=== PATIENT | female | born 1965 | race Caucasian/White ===

== ENCOUNTER → 2017-11-10 15:22 | Outpatient (CLI) | payer OTHER, SELFPAY ==
--- NOTE | 2017-11-10 15:27 | NVE_ITS ---
Venous Exam Indications: 729.5 Pain in limb. IMPRESSIONS 1. There is no evidence of significant Reflux. 2. No evidence of deep or superficial vein thrombosis involving the left lower extremity 3. Vessels in lower leg are small. Left lower extremity venous duplex evaluation. Doppler flow study including spectral analysis, color and jacinto scale imaging. Location: Vascular laboratory. Patient status: Outpatient. Tables: Venous flow and imaging: + +-------+ + Location Overall Flow properties + +-------+ + Left common femoral Patent Normal phasicity; spontaneous; normal augmentation; compressible + +-------+ + Left saphenofemoral junction Patent Compressible + +-------+ + Left profunda femoral Patent Compressible + +-------+ + Left femoral Patent Normal phasicity; spontaneous; normal augmentation; compressible + +-------+ + Left greater saphenous Patent Normal phasicity; spontaneous; normal augmentation; compressible + +-------+ + Left popliteal Patent Normal phasicity; spontaneous; normal augmentation; compressible + +-------+ + Left posterior tibial Patent Compressible + +-------+ + Left peroneal Patent Compressible + +-------+ + Left gastrocnemius Patent Compressible + +-------+ + Left soleal Patent Compressible + +-------+ + (Report amended ) Electronically signed by: Leandro Owen [id number]
--- NOTE | 2017-11-10 15:27 | XR_ITS ---
XR hand LT min 3V HISTORY: ITS.REASON: Pain ORDERING PHYSICIAN: SHAHLA Madden PATIENT AGE: 52 years COMPARISON: None FINDINGS: No fracture or dislocation. No lytic or blastic change. There is normal mineralization.. Osteoarthritic changes are present at the first metacarpal carpal joint. No erosive changes evident. Subarticular cystic changes involving the distal scaphoid and the proximal aspect of the first metacarpal IMPRESSION: Osteoarthritis of the first metacarpal carpal joint with subarticular cystic changes, otherwise negative left hand
== END ==
PROVIDERS: PCP Physician Assistant; Visit Provider Physician Assistant
DX: M79.605 Pain in left leg (principal); M79.89 Other specified soft tissue disorders
CPT/HCPCS: 73130; 93971

== ENCOUNTER → 2017-12-10 16:22 | Outpatient (REF) | payer OTHER, BC, SELFPAY ==
[2017-12-10 17:37] LABS: Basophils % 0.3 % (0.1-2.0); Eosinophils # 0.1 K/mm3 (0.0-0.4); Eosinophils % 1.1 % (0.1-12.0); Hematocrit 43.4 % (37.0-47.0); Hemoglobin 14.3 g/dL (12.2-16.2); Lymphocytes % 19.8 K/mm3 (10-50); Mean Corpuscular HGB Conc 32.8 g/dL (31.8-35.4); Mean Corpuscular Hemoglobin 30.7 pg (27.0-31.2); Mean Corpuscular Volume 93.6 fl (81-99); Mean Platelet Volume 8.1 fl (7.4-10.4); Monocytes # 0.6 K/mm3 (0.1-1.0); Monocytes % 5.9 % (1.7-9.3); Neutrophils # 7.4 K/mm3 (1.8-7.8); Neutrophils % 72.9 % (37.0-80.0); Platelet Count 288 K/mm3 (142-424); Red Blood Count 4.64 M/mm3 (4.20-5.40); Red Cell Distribution Width 12.3 % (11.5-17.5); White Blood Count 10.2 K/mm3 (4.8-10.8)
[2017-12-10 20:34] LABS: Alanine Aminotransferase 65 U/L (12-78); Albumin/Globulin Ratio 1.4 (1.1-1.8); Alkaline Phosphatase 56 U/L (46-116); Anion Gap 13.2 mEq/L (5-15); Aspartate Amino Transferase 16 U/L (15-37); Bilirubin,Total 0.4 mg/dL (0.2-1.0); Blood Urea Nitrogen 24 mg/dL (7-18); Calcium 8.8 mg/dL (8.5-10.1); Carbon Dioxide 26 mmol/L (21.0-32.0); Chloride 103 mmol/L (98-107); Chol/HDL Ratio 3.4 (1-3.5); Cholesterol 217 mg/dL (140-200); Creatinine,Serum 0.86 mg/dL (0.55-1.02); Estimated Glomerular Filt Rate 70 ml/min (>60); GFR (African American) 84 ML/MIN (>60); Globulin 2.8 gm/dl (1.3-3.2); Glucose 97 mg/dL (74-106); HDL Cholesterol 64 mg/dL (29-89); LDL Cholesterol 136 mg/dL (0-130); Potassium 4.2 mmoL/L (3.5-5.1); Sodium 138 mmol/L (136-145); T4 (Thyroxine) 8.3 ug/dl (4.7-13.3); Thyroid Stimulating Hormone 2.53 uIU/ml (0.358-3.740); Total Protein,Serum 6.8 gm/dL (6.4-8.2); Triglycerides 84 mg/dL (30-200); VLDL Cholesterol 17 mg/dL (0-40)
== END ==
LOC: LAB 16:22
PROVIDERS: Visit Provider Physician Assistant
DX: M79.89 Other specified soft tissue disorders (principal)
CPT/HCPCS: 80053; 80061; 82652; 84436; 84443; 85025

== ENCOUNTER 2017-12-21 08:00 | Outpatient (RCR) | payer OTHER, BC, SELFPAY ==
--- NOTE | 2017-11-27 08:40 | HMH.OTOPEV ---
OT Inpatient Evaluation Rehab OT Outpatient Eval Start: 11/27/17 08:26 Freq: Status: Active Protocol: Document 11/27/17 08:27 TFRY (Rec: 11/27/17 08:39 TFRY [id number]) Electronically Signed By Sera Barnett, OT 11/27/17 08:27 Outpatient Therapy Subjective History Subjective History THIS IS A 52 YEAR OLD RIGHT HANDED FEMALE REFERRED TO OCCUPATIONAL THERAPY FOR LEFT HAND PAIN. PATIENT STATES THAT SHE INJURIED IT MID/END JULY. SHE REPORTS THAT IT STARTED HURTING AGAIN APPROXIMATELY A MONTH AGO. Chief Complaint Pain Decreased Director Trade Strength Symptom Type Ache Sharp Symptoms Relieved By Rest/Positioning Symptoms Aggravated By Physical Activity Prior Functional Limitations None Current Functional Limitations None Symptom Description Constant but Variable Level of pain today (0-10) 2 Pain scale - at its best (0-10) 2 Pain scale - at its worst (0-10) 7 Wrist/Hand Eval Wrist Range of Motion Wrist ROM Reason Not Measured Within Functional Limits Finger Range of Motion Left Index Finger Finger Metacarpophalangeal Flexion WFL Active Range of Motion (degrees) Finger Metacarpophalangeal Extension WFL Active Range of Motion (degrees) Finger Proximal Interphalangeal Flexion WFL Active Range (degrees) Finger Proximal Interphalangeal WFL Extension Active Range (degrees) Finger Distal Interphalangeal Flexion WFL Active Range of Motion (degrees) Finger Distal Interphalangeal Extension WFL Active Range Motion (degrees) Director Trade/Pinch Strength Right Director Trade Strength Measurement (lbs) 75 Palmar Pinch (3-point) Ability Normal Performance Palmar Pinch (3-point) Strength 9 Measurement (lbs) Tip Pinch (2-point) Ability Normal Performance Tip Pinch (2-point) Strength Measurement 2 (lbs) Lateral Pinch Ability Normal Performance Lateral Pinch Strength Measurement (lbs) 12 Left Director Trade Strength Measurement (lbs) 27 Palmar Pinch (3-point) Ability Normal Performance Palmar Pinch (3-point) Strength 0 Measurement (lbs) Tip Pinch (2-point) Ability Normal Performance Tip Pinch (2-point) Strength Measurement 0 (lbs) Lateral Pinch Ability Normal Performance Lateral Pinch Strength Measurement (lbs) 1 OT Outpatient Assessment Impairments Problems/Impairments Palpation Tenderness Impaired Strength Subjective C/O Pain Prognosis Rehab Potential
== END 2018-01-20 10:24 | disposition home or self-care (01) ==
LOC: OT 08:00
PROVIDERS: PCP Physician Assistant; Visit Provider Physician Assistant
DX: M79.642 Pain in left hand (principal)
CPT/HCPCS: 97110; 97140; 97165

== ENCOUNTER → 2018-06-21 17:45 | Outpatient (CLI) | payer OTHER, BC, SELFPAY ==
[2018-06-21 18:25] LABS: Basophils % 0.6 % (0.1-2.0); Eosinophils # 0.1 K/mm3 (0.0-0.4); Hematocrit 45.5 % (37.0-47.0); Lymphocytes # 2.1 K/mm3 (0.7-4.5); Lymphocytes % 34.9 % (10-50); Mean Corpuscular Hemoglobin 30.8 pg (27.0-31.2); Mean Corpuscular Volume 93.5 fl (81-99); Mean Platelet Volume 9.6 fl (7.4-10.4); Monocytes # 0.3 K/mm3 (0.1-1.0); Monocytes % 4.9 % (1.7-9.3); Neutrophils # 3.4 K/mm3 (1.8-7.8); Neutrophils % 57.6 % (37.0-80.0); Platelet Count 245 K/mm3 (142-424); Red Blood Count 4.87 M/mm3 (4.20-5.40); Red Cell Distribution Width 12.8 % (11.5-17.5); White Blood Count 5.9 K/mm3 (4.8-10.8)
[2018-06-21 18:47] LABS: Alanine Aminotransferase 27 U/L (12-78); Albumin Level 4.3 gm/dL (3.4-5.0); Albumin/Globulin Ratio 1.4 (1.1-1.8); Alkaline Phosphatase 62 U/L (46-116); Anion Gap 12.6 mEq/L (5-15); Aspartate Amino Transferase 21 U/L (15-37); Bilirubin,Total 0.4 mg/dL (0.2-1.0); Blood Urea Nitrogen 19 mg/dL (7-18); Calcium 9.9 mg/dL (8.5-10.1); Carbon Dioxide 28 mmol/L (21.0-32.0); Chloride 102 mmol/L (98-107); Chol/HDL Ratio 3.5 (1-3.5); Cholesterol 234 mg/dL (140-200); Creatinine,Serum 0.76 mg/dL (0.55-1.02); Estimated Glomerular Filt Rate 80 ml/min (>60); GFR (African American) 97 ML/MIN (>60); Glucose 96 mg/dL (74-106); HDL Cholesterol 67 mg/dL (29-89); LDL Cholesterol 152 mg/dL (0-130); Potassium 3.6 mmoL/L (3.5-5.1); Sodium 139 mmol/L (136-145); T4 (Thyroxine) 9.6 ug/dl (4.7-13.3); Thyroid Stimulating Hormone 1.97 uIU/ml (0.358-3.740); Total Protein,Serum 7.3 gm/dL (6.4-8.2); Triglycerides 76 mg/dL (30-200); VLDL Cholesterol 15 mg/dL (0-40)
[2018-06-23 08:27] LABS: Testosterone,Total 8 ng/dL (3-41)
[2018-06-23 08:39] LABS: Estradiol 14.1 pg/mL (.); FSH 57.1 mIU/mL (.); Vitamin B12 604 pg/mL (232-1245); Vitamin D 25 Hydroxy 41.6 ng/mL (30.0-100.0)
[2018-06-23 09:31] LABS: Folate 15.5 ng/mL (>3.0)
== END ==
PROVIDERS: Visit Provider Physician Assistant
DX: Z00.00 Encounter for general adult medical examination without abnormal findings (principal); R42 Dizziness and giddiness
CPT/HCPCS: 80053; 80061; 82607; 82652; 82670; 82746; 83001; 83002; 84403; 84436; 84443; 85025

== ENCOUNTER 2018-06-29 07:30 | Outpatient (RCR) | payer OTHER, BC, SELFPAY | END 2018-06-29 11:30 | disposition home or self-care (01) | LOC: PT.CARL 07:30 | PROVIDERS: PCP Physician Assistant; Visit Provider Orthopaedic Surgery | DX: S52.125A Nondisplaced fracture of head of left radius, initial encounter for closed fracture (principal) | CPT/HCPCS: 97010; 97014; 97035; 97110; 97140; 97163; 97164; G0283 ==

== ENCOUNTER → 2018-06-30 13:40 | Outpatient (CLI) | payer OTHER, BC, SELFPAY ==
--- NOTE | 2018-06-30 13:43 | CT_ITS ---
CT head/brain wo con HISTORY: ITS.REASON: Vertigo ORDERING PHYSICIAN: SHAHLA Madden PATIENT AGE: 53 years COMPARISON: None TECHNIQUE: Axial images obtained without contrast. Brain and bone windows reviewed. All CT scans at the facility use one or more dose reduction, viz: automated exposure control, ma/kV adjustment per patient size (including targeted exams where dose is matched to indication, i.e. head), or iterative reconstruction technique. FINDINGS: No midline shift, mass effect, hydrocephalus, or extra-axial fluid collection is evident. There is a small hyperdensity in the right parietal lobe on image #29 measuring 4 mm. This may be due to an area of partial averaging from overlying cortex or small area faint calcification. An intraparenchymal hemorrhage is felt to be less likely however, would recommend short-term follow-up in 24 hours for confirmation. The calvarium has an unremarkable appearance. No mastoid effusion. There is an air-fluid level in the left maxillary sinus.. IMPRESSION: 1. No definite acute intracranial findings. 2. Small hyperdensity in the right parietal lobe which may be due to an area of minimal calcification. Suggest follow-up unenhanced CT exam in 24 hours to confirm stability. A small parenchymal hemorrhage is felt to be less likely 3. Left maxillary sinusitis
== END ==
PROVIDERS: PCP Physician Assistant; Visit Provider Physician Assistant
DX: R42 Dizziness and giddiness (principal)
CPT/HCPCS: 70450

== ENCOUNTER → 2018-07-01 10:22 | Outpatient (CLI) | payer OTHER, BC, SELFPAY ==
--- NOTE | 2018-07-01 10:26 | CT_ITS ---
CT head/brain wo con HISTORY: Vertigo, loss of balance, follow-up abnormal head CT ITS.REASON: abn CT head ORDERING PHYSICIAN: SHAHLA Madden PATIENT AGE: 53 years COMPARISON: 06/30/2018 TECHNIQUE: Axial images obtained without contrast. Helical images are also performed without contrast. Sagittal and coronal reformatted images are generated and reviewed. Brain and bone windows reviewed. All CT scans at the facility use one or more dose reduction, viz: automated exposure control, ma/kV adjustment per patient size (including targeted exams where dose is matched to indication, i.e. head), or iterative reconstruction technique. FINDINGS: No midline shift, mass effect, intracranial hemorrhage, hydrocephalus, or extra-axial fluid collection is evident. Previously noted hyperdensity in the right parietal region is once again noted but somewhat less apparent likely due to the slice orientation. No acute intracranial hemorrhage is evident. No midline shift or mass effect. The calvarium has an unremarkable appearance. No mastoid effusion. No sinus air-fluid levels.. IMPRESSION: No acute intracranial findings. Previously noted hyperdensity in the right parietal region is felt to be due partial volume averaging from the sulci. No acute intracranial hemorrhage
== END ==
PROVIDERS: PCP Physician Assistant; Visit Provider Physician Assistant
DX: R93.0 Abnormal findings on diagnostic imaging of skull and head, not elsewhere classified (principal)
CPT/HCPCS: 70450

== ENCOUNTER → 2018-07-09 15:13 | Outpatient (CLI) | payer BC, OTHER, SELFPAY ==
--- NOTE | 2018-07-09 15:14 | MM_ITS ---
MM Dig screening mamm BI w/CAD CAD Screening COMPARISON: Digital mammograms with CAD 03/31/2017 INDICATION: Is a history of breast cancer in patient's mother diagnosed in her 70s. TECHNIQUE: Standard CC and MLO images were obtained. R2 CAD reviewed. FINDINGS: Mild diffuse scattered fibroglandular densities are seen throughout both breasts. There is a benign-appearing calcification right breast. There is no suspicious lesion and no suspicious microcalcifications. IMPRESSION: Fibrofatty parenchyma with no suspicious lesion seen. BI-RADS Category: 2 Benign Finding(s) RECOMMENDED FOLLOW-UP: 1YR - 1 YEAR FOLLOW-UP (A letter has been sent to the patient regarding results of the study.)
== END ==
PROVIDERS: PCP Physician Assistant; Visit Provider Physician Assistant
DX: Z12.31 Encounter for screening mammogram for malignant neoplasm of breast (principal)
CPT/HCPCS: 77067

== ENCOUNTER → 2018-08-26 14:23 | Outpatient (CLI) | payer OTHER, SELFPAY ==
--- NOTE | 2018-08-26 14:30 | NVE_ITS ---
Venous Exam Indications: 782.3 Edema. IMPRESSIONS 1. There is no evidence of significant Reflux. 2. No evidence of deep or superficial vein thrombosis involving the left lower extremity Left lower extremity venous duplex evaluation. Doppler flow study including spectral analysis, color and jacinto scale imaging. Location: Vascular laboratory. Patient status: Outpatient. Tables: Venous flow and imaging: + +-------+ + Location Overall Flow properties + +-------+ + Left common femoral Patent Normal phasicity; spontaneous; normal augmentation; compressible + +-------+ + Left saphenofemoral junction Patent Compressible + +-------+ + Left profunda femoral Patent Compressible + +-------+ + Left femoral Patent Normal phasicity; spontaneous; normal augmentation; compressible + +-------+ + Left greater saphenous Patent Normal phasicity; spontaneous; normal augmentation; compressible + +-------+ + Left popliteal Patent Normal phasicity; spontaneous; normal augmentation; compressible + +-------+ + Left posterior tibial Patent Compressible + +-------+ + Left peroneal Patent Compressible + +-------+ + Left gastrocnemius Patent Compressible + +-------+ + Left soleal Patent Compressible + +-------+ + (Report amended ) Electronically signed by: Bill De Leon [id number]
== END ==
PROVIDERS: PCP Emergency Medicine; Visit Provider Physician Assistant
DX: M79.605 Pain in left leg (principal)
CPT/HCPCS: 93971

== ENCOUNTER → 2018-09-24 11:12 | Outpatient (CLI) | payer OTHER, SELFPAY ==
--- NOTE | 2018-09-24 11:14 | MR_ITS ---
MR knee LT wo con HISTORY: Left knee pain and swelling with stiffness and instability ITS.REASON: left knee pain and swelling ORDERING PHYSICIAN: SHAHLA Morales PATIENT AGE: 53 years Comparison: TECHNIQUE: Standard multiplanar multiecho sequences are performed without contrast. FINDINGS: The cruciate ligaments, collateral ligaments, patellar tendon, and quadriceps tendon appear intact. No obvious meniscal tear. There is thinning of the patellar cartilage and mild spurring of the posterior aspect of the patella. There is a small knee joint effusion. No bone bruise or fracture. No bone marrow edema. IMPRESSION: 1. No internal derangement 2. Chondromalacia patella with mild osteoarthritic change of the patellofemoral joint and small knee joint effusion
== END ==
PROVIDERS: PCP Physician Assistant; Visit Provider Physician Assistant
DX: M25.562 Pain in left knee (principal)
CPT/HCPCS: 73721

== ENCOUNTER → 2018-10-25 13:47 | Outpatient (CLI) | payer OTHER, SELFPAY ==
--- NOTE | 2018-10-25 13:54 | XR_ITS ---
XR elbow LT min 3V HISTORY: Follow-up fracture ITS.REASON: 3 views ORDERING PHYSICIAN: Wilda Lay MD PATIENT AGE: 53 years COMPARISON: 08/12/2018 FINDINGS: Mildly depressed fracture involves radial head. Fracture line appears somewhat less apparent compared to the previous exam. There is minimal depression of the lateral fracture fragment some developing hyperostosis laterally. IMPRESSION: Healing radial head fracture with mild depression
== END ==
PROVIDERS: PCP Physician Assistant; Visit Provider Orthopaedic Surgery
DX: S42.402A Unspecified fracture of lower end of left humerus, initial encounter for closed fracture (principal)
CPT/HCPCS: 73080

== ENCOUNTER → 2018-11-02 14:51 | Outpatient (CLI) | payer OTHER, SELFPAY ==
--- NOTE | 2018-11-02 14:52 | CA_ITS ---
PROCEDURE: 2-D M-mode and color Doppler study INDICATIONS FOR THE TEST: Chest pain COPD Heart Murmur+ Tobacco Smoking Palpitations+ Fatigue+ Syncope Edema+ Hypertension+Diabetes Mellitus Rheumatic Fever SOB+HALL+Obesity Hyperlipidemia Family History HD Additional History Dizziness PATIENT INFORMATION HEIGHT: 67 WEIGHT: 205 GENDER: Female B/P: 127/81 2-D/M-MODE INTERPRETATION: 2-D MEASUREMENTS OBSERVED VALUES IN CMS Right Ventricular Dimension (RVDd) 2.4 Interventricular Septum (Thickness)(IVsd) 0.8 Left Ventricular Internal Dimensions(LVIDd) 3.6 Left Ventricular Posterior Wall (Thickness)(LVPWd) 1.0 Aortic Root 3.0 Aortic Cusp Separation 2.0 Left Atrial Dimensions (LAD) 3.5 2D 1. Mildly enlarged, left ventricle is normal size, mild concentric left ventricular hypertrophy, visually estimated ejection fraction 55% with no regional wall motion abnormality. 2. The right atrium and right ventricle are normal size and contractility. 3. The aortic valve is thickened and calcified, leaflet continue to display mobility. 4. The mitral and tricuspid valve leaflets are minimally thickened. 5. The pulmonic valve is poorly visualized. 6. No significant pericardial effusion noted. DOPPLER INTERROGATION: Doppler interrogation of the aortic, mitral and tricuspid valvular presence of mild aortic, mild mitral and tricuspid regurgitation, tricuspid regurgitation jet velocity is inadequate for calculation of the right ventricular systolic pressure, grade 1 diastolic dysfunction seen without tissue Doppler evidence of raised left atrial pressure. CONCLUSION: 1. Mildly enlarged left atrium, normal left ventricular size, mild concentric left ventricular hypertrophy, visually estimated ejection fraction 55% with no regional wall motion abnormality, grade 1 diastolic dysfunction seen without tissue Doppler evidence of raised left atrial pressure. 2. Mild aortic, mild mitral and tricuspid regurgitation 3. No significant pericardial effusion noted.
== END ==
PROVIDERS: PCP Physician Assistant; Visit Provider Physician Assistant
DX: R01.1 Cardiac murmur, unspecified (principal); R06.00 Dyspnea, unspecified
CPT/HCPCS: 93306

== ENCOUNTER → 2018-12-09 10:46 | Outpatient (CLI) | payer OTHER, SELFPAY ==
--- NOTE | 2018-12-09 10:47 | US_ITS ---
US Arterial Lower Ext Rest History: ITS.REASON: leg pain, bilateral rest pain, left-sided claudication ORDERING PHYSICIAN: SHAHLA Morales PATIENT AGE: 53 years TECHNIQUE: Segmental pressures obtained of both right and left leg. These are compared to brachial blood pressure to yield index at each level sampled including summary DARIANA. The data sheets from the procedure are available in PACS FINDINGS Rest study only performed today No prior studies available for comparison. Blood pressures reported are in millimeters mercury. RIGHT LEG DARIANA = 1.1. RIGHT LEG TBI=1.0 Brachial BP: 141 Thigh BP: 164 Calf BP: 161 Ankle PT: 161 Ankle DP : 156 Digit =153 LEFT LEG DARIANA = 1.1 LEFT LEG TBI= 1.0 Brachial BPD: 148 Thigh BP: 151 Calf BP: 154 Ankle PT:168 Ankle DP: 157 Digit = 142 Pulses and waveforms: Normal IMPRESSION: The ABIs as reported above are within normal limits. Waveforms and pulses are also unremarkable.
== END ==
PROVIDERS: PCP Physician Assistant; Visit Provider Physician Assistant
DX: M79.604 Pain in right leg (principal); M79.605 Pain in left leg
CPT/HCPCS: 93923

== ENCOUNTER → 2018-12-28 10:58 | Outpatient (POV) | payer OTHER, SELFPAY ==
[2018-12-28 11:17] VITALS: BP 139/82; PULSE 78; RESP 18; O2SAT 98; BMI 36.5
--- NOTE | 2018-12-28 12:15 | HMH.PMCON ---
Assessment and Plan (1) Thoracic degenerative disc disease Current visit: Yes Status: Chronic Category: Medical Code(s): M51.34 - Other intervertebral disc degeneration, thoracic region (2) Lumbar disc herniation with radiculopathy Current visit: No Status: Chronic Category: Medical Code(s): M51.16 - Intervertebral disc disorders with radiculopathy, lumbar region (3) Low Back Pain Current visit: No Status: Chronic Qualifiers: Chronicity: chronic Back pain laterality: bilateral Sciatica presence: without sciatica Qualified Code(s): M54.5 - Low back pain; G89.29 - Other chronic pain Category: Medical Code(s): M54.5 - Low back pain - Assessment and plan all Dx Assessment and Plan for all problems:: Patient has been receiving T3-4 thoracic epidurals along with L4-L5 lumbar epidural steroid injections from the [facility]. We will take over this. Patient will start with just a 3-month follow-up however she understands if she needs injections prior to this she just needs to give us a call. She is not on any anticoagulation therapy. She is continuing a home stretching program along with anti-inflammatories. Dr. Okeefe has reviewed this note and agrees with this plan of care. This note was dictated using voice recognition software and may contain errors or omissions HPI - Data of Consult Consult date: 12/28/18 Requesting Physician: Rosalva Wallis APRN Primary Care Provider: SHAHLA Morales - Consult Narrative Reason for consult: back pain History of present illness: Ms. Tran is a 53 year old female who presents today to [facility] care. Patient's been going to the [facility] and receiving thoracic and lumbar epidural steroid injections with good relief. She would like to continue somewhere closer. Patient has degenerative disc disease with thoracic and lumbar spine. Patient states that she will utilizes epidural injections when necessary. Patient typically gets her lumbar epidural steroid injections at the L4-L5 level patient also gets thoracic injections at the T3-T4 level overall she is done extremely well with getting relief for several months at a time. She is on anti-inflammatories and continues a home stretching program. CC: Rosalva Wallis APRN [facility] History I have reviewed the patient's past medical history: Yes Medical History: Reports:: Heart Murmur, Hypertension, Palpitations *Have you ever received a pneumonia vaccine?: Yes *Have you received a flu vaccine this season?: Yes Other Surgeries: Yes: Cholecystectomy, Hysterectomy-Partial Amputation: No Fractures: Yes - *Social History Smoking Status: Never smoker Alcohol Intake: current Alcohol Intake Frequency:: a few times a week Substance Use Type: denies use *Occupational Status:: retired Housing: house *Travel in the last 8 weeks: None Family Hx:: Cancer, Diabetes Review of Systems - Review of Systems Today ROS General: no recent weight change, no fever, no sleep disturbances Respiratory: no cough, no shortness of air, no recurring pulmonary infections Cardiovascular/Peripheral Vascular: No chest pain, No palpitations, no edema, no shortness of breath. Gastrointestinal: no incontinence, normal bowel movements reported Genitourinary: no incontinence Musculoskeletal: Back pain Psychiatric: normal mood/ affect Neurological: [denies weakness in extremities], [denies balance issues] Meds Home Medications Medication Instructions Recorded Confirmed Type conjugated estrogens 0.625 mg/gram 1 applic VAGINAL DAILY #30 g 06/21/18 10/25/18 Rx vaginal cream diclofenac sodium 75 mg 75 mg PO BID #60 tab 10/07/18 10/25/18 Rx tablet,delayed release glycerin-mineral oil-polycarbophil 1 each VAGINAL DAILY #53.6 g 10/07/18 10/25/18 Rx vaginal gel meloxicam 15 mg tablet 15 mg PO DAILY 10/07/18 10/25/18 History lisinopril 10 mg tablet 10 mg PO DAILY #90 tab 10/25/18 Rx Allergies Allergy/AdvRea
--- NOTE | 2018-12-28 12:18 | P.CONS_ITS ---
Assessment and Plan (1) Thoracic degenerative disc disease Current visit: Yes Status: Chronic Category: Medical Code(s): M51.34 - Other intervertebral disc degeneration, thoracic region (2) Lumbar disc herniation with radiculopathy Current visit: No Status: Chronic Category: Medical Code(s): M51.16 - Intervertebral disc disorders with radiculopathy, lumbar region (3) Low Back Pain Current visit: No Status: Chronic Qualifiers: Chronicity: chronic Back pain laterality: bilateral Sciatica presence: without sciatica Qualified Code(s): M54.5 - Low back pain; G89.29 - Other chronic pain Category: Medical Code(s): M54.5 - Low back pain - Assessment and plan all Dx Assessment and Plan for all problems:: Patient has been receiving T3-4 thoracic epidurals along with L4-L5 lumbar epidural steroid injections from the [facility]. We will take over this. Patient will start with just a 3-month follow-up however she understands if she needs injections prior to this she just needs to give us a call. She is not on any anticoagulation therapy. She is continuing a home stretching program along with anti-inflammatories. Dr. Okeefe has reviewed this note and agrees with this plan of care. This note was dictated using voice recognition software and may contain errors or omissions HPI - Data of Consult Consult date: 12/28/18 Requesting Physician: Rosalva Wallis APRN Primary Care Provider: SHAHLA Morales - Consult Narrative Reason for consult: back pain History of present illness: Ms. Tran is a 53 year old female who presents today to [facility] care. Patient's been going to [facility] and receiving thoracic and lumbar epidural steroid injections with good relief. She would like to continue somewhere closer. Patient has degenerative disc disease with thoracic and lumbar spine. Patient states that she will utilizes epidural injections when necessary. Patient typically gets her lumbar epidural steroid injections at the L4-L5 level patient also gets thoracic injections at the T3-T4 level overall she is done extremely well with getting relief for several months at a time. She is on anti-inflammatories and continues a home stretching program. CC: Rosalva Wallis APRN [facility] History I have reviewed the patient's past medical history: Yes Medical History: Reports:: Heart Murmur, Hypertension, Palpitations *Have you ever received a pneumonia vaccine?: Yes *Have you received a flu vaccine this season?: Yes Other Surgeries: Yes: Cholecystectomy, Hysterectomy-Partial Amputation: No Fractures: Yes - *Social History Smoking Status: Never smoker Alcohol Intake: current Alcohol Intake Frequency:: a few times a week Substance Use Type: denies use *Occupational Status:: retired Housing: house *Travel in the last 8 weeks: None Family Hx:: Cancer, Diabetes Review of Systems - Review of Systems Today ROS General: no recent weight change, no fever, no sleep disturbances Respiratory: no cough, no shortness of air, no recurring pulmonary infections Cardiovascular/Peripheral Vascular: No chest pain, No palpitations, no edema, no shortness of breath. Gastrointestinal: no incontinence, normal bowel movements reported Genitourinary: no incontinence Musculoskeletal: Back pain Psychiatric: normal mood/ affect Neurological: [denies weakness in extremities], [denies balance issues] Meds Home Medications Medication Instructions Recorded Confirmed Type
== END ==
PROVIDERS: PCP Physician Assistant; Visit Provider Clinical Nurse Specialist Family Health
DX: M51.34 Other intervertebral disc degeneration, thoracic region (principal); M51.16 Intervertebral disc disorders with radiculopathy, lumbar region
CPT/HCPCS: 99202

== ENCOUNTER → 2019-03-28 14:43 | Outpatient (POV) | payer OTHER, SELFPAY ==
[2019-03-28 15:07] VITALS: BP 138/81; PULSE 72; RESP 18; O2SAT 98; BMI 32.8
--- NOTE | 2019-03-29 08:52 | HMH.PAINSOAP ---
[facility] Pain Management SOAP Note Subjective:: Patient is a pleasant 53-year-old white female who presents today for follow-up. Patient overall doing well. Patient has been getting epidural injections and thoracic epidurals when needed however at this time she states she is doing well she rates her pain a 3 out of 10. She is not on any anticoagulation. She has continued a home stretching program along with anti-inflammatories. She is having some muscle spasms. She is to be on methocarbamol will restart this. ROS General: no recent weight change, no fever, no sleep disturbances Respiratory: no cough, no shortness of air, no recurring pulmonary infections Cardiovascular/Peripheral Vascular: No chest pain, No palpitations, no edema, no shortness of breath. Gastrointestinal: no new onset incontinence, normal bowel movements reported Genitourinary: no new onset incontinence Musculoskeletal: Back pain, myofascial pain Psychiatric: normal mood/ affect Neurological: [denies new onset weakness in extremities], [denies new onset balance issues] Objective:: Physical Exam General: Alert and oriented x3, no acute distress, pleasant and cooperative, [on room air] Lungs: Resps E/U, Symmetrical chest expansion, Eyes: PERRL Musculoskeletal: Flexion and extension of lumbar spine somewhat guarded secondary to pain, deep tendon reflexes normal, strength in upper and lower extremities [5/5], [abnormal gait noted] Neurological: speech clear, 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 3 times daily as needed. Patient is instructed to call the office if she has any issues prior to her next appointment. We will see her back in 3 months reassess her symptoms at that time. Dr. Okeefe has reviewed this note and agrees with this plan of care. This note was dictated using voice recognition software and may contain errors or omissions [facility] History I have reviewed the patient's past medical history: Yes Medical History: Reports:: Heart Murmur, Hypertension, Palpitations *Have you ever received a pneumonia vaccine?: No *Have you received a flu vaccine this season?: No Other Surgeries: Yes: Cholecystectomy, Hysterectomy-Partial Amputation: No Fractures: Yes - *Social History Smoking Status: Never smoker Alcohol Intake: current Alcohol Intake Frequency:: a few times a week Substance Use Type: denies use *Occupational Status:: other Housing: house *Travel in the last 8 weeks: None Family Hx:: Cancer, Diabetes
== END ==
PROVIDERS: PCP Physician Assistant; Visit Provider Clinical Nurse Specialist Family Health
DX: M51.16 Intervertebral disc disorders with radiculopathy, lumbar region (principal)
CPT/HCPCS: 99212

== ENCOUNTER → 2019-04-20 16:47 | Outpatient (CLI) | payer OTHER, SELFPAY ==
[2019-04-20 17:21] LABS: Basophils % 0.3 % (0.1-2.0); Eosinophils # 0.1 K/mm3 (0.0-0.4); Eosinophils % 1.6 % (0.1-12.0); Hematocrit 41.4 % (37.0-47.0); Hemoglobin 13.4 g/dL (12.2-16.2); Lymphocytes # 1.7 K/mm3 (0.7-4.5); Lymphocytes % 21.1 % (10-50); Mean Corpuscular HGB Conc 32.4 g/dL (31.8-35.4); Mean Corpuscular Volume 95.6 fl (81-99); Mean Platelet Volume 9.2 fl (7.4-10.4); Monocytes # 0.3 K/mm3 (0.1-1.0); Monocytes % 4.1 % (1.7-9.3); Neutrophils # 5.8 K/mm3 (1.8-7.8); Neutrophils % 72.9 % (37.0-80.0); Platelet Count 223 K/mm3 (142-424); Red Blood Count 4.33 M/mm3 (4.20-5.40); Red Cell Distribution Width 12.7 % (11.5-17.5); White Blood Count 7.9 K/mm3 (4.8-10.8)
[2019-04-20 18:27] LABS: Alanine Aminotransferase 20 U/L (12-78); Albumin Level 3.9 gm/dL (3.4-5.0); Albumin/Globulin Ratio 1.4 (1.1-1.8); Alkaline Phosphatase 54 U/L (46-116); Aspartate Amino Transferase 20 U/L (15-37); Bilirubin,Total 0.3 mg/dL (0.2-1.0); Blood Urea Nitrogen 17 mg/dL (7-18); Calcium 8.7 mg/dL (8.5-10.1); Carbon Dioxide 28 mmol/L (21.0-32.0); Chloride 105 mmol/L (98-107); Chol/HDL Ratio 3.6 (1-3.5); Cholesterol 208 mg/dL (140-200); Creatinine,Serum 0.75 mg/dL (0.55-1.02); Estimated Glomerular Filt Rate 81 ml/min (>60); GFR (African American) 98 ML/MIN (>60); Globulin 2.7 gm/dl (1.3-3.2); Glucose 109 mg/dL (74-106); HDL Cholesterol 57 mg/dL (29-89); LDL Cholesterol 129 mg/dL (0-130); Sodium 143 mmol/L (136-145); T4 (Thyroxine) 9.3 ug/dl (4.7-13.3); Thyroid Stimulating Hormone 1.98 uIU/ml (0.358-3.740); Total Protein,Serum 6.6 gm/dL (6.4-8.2); Triglycerides 111 mg/dL (30-200); VLDL Cholesterol 22 mg/dL (0-40)
[2019-04-20 21:26] LABS: Hemoglobin A1C 5.4 % (0.0-7.0)
== END ==
PROVIDERS: Visit Provider Physician Assistant
DX: B37.9 Candidiasis, unspecified (principal)
CPT/HCPCS: 80053; 80061; 82652; 83036; 84436; 84443; 85025

== ENCOUNTER → 2019-05-24 13:23 | Outpatient (CLI) | payer OTHER, SELFPAY ==
[2019-05-24 13:55] LABS: Uric Acid 3.8 mg/dL (2.6-7.2)
[2019-05-24 13:56] LABS: C-Reactive Protein < 0.2 mg/dL (0.0-0.9)
[2019-05-24 14:56] LABS: Erythrocyte Sedimentation Rate 14 mm/hr (0-30)
[2019-05-25 06:01] LABS: HIV Screen 4th Generation wRfx Non Reactive (Non Reactive)
== END ==
PROVIDERS: Visit Provider Physician Assistant
DX: M51.34 Other intervertebral disc degeneration, thoracic region (principal)
CPT/HCPCS: 84550; 85651; 86140; 86703; G0432

== ENCOUNTER → 2019-06-04 08:01 | Outpatient (CLI) | payer OTHER, SELFPAY ==
[2019-06-04 08:36] LABS: Glucose,Fasting 103 mg/dL (60-105)
[2019-06-04 09:50] LABS: Glucose 1 Hour 119 mg/dL (74-106)
[2019-06-04 10:54] LABS: Glucose 2 Hour 106 mg/dL (74-106)
[2019-06-04 11:57] LABS: Glucose 3 Hour 89 mg/dL (74-106)
== END ==
PROVIDERS: Visit Provider Physician Assistant
DX: E11.9 Type 2 diabetes mellitus without complications (principal)
CPT/HCPCS: 36415; 82951

== ENCOUNTER → 2019-08-11 08:57 | Outpatient (CLI) | payer OTHER, SELFPAY | PROVIDERS: Visit Provider Physician Assistant | DX: B37.0 Candidal stomatitis (principal) | CPT/HCPCS: 87220 ==

== ENCOUNTER → 2019-09-05 09:04 | Outpatient (CLI) | payer OTHER, SELFPAY ==
--- NOTE | 2019-09-05 09:09 | XR_ITS ---
PROCEDURE: XR KNEE LT 4V CLINICAL INDICATION: left knee pain; weightbearing COMPARISON: No exams were available for comparison FINDINGS: There are mild osteoarthritic changes involving all 3 compartments. Osteophytes are noted at the intercondylar region of the distal femur and along the proximal patella. There is a small well-circumscribed ossification lateral to the mid aspect of the patella No fracture or dislocation Other findings:None. IMPRESSION: Mild osteoarthritis Dictated by: Leandro Owen MD 09/05/2019 15:10 Electronically signed by Leandro Owen MD in [place] 09/05/2019 15:10
== END ==
PROVIDERS: PCP Physician Assistant; Visit Provider Orthopaedic Surgery
DX: M25.562 Pain in left knee (principal)
CPT/HCPCS: 73564

== ENCOUNTER 2019-10-11 15:00 | Outpatient (RCR) | payer OTHER, SELFPAY ==
--- NOTE | 2019-09-07 15:00 | HMH.PTOPEV ---
PT Outpatient Evaluation Rehab PT Outpatient Evaluation Start: 09/07/19 12:58 Freq: Status: Active Protocol: Document 09/07/19 13:34 PDETHANIAX (Rec: 09/07/19 15:00 [email or web address] [id number]) Electronically Signed By Chris Murphy, PT 09/07/19 13:34 Outpatient Therapy Subjective History Subjective History Pt. is a 54 year old female who presents to outpatient PT clinic with complaints of acute on chronic and activity dependent L knee P! and LLE edema of insidious onset since 2019. Pt. reports having knee instability since 1989. Pt. currently also complains of her L knee giving out while she is walking around her [place] . Pt. reports MD precautions of donning knee orthotic for 1 month. Pt. RTMD 10/10/19. Pt. reports negative Ankle Brachial Index or DARIANA and negative doppler ultrasound tests. Pt. also denies having recent injections for current pathology. Recent diagnostic imaging positive for L knee mild OA. Current medications include 800mg Ibuprofen, Lisinopril, Sudafed, and Methocarbamol. PMH includes HTN, Hysterectomy, R shldr. arthroscopic sx, L elbow medical surgical reconstruction, and R hand carpal tunnel surgery. Chief Complaint Pain,Swelling,Weakness,Other Symptom Type Sharp,Stabbing,Numbness Symptoms Relieved By Rest/Positioning,Brace/Support ,OTC Meds Symptoms Aggravated By Standing,Bending/Stooping, Twisting,Walking Prior Functional Limitations None Current Functional Limitations Housework,Standing,Squatting, Recreation Activity,Walking, Stairs,Balance,Bending/ Stooping Symptom Description Activity Dependent Level of pain today (0-10) 0 Pain scale - at its best (0-10) 0 Pain scale - at its worst (0-10) 9 Hip/Knee Eval Gait Observation General Gait Pattern Observation Antalgic Gait,D
== END 2019-11-11 10:00 | disposition home or self-care (01) ==
LOC: PT.CARL 15:00
PROVIDERS: PCP Physician Assistant; Visit Provider Orthopaedic Surgery
DX: M17.12 Unilateral primary osteoarthritis, left knee (principal); M25.562 Pain in left knee
CPT/HCPCS: 97010; 97014; 97033; 97035; 97110; 97140; 97163; G0283

== ENCOUNTER → 2019-10-24 14:29 | Outpatient (POV) | payer OTHER, SELFPAY ==
[2019-10-24 15:10] VITALS: BP 127/75; PULSE 85; RESP 18; TEMP 36.6; O2SAT 99; BMI 31.3
--- NOTE | 2019-10-25 07:40 | P.CONS_ITS ---
[facility] Pain Management SOAP Note Subjective:: Patient is a pleasant 54-year-old white female who presents today for low back pain. Patient does extremely well with epidural injections getting both thoracic and lumbar epidural steroid injections. She gets 80% relief for up to 7 months. She is not on any anticoagulation therapy. Most of her pain is in her low back radiating into her hips. She rates it a 9 out of 10 she is currently on anti-inflammatories and Zanaflex. ROS General: no recent weight change, no fever, no sleep disturbances Respiratory: no cough, no shortness of air, no recurring pulmonary infections Cardiovascular/Peripheral Vascular: No chest pain, No palpitations, no edema, no shortness of breath. Gastrointestinal: no new onset incontinence, normal bowel movements reported Genitourinary: no new onset incontinence Musculoskeletal: Back pain, leg pain Psychiatric: normal mood/ affect, Neurological: [denies new onset weakness in extremities], [denies new onset balance issues] Objective:: Physical Exam General: Alert and oriented x3, no acute distress, pleasant and cooperative, [on room air] Lungs: Resps E/U, Symmetrical chest expansion, Eyes: PERRL Musculoskeletal: Flexion and extension of lumbar spine somewhat guarded secondary to pain, deep tendon reflexes normal, strength in upper and lower extremities [5/5], antalgic gait noted Neurological: speech clear, load dispatcher equal, no gross sensory deficits Assessment:: Degenerative disc disease lumbar spine with lumbar radiculopathy Plan:: We will schedule her for an L4-L5 lumbar epidural steroid injection given the efficacy of this in the past I believe it would benefit her. I will follow-up with her after her injection reassess her symptoms at that time. She is been instructed to call the office if she has any issues prior to her next appointment. Dr. Okeefe has reviewed this note and agrees with this plan of care. This note was dictated using voice recognition software and may contain errors or omissions [facility] History I have reviewed the patient's past medical history: Yes Medical History: Reports:: Diabetes Mellitus Type 2, Heart Murmur, Hypertension, Palpitations *Have you ever received a pneumonia vaccine?: Yes *Have you received a flu vaccine this season?: Yes Other Medical History: Reports: Arthritis Other Surgeries: Yes: Cholecystectomy, Hysterectomy-Partial Amputation: No Fractures: Yes - *Social History Smoking Status: Never smoker Alcohol Intake: current Alcohol Intake Frequency:: a few times a week Substance Use Type: denies use *Occupational Status:: other Housing: house *Travel in the last 8 weeks: None Family Hx:: Cancer, Diabetes
== END ==
PROVIDERS: PCP Physician Assistant; Visit Provider Clinical Nurse Specialist Family Health
DX: M51.16 Intervertebral disc disorders with radiculopathy, lumbar region (principal)
CPT/HCPCS: 99212

== ENCOUNTER 2019-11-04 11:35 | Day surgery (SDC) | payer OTHER, SELFPAY ==
[2019-11-04 11:54] VITALS: BP 157/80; PULSE 65; RESP 18; TEMP 36.8; O2SAT 100; BMI 31.3
--- NOTE | 2019-11-04 12:02 | P.PCN_ITS ---
- Procedure Date: 11/04/19 Time: 12:02 Anesthesiologist:: David Okeefe MD Complications:: None Pre-procedure Diagnosis:: Degenerative disc disease of lumbar spine with lumbar radiculopathy symptoms Post-procedure Diagnosis:: Same Indications for Procedure:: This patient is a pleasant 54-year-old white female who we have been treating for low back pain with lumbar radicular symptoms. She is done very well with epidural steroid injections in the past. Most of her pain today is in the left low back and left leg. We will do repeat lumbar epidural steroid injection today to see if this will help with her pain symptoms. Procedure Details:: Lumbar epidural steroid injection under fluoroscopy informed consent was obtained and the risk and benefits of the procedure was explained to the patient. The patient was taken to the procedure room. The patient was placed prone on the procedure table. The patient was prepped and draped in sterile fashion. C-arm fluoroscopy was used to view the lumbar spine. Skin and subcutaneous tissues were anesthetized using lidocaine. I placed an 18-gauge epidural needle and advanced into the L4-L5 interspace using fl uoroscopic guidance and [id number] to air. After confirmation of needle placement in the epidural space with dye I injected 2 mL of lidocaine 1.5% with Depo-Medrol 80 mg. Patient tolerated the procedure well with no complications. Plan and Disposition:: We will follow-up with her in 2 weeks. Will reevaluate symptoms at that time.
[2019-11-04 12:15] VITALS: BP 152/85; PULSE 61; RESP 18; O2SAT 100
== END 2019-11-04 12:15 | disposition home or self-care (01) ==
LOC: SC.PAINP 11:39
PROVIDERS: PCP Physician Assistant; Visit Provider Anesthesiology
DX: M51.16 Intervertebral disc disorders with radiculopathy, lumbar region (principal); I10 Essential (primary) hypertension; Z87.39 Personal history of other diseases of the musculoskeletal system and connective tissue; Z90.49 Acquired absence of other specified parts of digestive tract; Z90.711 Acquired absence of uterus with remaining cervical stump; Z79.899 Other long term (current) drug therapy
CPT/HCPCS: 62323; J1040; Q9966

== ENCOUNTER → 2019-11-28 10:34 | Outpatient (POV) | payer OTHER, SELFPAY ==
[2019-11-28 10:43] VITALS: BP 141/77; PULSE 75; RESP 18; O2SAT 98; BMI 29.7
--- NOTE | 2019-11-28 11:19 | HMH.PAINSOAP ---
[facility] Pain Management SOAP Note Subjective:: Patient is a pleasant 54-year-old white female who presents today for follow-up after lumbar epidural steroid injection. Patient states that her radicular symptoms have resolved since the injection however she is having a lot of focal back pain. Patient has difficulty with bending along with rotational movement. Patient was positive facet loading lumbar spine bilaterally. She rates her pain today a 7 out of 10. She is not on any anticoagulation therapy we discussed medial branch block/facet joint injection potential neurotomy in the future. ROS General: no recent weight change, no fever, no sleep disturbances Respiratory: no cough, no shortness of air, no recurring pulmonary infections Cardiovascular/Peripheral Vascular: No chest pain, No palpitations, no edema, no shortness of breath. Gastrointestinal: no new onset incontinence, normal bowel movements reported Genitourinary: no new onset incontinence Musculoskeletal: Back pain Psychiatric: normal mood/ affect Neurological: [denies new onset weakness in extremities], [denies new onset balance issues] Objective:: Physical Exam General: Alert and oriented x3, no acute distress, pleasant and cooperative, [on room air] Lungs: Resps E/U, Symmetrical chest expansion, Eyes: PERRL Musculoskeletal: Flexion and extension of lumbar spine somewhat guarded secondary to pain, deep tendon reflexes normal, strength in upper and lower extremities [5/5], antalgic gait noted Neurological: speech clear, gastroenterology teacher equal, no gross sensory deficits Assessment:: degenerative disc disease lumbar spine lumbar facet arthropathy and lumbar spondylosis Plan:: We will the patient for L3-L4 L4-L5 L5-S1 bilateral medial branch block. Given her symptomology I do believe this would be beneficial. I will follow-up with her after this reassess her symptoms at that time she has been instructed to call the office if she has any issues prior to her next appointment. Dr. Okeefe has reviewed this note and agrees with this plan of care. This note was dictated using voice recognition software and may contain errors or omissions [facility] History I have reviewed the patient's past medical history: Yes Medical History: Reports:: Diabetes Mellitus Type 2, Heart Murmur, Hypertension, Palpitations Denies:: Cancer, MRSA, Seizures *Have you ever received a pneumonia vaccine?: Yes *Have you received a flu vaccine this season?: Yes Other Medical History: Reports: Arthritis Other Surgeries: Yes: Cholecystectomy, Hysterectomy-Partial Amputation: No Fractures: Yes - *Social History Smoking Status: Never smoker Alcohol Intake: current Alcohol Intake Frequency:: holidays/special occasions only Substance Use Type: denies use *Occupational Status:: other Housing: house *Travel in the last 8 weeks: None Family Hx:: Cancer, Diabetes
== END ==
PROVIDERS: PCP Physician Assistant; Visit Provider Clinical Nurse Specialist Family Health
DX: M51.36 Other intervertebral disc degeneration, lumbar region (principal); M47.816 Spondylosis without myelopathy or radiculopathy, lumbar region
CPT/HCPCS: 99212

== ENCOUNTER 2019-12-09 14:35 | Day surgery (SDC) | payer OTHER, SELFPAY ==
[2019-12-09 14:44] VITALS: BP 139/72; PULSE 81; RESP 18; TEMP 36.7; O2SAT 100; BMI 31.3
--- NOTE | 2019-12-09 15:01 | HMH.PMPROC ---
- Procedure Date: 12/09/19 Time: 15:01 Anesthesiologist:: David Okeefe MD Complications:: None Pre-procedure Diagnosis:: Degenerative disc disease of lumbar spine with lumbar radiculopathy symptoms and facet arthropathy with lumbar spondylosis Post-procedure Diagnosis:: Same Indications for Procedure:: This patient is a pleasant 54-year-old white female who we are treating for low back pain with lumbar spondylosis and facet arthropathy of lumbar spine. She is done well with her previous lumbar epidural steroid injection. Most of her pain now is facet agenic. She has increased pain with extension and twisting. We will do bilateral lumbar facet joint injection/medial branch blocks of L3-L4, L4-5 and L5-S1 under fluoroscopy. Procedure Details:: Lumbar medial branch block Informed consent was obtained and the risks and benefits of the procedure was explained to the patient. The back was prepped using ChloraPrep. The skin and subcutaneous tissues were anesthetized using lidocaine. I placed 22-gauge spinal needles into the facet joint/medial branches of L3-L4, L4-L5 and L5-S1 bilaterally. Needle placement was confirmed with dye. After this we injected 3 mL bupivacaine 0.25% and Depo-Medrol 13 mg into each facet joint/medial branch of L3-L4, L5 and L5-S1 bilaterally. We used a total of 80 mg Depo-Medrol for all 3 levels bilaterally. The patient tolerated the procedure well with no complications. Plan and Disposition:: We will follow-up with her in 2 weeks. Will reevaluate symptoms at that time. If successful we may proceed to radiofrequency ablation of the same levels of L3-L4, L4-5 and L5-S1 bilaterally.
[2019-12-09 15:05] VITALS: BP 142/88; PULSE 85; RESP 18; O2SAT 98
[2019-12-09 15:19] VITALS: BP 130/80; PULSE 76; RESP 18; O2SAT 100
== END 2019-12-09 15:20 | disposition home or self-care (01) ==
LOC: SC.PAINP 14:36
PROVIDERS: PCP Physician Assistant; Visit Provider Anesthesiology
DX: M51.16 Intervertebral disc disorders with radiculopathy, lumbar region (principal); M47.896 Other spondylosis, lumbar region; M12.88 Other specific arthropathies, not elsewhere classified, other specified site; I10 Essential (primary) hypertension; F41.9 Anxiety disorder, unspecified; F32.9 Major depressive disorder, single episode, unspecified; Z90.711 Acquired absence of uterus with remaining cervical stump; Z90.49 Acquired absence of other specified parts of digestive tract; Z79.899 Other long term (current) drug therapy; E11.9 Type 2 diabetes mellitus without complications
CPT/HCPCS: 64493; 64494; 64495; J1030; Q9966

== ENCOUNTER → 2019-12-29 14:07 | Outpatient (POV) | payer OTHER, SELFPAY ==
[2019-12-29 14:29] VITALS: BP 142/77; PULSE 62; RESP 18; O2SAT 98; BMI 30.5
--- NOTE | 2019-12-29 15:09 | HMH.PAINSOAP ---
[facility] Pain Management SOAP Note Subjective:: Patient is a pleasant 54-year-old white female who presents today for follow-up after a medial branch block/facet joint injections. She is being treated for low back pain with lumbar radiculopathy symptoms and facet arthropathy with lumbar spondylosis. Patient says that she did not get any relief following the medial branch blocks. She feels that she actually had worsening pain after the injection. She does say that she did get more relief from the lumbar epidural steroid injection in the past. Patient says that she has pain starting at her neck radiating into her low back causing numbness and tingling into her bilateral lower extremities. She says that she developed an injury in the many years ago to her L3-L4 L4-L5 areas. She says since that injury she is continued to have severe low back pain. She does say approximately 6 years ago she underwent an MRI that showed spinal stenosis with bulging disks. She has not had any recent imaging. Patient would like to undergo an MRI of her lumbar spine to determine if she has any this. Patient has had physical therapy and does continue with a home stretching program. She has also anti-inflammatories in the past. She has tried ice and heat therapies with no relief. The injections have given her relief with the epidurals, however, her relief is only temporary. Patient's pain is worse with prolonged sitting as well as prolonged standing and walking. Review of Systems General: No recent weight changes, no fever, no sleep disturbances Respiratory: No cough, no shortness of air, no recurring pulmonary infections Cardiovascular/peripheral vascular: No chest pain, no palpitations, no edema, no shortness of breath Gastrointestinal: No new onset incontinence, normal bowel movements reported Genitourinary: No new onset incontinence Musculoskeletal: Low back pain, mid back pain, neck pain, bilateral lower extremity pain with numbness and tingling Psychiatric: Normal mood/affect Neurological: [Denies weakness in extremities], [denies balance issues] Objective:: Physical exam General: Alert and oriented x3, no acute distress, pleasant and cooperative, [on room air] Lungs: Respirations even and unlabored, symmetrical chest expansion Eyes: PERRL Musculoskeletal: Flexion and extension of cervical and lumbar spine somewhat guarded secondary to pain, deep tendon reflexes normal, strength in upper and lower extremities [5/5], [abnormal gait noted] Neurological: Speech clear, wharf helper equal, no gross sensory deficit Assessment:: Degenerative disc disease lumbar spine with lumbar radiculopathy symptoms, neck pain, mid back pain Plan:: Patient has not had any imaging of her spine. She says she thinks the last MRI she has is from 6 years ago. We will send her for MRI of her cervical, thoracic, and lumbar spine. We will see her back in the clinic after her imaging to discuss a further plan of care. She and I did discuss possible implanted devices today. She has been instructed to contact clinic if she has any concerns before next appointment. The patient and I specifically discussed risk factors for COVID19. These risks include, but are not limited to age greater than 60, heart or lung disease, diabetes, immunosuppression, and travel. We also discussed NSAIDs may worsen COVID19 infection or symptoms. Patient should not use NSAIDs to treat COVID19 signs or symptoms. Patient was also informed that any type of corticosteroid of any form (oral or injection) will decrease the patient's immune system response and may increase the likelihood of COVID19 infection [address] symptoms[address]. Okeefe has reviewed this note and agrees with this plan of care. This note was dictated using voice recognition software and make contain errors or omissions. [facility] History I have reviewed the patient's past medical history: Yes Medical History: Reports:: Diabetes Mellitus Type 2, Hea
== END ==
PROVIDERS: PCP Physician Assistant; Visit Provider Clinical Nurse Specialist Family Health
DX: M51.16 Intervertebral disc disorders with radiculopathy, lumbar region (principal); M54.2 Cervicalgia; M54.6 Pain in thoracic spine
CPT/HCPCS: 99212

== ENCOUNTER → 2020-01-05 14:24 | Outpatient (CLI) | payer OTHER, SELFPAY ==
--- NOTE | 2020-01-05 14:29 | MR_ITS ---
PROCEDURE: MR CERVICAL SPINE WO CON CLINICAL INDICATION: NECK AND BACK PAIN LT sided neck pain xyrs. No prior. COMPARISON: No exams were available for comparison TECHNIQUE: Standard multiplanar multiecho sequences are performed without contrast. 3-D MIP and myelographic images are also rendered and reviewed FINDINGS: The craniocervical junction has an unremarkable appearance. C2-C3: Unremarkable. C3-C4: There is slight decrease in the disc space suggesting mild degenerative disc disease. C4-C5: Slight decrease in the disc space. There is a small broad-based central/left paracentral disc protrusion with minimal bulging disc. There is canal stenosis at 10 mm. The disc does abut the anterior aspect of the cord with only minimal flattening. C5-C6: Degenerative disc disease with bulging disc and ridging of the endplates which is eccentric toward the left causing canal stenosis of 10 mm, left lateral recess narrowing, and foraminal narrowing. There is minimal flattening of the cord anteriorly. C6-C7: Borderline narrowing of the canal at 10 mm with minimal bulging disc. C7-T1: Unremarkable. At T2-T3, there is a minimal bulging disc. IMPRESSION: 1. C4-C5: Slight decrease in the disc space. There is a small broad-based central/left paracentral disc protrusion with minimal bulging disc. There is canal stenosis at 10 mm. The disc does abut the anterior aspect of the cord with only minimal flattening. 2. C5-C6: Degenerative disc disease with bulging disc and ridging of the endplates which is eccentric toward the left causing canal stenosis of 10 mm, left lateral recess narrowing, and foraminal narrowing. There is minimal flattening of the cord anteriorly. 3. C6-C7: Borderline narrowing of the canal at 10 mm with minimal bulging disc. Dictated by: Leandro Owen MD 01/06/2020 11:21 Leandro Owen MD in [place] 01/06/2020 11:21
--- NOTE | 2020-01-05 14:29 | MR_ITS ---
PROCEDURE: MR THORACIC SPINE WO CON CLINICAL INDICATION: NECK AND BACK PAIN RT arm pain. RT mid back pain. No prior. COMPARISON: No exams were available for comparison TECHNIQUE: Routine multiplanar multi echo sequences are performed without gadolinium enhancement. FINDINGS: There is normal alignment. No acute fracture or dislocation is evident. There is mild multilevel thoracic spondylosis with decrease in the disc space and disc desiccation from T2 to T10. T2-T3: Minimal right paracentral disc protrusion with mild right lateral recess narrowing. There is a T1 and T2 hyperintense lesion in the T4 vertebral body which measures 8 mm and may be due to a hemangioma. There is minimal ridging of the posterior endplate on the left at T4-T5 with minimal left lateral recess narrowing. T7-T8 degenerative disc disease T8-T9 degenerative disc disease No extruded herniated disc or canal stenosis is evident. There is mild bulging disc at T11-T12 and T12-L1. IMPRESSION: 1. Multilevel thoracic spondylosis as detailed above. 2. No acute fracture or dislocation Dictated by: Leandro Owen MD 01/06/2020 11:41 Leandro Owen MD in [facility] 01/06/2020 11:41
== END ==
PROVIDERS: PCP Physician Assistant; Visit Provider Clinical Nurse Specialist Family Health
DX: M54.2 Cervicalgia (principal); M54.6 Pain in thoracic spine; M54.5 Low back pain
CPT/HCPCS: 72141; 72146; 76376

== ENCOUNTER → 2020-01-09 13:02 | Outpatient (CLI) | payer OTHER, SELFPAY ==
--- NOTE | 2020-01-09 13:07 | MR_ITS ---
PROCEDURE: MR LUMBAR SPINE WO CON CLINICAL INDICATION: BACK PAIN LBP. PAIN AND NUMBNESS IN RT LEG. [id number]. NO PRIOR. COMPARISON: MR MR THORACIC SPINE WO CON from 01/05/2020 MR MR CERVICAL SPINE WO CON from 01/05/2020 TECHNIQUE: Standard multiplanar multiecho sequences are performed without contrast. 3-D MIP and myelographic images are also rendered and reviewed FINDINGS: There is normal alignment. The spinal cord ends at the L2 level. There are degenerative changes in the lower thoracic spine with mild bulging disc at T11-T12 and T12-L1. L1-L2: Unremarkable. L2-L3: Minimal bulging disc with a small annular fissure. L3-L4: Mild bulging disc with small annular fissure. Facet ligamentum hypertrophy is noted with moderate right lateral recess narrowing. L4-5: Mild bulging disc with small annular fissure with facet ligamentum hypertrophy with mild bilateral lateral recess narrowing. There is borderline narrowing of the canal at 11 mm. L5-S1: Minimal bulging disc slightly eccentric toward the left with facet and ligamentum hypertrophy with mild left lateral recess and foraminal narrowing. There is borderline narrowing of the canal at 11 mm. No extruded herniated disc. IMPRESSION: 1. L2-L3: Minimal bulging disc with a small annular fissure. 2. L3-L4: Mild bulging disc with small annular fissure. Facet ligamentum hypertrophy is noted with moderate right lateral recess narrowing. 3. L4-5: Mild bulging disc with small annular fissure with facet ligamentum hypertrophy with mild bilateral lateral recess narrowing. There is borderline narrowing of the canal at 11 mm. 4. L5-S1: Minimal bulging disc slightly eccentric toward the left with facet and ligamentum hypertrophy with mild left lateral recess and foraminal narrowing. There is borderline narrowing of the canal at 11 mm. 5. No extruded herniated disc Dictated by: Leandro Owen MD 01/10/2020 13:17 Leandro Owen MD in [facility] 01/10/2020 13:17
== END ==
PROVIDERS: PCP Physician Assistant; Visit Provider Clinical Nurse Specialist Family Health
DX: M54.2 Cervicalgia (principal); M54.6 Pain in thoracic spine; M54.5 Low back pain
CPT/HCPCS: 72148; 76376

== ENCOUNTER → 2020-01-16 11:07 | Outpatient (POV) | payer OTHER, SELFPAY ==
[2020-01-16 12:00] VITALS: BP 153/90; PULSE 71; RESP 18; O2SAT 98; BMI 30.5
--- NOTE | 2020-01-16 13:07 | HMH.PAINSOAP ---
[facility] Pain Management SOAP Note Subjective:: Patient is a pleasant 54-year-old white female who presents today today for follow-up after review of her lumbar MRI. Patient does have some worsening pathology. Patient rates her pain today a 9 out of 10. She would like to be as conservative as possible at this time. We did discuss options including surgical consultation and potential implantation of neuromodulation devices in the future. But at this time I do believe management through injections and medications is possible. Patient would like to move forward with this. Most of her pain is in her back radiating down into her legs. ROS General: no recent weight change, no fever, no sleep disturbances Respiratory: no cough, no shortness of air, no recurring pulmonary infections Cardiovascular/Peripheral Vascular: No chest pain, No palpitations, no edema, no shortness of breath. Gastrointestinal: no new onset incontinence, normal bowel movements reported Genitourinary: no new onset incontinence Musculoskeletal: Back pain, leg pain Psychiatric: normal mood/ affect Neurological: [denies new onset weakness in extremities], [denies new onset balance issues] Objective:: Physical Exam General: Alert and oriented x3, no acute distress, pleasant and cooperative, [on room air] Lungs: Resps E/U, Symmetrical chest expansion, Eyes: PERRL Musculoskeletal: Flexion and extension of lumbar spine somewhat guarded secondary to pain, deep tendon reflexes normal, strength in upper and lower extremities [5/5], [abnormal gait noted] Neurological: speech clear, industrial custodian equal, no gross sensory deficits Assessment:: Degenerative disc disease lumbar spine lumbar radiculopathy Plan:: Start the patient on gabapentin 100 mg 1 p.o. 3 times daily. We are also going to set her up for an L4-L5 lumbar epidural steroid injection. She is currently on an anti-inflammatory medication. Patient not on anticoagulation therapy. I will follow-up with her after her injection reassess her symptoms at that time she has been instructed to call the office if she has any issues. Dr. Okeefe has reviewed this note and agrees with this plan of care. This note was dictated using voice recognition software and may contain errors or omissions [facility] History I have reviewed the patient's past medical history: Yes Medical History: Reports:: Diabetes Mellitus Type 2, Heart Murmur, Hypertension, Palpitations Denies:: Cancer, MRSA, Seizures *Have you ever received a pneumonia vaccine?: Yes *Have you received a flu vaccine this season?: Yes Other Medical History: Reports: Arthritis Other Surgeries: Yes: Cholecystectomy, Hysterectomy-Partial Amputation: No Fractures: Yes - *Social History Smoking Status: Never smoker Alcohol Intake: current Alcohol Intake Frequency:: holidays/special occasions only Substance Use Type: denies use *Occupational Status:: other Housing: house *Travel in the last 8 weeks: None Family Hx:: Cancer, Diabetes
--- NOTE | 2020-01-27 15:09 | PC.NURSE ---
01/26/20-pt given direction to increase Gabapentin to 200-300mg qhs per provider order. understanding verbalized
== END ==
PROVIDERS: PCP Physician Assistant; Visit Provider Clinical Nurse Specialist Family Health
DX: M51.16 Intervertebral disc disorders with radiculopathy, lumbar region (principal)
CPT/HCPCS: 99212

== ENCOUNTER → 2020-03-08 14:19 | Outpatient (POV) | payer OTHER, SELFPAY ==
[2020-03-08 14:34] VITALS: BP 138/88; PULSE 88; RESP 18; O2SAT 98; BMI 31.3
--- NOTE | 2020-03-08 15:02 | HMH.PAINSOAP ---
[facility] Pain Management SOAP Note Subjective:: Patient is a pleasant 54-year-old white female who presents today for follow-up. She is being treated for low back pain with lumbar radiculopathy symptoms. Patient was scheduled for lumbar epidural steroid injection L4-L5. She did cancel the injection because the shooting pains down her right leg have subsided. She was also prescribed gabapentin for which she is no longer taking. Patient says that her pain is primarily around her beltline into her bilateral buttocks and hips. She rates pain a 6 out of 10. Her pain is worse with standing or walking and improves with sitting. She has tenderness over her bilateral SI joints as well today. Review of Systems General: No recent weight changes, no fever, no sleep disturbances Respiratory: No cough, no shortness of air, no recurring pulmonary infections Cardiovascular/peripheral vascular: No chest pain, no palpitations, no edema, no shortness of breath Gastrointestinal: No new onset incontinence, normal bowel movements reported Genitourinary: No new onset incontinence Musculoskeletal: Low back pain, bilateral buttock pain, bilateral hip pain Psychiatric: Normal mood/affect Neurological: [Denies weakness in extremities], [denies balance issues] Objective:: Physical exam General: Alert and oriented x3, no acute distress, pleasant and cooperative, [on room air] Lungs: Respirations even and unlabored, symmetrical chest expansion Eyes: PERRL Musculoskeletal: Flexion and extension of lumbar spine somewhat guarded secondary to pain, deep tendon reflexes normal, strength in upper and lower extremities [5/5], [abnormal gait noted], positive Benton's test, positive distraction test, positive compression test Neurological: Speech clear, net repairer equal, no gross sensory deficit Assessment:: Sacroiliitis bilateral Plan:: We will schedule patient for bilateral SI joint injections. We will plan to see her back in the clinic after injections reassess her symptoms. The patient and I specifically discussed risk factors for COVID19. These risks include, but are not limited to age greater than 60, heart or lung disease, diabetes, immunosuppression, and travel. We also discussed NSAIDs may worsen COVID19 infection or symptoms. Patient should not use NSAIDs to treat COVID19 signs or symptoms. Patient was also informed that any type of corticosteroid of any form (oral or injection) will decrease the patient's immune system response and may increase the likelihood of COVID19 infection and symptoms[address]. Okeefe has reviewed this note and agrees with this plan of care. This note was dictated using voice recognition software and make contain errors or omissions. [facility] History I have reviewed the patient's past medical history: Yes Medical History: Reports:: Diabetes Mellitus Type 2, Heart Murmur, Hypertension, Palpitations Denies:: Cancer, MRSA, Seizures *Have you ever received a pneumonia vaccine?: Yes *Have you received a flu vaccine this season?: Yes Other Medical History: Reports: Arthritis Other Surgeries: Yes: Cholecystectomy, Hysterectomy-Partial Amputation: No Fractures: Yes - *Social History Smoking Status: Never smoker Alcohol Intake: current Alcohol Intake Frequency:: holidays/special occasions only Substance Use Type: denies use *Occupational Status:: other Housing: house *Travel in the last 8 weeks: None Family Hx:: Cancer, Diabetes
== END ==
PROVIDERS: PCP Physician Assistant; Visit Provider Clinical Nurse Specialist Family Health
DX: M46.1 Sacroiliitis, not elsewhere classified (principal)
CPT/HCPCS: 99212

== ENCOUNTER 2020-03-16 09:59 | Day surgery (SDC) | payer OTHER, SELFPAY ==
[2020-03-16 10:37] VITALS: BP 142/78; PULSE 73; RESP 18; TEMP 37.1; O2SAT 100; BMI 29.7
[2020-03-16 11:41] VITALS: BP 122/74; PULSE 85
[2020-03-16 11:42] VITALS: BP 128/89; PULSE 85; RESP 18; TEMP 36.8; O2SAT 98
--- NOTE | 2020-03-16 11:46 | P.PCN_ITS ---
- Procedure Date: 03/16/20 Time: 11:46 Anesthesiologist:: David Okeefe MD Complications:: None Pre-procedure Diagnosis:: Sacroiliitis Post-procedure Diagnosis:: Same Indications for Procedure:: Patient is a pleasant 54-year-old white female who we are seeing for low back pain and lumbar radiculopathy symptoms. Most of her pain is in both hips. She is tender over both SI joints. She has a positive Benton's test bilaterally. She is positive Marisela test bilaterally. She is positive SI joint compression test bilaterally. We will do bilateral SI joint injections under fluoroscopy t sergo to see if this helps with her pain symptoms. Procedure Details:: B/L SI joint injection under fluoroscopy Informed consent was obtained and the risks and benefits of the procedure was explained to the patient. The patient was taken to the procedure room and placed prone on the procedure table. The patient was prepped using ChloraPrep. The skin and subcutaneous tissues overlying the SI joints were anesthetized using lidocaine. I placed a 22-gauge needle first in the left SI joint and second in the right SI joint. Needle placement was confirmed with dye. After this we injected 5 mL bupivacaine 0.25% and Depo-Medrol 40 mg into each SI joint. Patient tolerated the procedure well with no complication. Plan and Disposition:: We will follow-up with her and 2 weeks. Will reevaluate symptoms at that time.
[2020-03-16 11:50] VITALS: BP 148/79; PULSE 79; RESP 20; O2SAT 100
== END 2020-03-16 11:50 | disposition home or self-care (01) ==
LOC: SC.PAINP 10:00
PROVIDERS: PCP Physician Assistant; Visit Provider Anesthesiology
DX: M46.1 Sacroiliitis, not elsewhere classified (principal); I10 Essential (primary) hypertension; G56.00 Carpal tunnel syndrome, unspecified upper limb; Z90.49 Acquired absence of other specified parts of digestive tract; Z90.711 Acquired absence of uterus with remaining cervical stump; Z88.6 Allergy status to analgesic agent; Z79.899 Other long term (current) drug therapy
CPT/HCPCS: 27096; G0260; J1030; Q9966

== ENCOUNTER → 2020-04-02 08:16 | Outpatient (POV) | payer OTHER, SELFPAY ==
[2020-04-02 08:28] VITALS: BP 133/85; PULSE 76; RESP 18; TEMP 36; O2SAT 99; BMI 29.7
--- NOTE | 2020-04-02 08:47 | HMH.PAINSOAP ---
[facility] Pain Management SOAP Note Subjective:: Patient is a pleasant 54-year-old white female who presents today for follow-up after bilateral SI joint injection. Patient got over 90% relief of her symptomology. Her pain is beginning to return. She would like to repeat the injection. She may be a candidate for an SI joint stabilization. She has positive SI joint compression test Benton's test Marisela test and distraction test bilaterally. Patient's pain pattern is along her SI joint and radiating into her groin bilaterally. She is currently on anti-inflammatories and continues this daily. She is also continuing a daily stretching program. She rates her pain today a 4 out of 10. ROS General: no recent weight change, no fever, no sleep disturbances Respiratory: no cough, no shortness of air, no recurring pulmonary infections Cardiovascular/Peripheral Vascular: No chest pain, No palpitations, no edema, no shortness of breath. Gastrointestinal: no new onset incontinence, normal bowel movements reported Genitourinary: no new onset incontinence Musculoskeletal: Bilateral SI joint pain Psychiatric: normal mood/ affect Neurological: [denies new onset weakness in extremities], [denies new onset balance issues] Objective:: Physical Exam General: Alert and oriented x3, no acute distress, pleasant and cooperative, [on room air] Lungs: Resps E/U, Symmetrical chest expansion, Eyes: PERRL Musculoskeletal: Flexion and extension of lumbar spine somewhat guarded secondary to pain, deep tendon reflexes normal, strength in upper and lower extremities [5/5], slightly antalgic gait noted Neurological: speech clear, car rental agent 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 Patient potentially could be a candidate for an SI joint stabilization. I will follow-up with her after her injection reassess her symptoms at that time she was instructed to call the office if she has any issues prior to her her next appointment. Dr. Okeefe has reviewed this note and agrees with this plan of care. This note was dictated using voice recognition software and may contain errors or omissions [facility] History I have reviewed the patient's past medical history: Yes Medical History: Reports:: Heart Murmur, Hypertension, Palpitations Denies:: Cancer, Diabetes Mellitus Type 1, Diabetes Mellitus Type 2, MRSA, Seizures *Have you ever received a pneumonia vaccine?: No *Have you received a flu vaccine this season?: No Other Medical History: Reports: Arthritis. Denies: Blood Transfusion Reaction Other Surgeries: Yes: Cholecystectomy, Hysterectomy-Partial Amputation: No Fractures: Yes - *Social History Smoking Status: Never smoker Alcohol Intake: never Alcohol Intake Frequency:: holidays/special occasions only Substance Use Type: denies use *Occupational Status:: employed Housing: house Household Members: spouse *Travel in the last 8 weeks: None Family Hx:: Cancer, Diabetes
== END ==
PROVIDERS: PCP Physician Assistant; Visit Provider Clinical Nurse Specialist Family Health
DX: M46.1 Sacroiliitis, not elsewhere classified (principal); Z09 Encounter for follow-up examination after completed treatment for conditions other than malignant neoplasm
CPT/HCPCS: 99212

== ENCOUNTER 2020-04-06 10:07 | Day surgery (SDC) | payer OTHER, SELFPAY ==
[2020-04-06 10:39] VITALS: BP 135/92; PULSE 75; RESP 18; TEMP 37.1; O2SAT 99; BMI 29.7
[2020-04-06 11:11] VITALS: BP 130/74; PULSE 74; RESP 18; O2SAT 98
[2020-04-06 11:12] VITALS: BP 133/74; PULSE 88; RESP 18; O2SAT 98
--- NOTE | 2020-04-06 11:15 | HMH.PMPROC ---
- Procedure Date: 04/06/20 Time: 11:15 Anesthesiologist:: David Okeefe MD Complications:: None Pre-procedure Diagnosis:: Sacroiliitis Post-procedure Diagnosis:: Same Indications for Procedure:: Patient is a pleasant 54-year-old white female who we have been treating for bilateral sacroiliitis. She had 80 to 90% relief in her symptomology for approximately a week after her last round of SI joint injections. Her pain is just now starting to return. We will do repeat bilateral SI joint injections today to help her with her pain symptoms. Again if these are not long-lasting she may be a candidate for SI joint stabilization. Procedure Details:: B/L SI joint injection under fluoroscopy Informed consent was obtained and the risks and benefits of the procedure was explained to the patient. The patient was taken to the procedure room and placed prone on the procedure table. The patient was prepped using ChloraPrep. The skin and subcutaneous tissues overlying the SI joints were anesthetized using lidocaine. I placed a 22-gauge needle first in the left SI joint and second in the right SI joint. Needle placement was confirmed with dye. After this we injected 5 mL bupivacaine 0.25% and Depo-Medrol 40 mg into each SI joint. Patient tolerated the procedure well with no complication. Plan and Disposition:: We will follow-up with her in 2 weeks. Will reevaluate symptoms at that time. We will plan on SI joint stabilization in the future if needed.
[2020-04-06 11:25] VITALS: BP 148/89; PULSE 68; O2SAT 99
== END 2020-04-06 11:25 | disposition home or self-care (01) ==
LOC: SC.PAINP 10:07
PROVIDERS: PCP Physician Assistant; Visit Provider Anesthesiology
DX: M46.1 Sacroiliitis, not elsewhere classified (principal); I10 Essential (primary) hypertension; E11.9 Type 2 diabetes mellitus without complications
CPT/HCPCS: 27096; G0260; J1030; Q9966

== ENCOUNTER → 2020-05-03 13:45 | Outpatient (POV) | payer OTHER, SELFPAY ==
--- NOTE | 2020-05-03 14:24 | P.CONS_ITS ---
[facility] Pain Management SOAP Note Subjective:: Patient is a pleasant 54-year-old white female who we are treating for chronic sacroiliitis. Patient rates her pain a 4 out of 10. Patient gets 80 to 90% relief of her symptomology for approximately 1 week after her SI joint injection she has had 2 rounds. She is interested in SI joint stabilization. I do believe she would benefit from this. She is worst pain is on her right side. Patient has a positive Marisela test SI joint compression test Benton's test and distraction test on that side. She is failed over 6 months of conservative therapy including medications, anti-inflammatories, physical therapy, injection therapy. ROS General: no recent weight change, no fever, no sleep disturbances Respiratory: no cough, no shortness of air, no recurring pulmonary infections Cardiovascular/Peripheral Vascular: No chest pain, No palpitations, no edema, no shortness of breath. Gastrointestinal: no new onset incontinence, normal bowel movements reported Genitourinary: no new onset incontinence Musculoskeletal: SI joint pain Psychiatric: normal mood/ affect Neurological: [denies new onset weakness in extremities], [denies new onset balance issues] Objective:: Physical Exam General: Alert and oriented x3, no acute distress, pleasant and cooperative, [on room air] Lungs: Resps E/U, Symmetrical chest expansion, Eyes: PERRL Musculoskeletal: Flexion and extension of lumbar spine somewhat guarded secondary to pain, deep tendon reflexes normal, strength in upper and lower extremities [5/5], [abnormal gait noted] Neurological: speech clear, service writer equal, no gross sensory deficits Assessment:: Chronic sacroiliitis Plan:: Move forward with a right SI joint stabilization. Given the success of her diagnostic SI joint injections I do believe that this would benefit her. I will follow-up with her after this reassess her symptoms at that time she has been instructed to call the office if she has any issues prior to her next appointment. Dr. Okeefe has reviewed this note and agrees with this plan of care. This note was dictated using voice recognition software and may contain errors or omissions [facility] History I have reviewed the patient's past medical history: Yes Medical History: Reports:: Diabetes Mellitus Type 2, Heart Murmur, Hypertension, Palpitations Denies:: Cancer, Diabetes Mellitus Type 1, MRSA, Seizures *Have you ever received a pneumonia vaccine?: No *Have you received a flu vaccine this season?: No Other Medical History: Reports: Arthritis. Denies: Blood Transfusion Reaction Other Surgeries: Yes: Cholecystectomy, Hysterectomy-Partial Amputation: No Fractures: Yes - *Social History Smoking Status: Former smoker Alcohol Intake: current Alcohol Intake Frequency:: holidays/special occasions only Substance Use Type: denies use *Occupational Status:: employed Housing: house Household Members: spouse *Travel in the last 8 weeks: None Family Hx:: Cancer, Diabetes
[2020-05-03 15:17] VITALS: BP 128/85; PULSE 74; RESP 18; O2SAT 98; BMI 31.3
== END ==
PROVIDERS: PCP Physician Assistant; Visit Provider Clinical Nurse Specialist Family Health
DX: M46.1 Sacroiliitis, not elsewhere classified (principal)
CPT/HCPCS: 99212

== ENCOUNTER → 2020-05-03 18:10 | Outpatient (CLI) | payer OTHER, SELFPAY ==
[2020-05-03 19:25] LABS: Basophils % 0.6 % (0.1-2.0); Eosinophils # 0.1 K/mm3 (0.0-0.4); Eosinophils % 1.7 % (0.1-12.0); Hematocrit 44.6 % (37.0-47.0); Hemoglobin 14.1 g/dL (12.2-16.2); Lymphocytes # 1.7 K/mm3 (0.7-4.5); Lymphocytes % 30.4 % (10-50); Mean Corpuscular HGB Conc 31.6 g/dL (31.8-35.4); Mean Corpuscular Hemoglobin 30.4 pg (27.0-31.2); Mean Corpuscular Volume 96.5 fl (81-99); Mean Platelet Volume 9.1 fl (7.4-10.4); Monocytes # 0.2 K/mm3 (0.1-1.0); Monocytes % 3.8 % (1.7-9.3); Neutrophils # 3.5 K/mm3 (1.8-7.8); Neutrophils % 63.5 % (37.0-80.0); Platelet Count 245 K/mm3 (142-424); Red Blood Count 4.62 M/mm3 (4.20-5.40); Red Cell Distribution Width 12.3 % (11.5-17.5); White Blood Count 5.6 K/mm3 (4.8-10.8)
[2020-05-03 19:30] LABS: Alanine Aminotransferase 21 U/L (12-78); Albumin Level 4.5 g/dl (3.5-5.0); Albumin/Globulin Ratio 1.9 (1.1-1.8); Alkaline Phosphatase 68 U/L (38-126); Anion Gap 13.1 mEq/L (5-15); Aspartate Amino Transferase 31 U/L (14-36); Bilirubin,Total 0.5 mg/dl (0.2-1.3); Blood Urea Nitrogen 14 mg/dl (7-17); Carbon Dioxide 27 mmol/L (22.0-30.0); Chloride 102 mmol/L (98-107); Chol/HDL Ratio 3.1 (1-3.5); Cholesterol 229 mg/dl (140-200); Estimated Glomerular Filt Rate 88 ml/min (>60); GFR (African American) 106 ML/MIN (>60); Globulin 2.4 g/dL (1.3-3.2); Glucose 139 mg/dl (74-100); HDL Cholesterol 75 mg/dl (40-60); Potassium 5.1 mmoL/L (3.5-5.1); Sodium 137 mmol/L (136-145); Total Protein,Serum 6.9 g/dl (6.3-8.2); Triglycerides 136 mg/dl (30-150); VLDL Cholesterol 27 mg/dL (0-40)
[2020-05-03 19:41] LABS: Direct LDL Cholesterol 119.92 mg/dL (100-129)
[2020-05-03 19:46] LABS: Free T4 (Free Thyroxine) 1.36 ng/dl (0.78-2.19)
[2020-05-03 19:47] LABS: 25-OH Vitamin D, Total 35.7 ng/mL (30-100)
[2020-05-03 20:01] LABS: Thyroid Stimulating Hormone 1.79 uIU/mL (0.465-4.68)
[2020-05-03 21:01] LABS: Hemoglobin A1C 5.5 % (4.0-6.0)
== END ==
PROVIDERS: Visit Provider Physician Assistant
DX: E11.9 Type 2 diabetes mellitus without complications (principal); M51.34 Other intervertebral disc degeneration, thoracic region; R06.00 Dyspnea, unspecified
CPT/HCPCS: 80053; 80061; 82306; 83036; 84439; 84443; 85025

== ENCOUNTER → 2020-05-14 16:03 | Outpatient (CLI) | payer OTHER, SELFPAY ==
--- NOTE | 2020-05-14 16:09 | MM_ITS ---
PROCEDURE: MM DIG SCREENING MAMM BI W/CAD Referring Doctor: Sandra Wu Patient Age:54Y CLINICAL INDICATION: Breast cancer screening COMPARISON: [facility] MM Dig screening mamm BI w/CAD from 07/09/2018 TECHNIQUE: Standard CC and MLO images were obtained. R2 CAD reviewed. Bilateral digital breast tomosynthesis included. Additional axillary CC view left breast FINDINGS: Relatively minimal residual fibroglandular elements most notable at upper outer quadrant both breast. No suspicious calcifications either breast. Prior films are helpful in supporting areas of mild asymmetry are most likely stable June 2018 left breast-no new areas of significant concern. Stable minor areas of asymmetry Right breast-no new areas of significant concern. Small asymmetric density superior breast appear adequate stable. Also note that at seems to to dissipate on tomosynthesis views right breast-thus most likely asymmetric focus/of fibroglandular tissue here at upper-outer quadrant right breast. This minor asymmetric density present on previous study and appear overall stable, appearing unchanged on MLO view Corresponding focal asymmetric density at the lateral right breast on CC view seems to dissipate on cc tomosynthesis as well. However to be a particularly cautious in this patient with positive family history, would suggest a follow-up right mammogram in 6 months to further confirm stability this area mild asymmetry Left breast but unremarkable with no new areas of concern IMPRESSION: Right breast--focal area asymmetric density at the upper-outer quadrant right breast, by far most likely a benign stable feature, but would recommend a follow-up right mammogram 6-7 months to further confirm stability here; hopefully with routine protocol thereafter. Left breast-no new areas of concern. Follow-up left mammogram 1 year BI-RAD Category: 3 Probably Benign Finding Short Term Follow-up FOLLOW-UP: 6M 6Month Follow-up (A letter has been sent to the patient regarding results of the study.) Dictated by: Bill De Leon MD 05/21/2020 08:39 Bill De Leon MD in [place] 05/21/2020 08:39
== END ==
PROVIDERS: PCP Physician Assistant; Visit Provider Physician Assistant
DX: Z12.31 Encounter for screening mammogram for malignant neoplasm of breast (principal)
CPT/HCPCS: 77063; 77067

== ENCOUNTER → 2022-02-04 17:49 | Outpatient (CLI) | payer BC, SELFPAY ==
[2022-02-04 18:23] LABS: Hemoglobin A1C 5.2 % (4.0-6.0)
== END ==
LOC: LAB 02-05 01:11 → LAB.DROPOF 02-05 22:33 → LAB.CARL 02-05 22:34
PROVIDERS: PCP Family Medicine; Visit Provider Family Medicine
DX: E11.9 Type 2 diabetes mellitus without complications (principal)
CPT/HCPCS: 83036

== ENCOUNTER → 2022-02-26 08:51 | Outpatient (CLI) | payer BC, SELFPAY ==
--- NOTE | 2022-02-26 09:01 | XR_ITS ---
FINAL REPORT CLINICAL HISTORY: pain FINDINGS: 3 views of the left foot were obtained. There is no acute fracture or dislocation. There are mild degenerative changes. There is a small plantar calcaneal spur. The soft tissues are unremarkable. IMPRESSION: Mild degenerative change. Reviewed, Interpreted and Dictated by Rich Painting III, MD Transcribed by Jewel Luke Authenticated and [facility]
== END ==
PROVIDERS: PCP Family Medicine; Visit Provider Podiatrist
DX: M79.672 Pain in left foot (principal)
CPT/HCPCS: 73630

== ENCOUNTER → 2022-04-04 07:55 | Outpatient (CLI) | payer BC, OTHER, SELFPAY ==
--- NOTE | 2022-04-04 07:55 | CT_ITS ---
FINAL REPORT CLINICAL HISTORY: lt foot pain. no recent trauma. FINDINGS: CT LEFT FOOT WITHOUT CONTRAST Technique: Axial images through the left foot were performed by computed tomography. Sagittal and coronal reconstruction images were performed. This study was performed with techniques to keep radiation doses as low as reasonably achievable (ALARA). Individualized dose reduction techniques using automated exposure control or adjustment of mA and/or kV according to the patient's size were employed. No fracture is identified. No dislocation identified. There is a small plantar calcaneal spur. A small os trigonum measures 7 mm. There are mild hypertrophic changes at the intertarsal joints probably representing osteoarthritis. No soft tissue abnormality. IMPRESSION: Mild osteoarthritis. Reviewed, Interpreted and Dictated by Bean Prescott MD Transcribed by Jewel Luke Authenticated and [facility]
== END ==
PROVIDERS: PCP Family Medicine; Visit Provider Podiatrist
DX: M79.672 Pain in left foot (principal)
CPT/HCPCS: 73700

== ENCOUNTER → 2022-06-10 19:18 | Outpatient (CLI) | payer BC, OTHER, SELFPAY | PROVIDERS: PCP Podiatrist; Visit Provider Podiatrist | DX: M67.472 Ganglion, left ankle and foot (principal) | CPT/HCPCS: 87070; 87205; 88173 ==

== ENCOUNTER → 2022-08-08 15:20 | Outpatient (CLI) | payer BC, OTHER, SELFPAY ==
[2022-08-08 16:40] LABS: Blood Urea Nitrogen 17 mg/dl (7-17); Estimated Glomerular Filt Rate 87 ml/min (>60); GFR (African American) 105 ML/MIN (>60)
== END ==
PROVIDERS: PCP Family Medicine; Visit Provider Podiatrist
DX: M19.071 Primary osteoarthritis, right ankle and foot (principal); M19.072 Primary osteoarthritis, left ankle and foot; M25.472 Effusion, left ankle; M67.472 Ganglion, left ankle and foot
CPT/HCPCS: 36415; 82565; 84520

== ENCOUNTER → 2022-08-11 14:49 | Outpatient (CLI) | payer BC, OTHER, SELFPAY ==
--- NOTE | 2022-08-11 14:50 | MR_ITS ---
FINAL REPORT TECHNIQUE: Multiplanar MR imaging of the left ankle was obtained with and without contrast. CLINICAL HISTORY: ankle pain. knot on ankle. marker on knot. lateral sided ankle pain FINDINGS: On sagittal imaging, the Achilles tendon and plantar fascia are intact. The mortise is intact. There is no bone marrow edema or osteochondral lesion identified. Localized fluid collection is seen in the extensor digitorum tendon complex measuring 5.5 cm in craniocaudad dimension and 2.3 cm in AP dimension. Findings are likely related to tenosynovitis. There are mild hypertrophic changes at the 1st tarsometatarsal joint seen on sagittal images 9-11 of series 5. Flexor and extensor tendons are intact. IMPRESSION: Tenosynovitis of the extensor digitorum tendon complex. Reviewed, Interpreted and Dictated by Bean Prescott MD Transcribed by Елена Dickson Authenticated and [facility]
== END ==
PROVIDERS: PCP Podiatrist; Visit Provider Podiatrist
DX: M25.572 Pain in left ankle and joints of left foot (principal); G89.29 Other chronic pain; M25.372 Other instability, left ankle; M25.472 Effusion, left ankle; M67.472 Ganglion, left ankle and foot; M67.88 Other specified disorders of synovium and tendon, other site
CPT/HCPCS: 73723; A9576

== ENCOUNTER → 2022-10-21 15:33 | Outpatient (CLI) | payer BC, OTHER, SELFPAY ==
--- NOTE | 2022-10-21 15:37 | XR_ITS ---
FINAL REPORT CLINICAL HISTORY: foot pain FINDINGS: Right foot Three views were obtained. There is no acute fracture or dislocation. There are moderate hypertrophic changes of the 1st interphalangeal joint. No soft tissue abnormality is identified. There is a small plantar spur. IMPRESSION: Moderate hypertrophic changes of the 1st interphalangeal joint. Reviewed, Interpreted and Dictated by Bean Prescott MD Transcribed by Sheri Rosario Authenticated and . [facility]
--- NOTE | 2022-10-21 15:37 | XR_ITS ---
FINAL REPORT CLINICAL HISTORY: foot pain FINDINGS: Left foot Three views were obtained. There is no acute fracture or dislocation. The joint spaces appear normal. No soft tissue abnormality is identified. There is a small plantar spur. IMPRESSION: No acute process. Reviewed, Interpreted and Dictated by Bean Prescott MD Transcribed by Sheri Rosario Authenticated and [facility]
== END ==
PROVIDERS: PCP Family Medicine; Visit Provider Podiatrist
DX: M79.671 Pain in right foot (principal); M79.672 Pain in left foot
CPT/HCPCS: 73630

== ENCOUNTER 2022-12-22 15:02 | Emergency (ER) | payer BC, OTHER, SELFPAY ==
--- NOTE | 2022-12-22 15:09 | XR_ITS ---
FINAL REPORT CLINICAL HISTORY: FALL, bilat knee pain FINDINGS: RIGHT KNEE: Three views of the right knee were obtained. There is no acute fracture or dislocation. Visualized joint spaces are normally aligned. There are moderate degenerative changes. There is no joint effusion. Soft tissues are unremarkable. IMPRESSION: No acute bony abnormality. Reviewed, Interpreted and Dictated by Rich Painting III, MD Transcribed by Елена Dickson Authenticated and . [facility]
--- NOTE | 2022-12-22 15:09 | XR_ITS ---
FINAL REPORT CLINICAL HISTORY: FALL, bilat knee pain FINDINGS: LEFT KNEE: Three views of the left knee were obtained. There is no acute fracture or dislocation. Visualized joint spaces are normally aligned. There are moderate degenerative changes. There is no joint effusion. Soft tissues are unremarkable. IMPRESSION: No acute bony abnormality. Reviewed, Interpreted and Dictated by Rich Painting III, MD Transcribed by Елена Dickson Authenticated and [facility]
[2022-12-22 15:20] VITALS: BP 136/82; PULSE 86; RESP 18; TEMP 36.9; O2SAT 100; BMI 30.7
--- NOTE | 2022-12-22 15:47 | EXP.UTC ---
Discharge Plan Disposition Patient Disposition: Home, Self-Care Condition: Good Prescriptions Prescriptions: No Action lisinopril 5 mg Tablet 5 mg PO DAILY Referrals Follow up/Referrals: Kerwin Jones MD [Primary Care Provider] - See instructions Activity Restrictions/Add. Instructions Additional Instructions/Restrictions: *weight bearing as tolerated *RICE, Rest the extremity, Ice 15-20 minutes 3-4 times daily, Compress- wear the elias wrap as discussed as much as possible to help reduce swelling and pain, Elevate the extremity when at rest *Elias wrap is for support and help control swelling, use it except in the shower. Be sure that is not to tight but not to loose either *Elevate when resting? *Ibuprofen 600-800mg every 6-8 hours as needed for pain an inflammation. If need something more can take Tylenol in between doses of Ibuprofen to help Immediately follow up with your family doctor for new or worsening of symptoms, or no noticeable improvement over the next 3-5 days Clinical Impressions Clinical Impression: Bilateral knee pain Qualifiers: Chronicity: unspecified Qualified Code(s): M25.561 - Pain in right knee; M25.562 - Pain in left knee Instructions Patient Instructions: DI for Knee Pain Discharge ED Provider: Marli Tolbert [facility] General Stated complaint: AO fall BL knee pain 12/07 Mode of Arrival: Ambulatory Source of Information: Patient Limitations: No Limitations Time Seen by Provider: 12/22/22 15:35 Description of Symptoms (Recalled from Triage Doc. by RN): PATIENT C/O BILATERAL KNEE PAIN AFTER FALLING 1 WEEK AGO HEENT Symptoms (Recalled from RN notes): No Resp Symptoms (Recalled from RN notes): No Skin Symptoms (Recalled from RN notes): No MS Symptoms (Recalled from RN notes): Yes Functional Status (Recalled from RN notes): WNL History of Present Illness Provider Complaint: Patient states that she was riding a horse about a week ago and it slipped on a rock and she slide off the side of the horse States that she landed more on her left knee but also hit her right knee States that she has been having swelling and bruising to both knees since so today she came in to get it checked Related Data Home Medications Medication Instructions Recorded Confirmed lisinopril 5 mg tablet 5 mg PO DAILY Hypertension 12/22/22 12/22/22 Allergies Allergy/AdvReac Type Severity Reaction Status Date / Time tramadol Allergy Verified 10/21/22 14:05 Worker's Comp Is this a Worker's Comp case?: No [facility] Disclaimer: The information contained in this section may have been updated after the patient was seen, as this information can be updated by other users. Medical History (Updated 12/22/22 @ 17:09 by Marli Tolbert APRN) Dyspnea Hand pain, left Hypertension Left elbow fracture Low Back Pain Lumbar disc herniation with radiculopathy Swelling of left lower extremity Surgical History History of cholecystectomy History of partial hysterectomy Family History Other Hypertension Social History Smoking Status: Former smoker smoking status stop date: 1998 second hand exposure: Yes alcohol intake: current substance use type: denies use current occupational status: employed and other Travel in the last 8 weeks: None household members: spouse housing: house 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
[2022-12-22 17:10] VITALS: BP 136/82; PULSE 86; RESP 18; TEMP 36.9; O2SAT 100
== END 2022-12-22 17:12 | disposition home or self-care (01) ==
PROVIDERS: Emergency Provider Nurse Practitioner; PCP Family Medicine
DX: M25.562 Pain in left knee (principal); M25.461 Effusion, right knee; I10 Essential (primary) hypertension; Z87.891 Personal history of nicotine dependence; V80.010A Animal-rider injured by fall from or being thrown from horse in noncollision accident, initial encounter
CPT/HCPCS: 73562; 99204; 99212; G0463

== ENCOUNTER → 2023-01-03 10:36 | Outpatient (CLI) | payer BC, OTHER, SELFPAY | PROVIDERS: PCP Family Medicine; Visit Provider Internal Medicine | DX: R06.00 Dyspnea, unspecified (principal); R42 Dizziness and giddiness; R00.2 Palpitations; I48.0 Paroxysmal atrial fibrillation; R94.31 Abnormal electrocardiogram [ECG] [EKG] | CPT/HCPCS: 93225 ==

== ENCOUNTER → 2023-01-09 07:17 | Outpatient (CLI) | payer BC, OTHER, SELFPAY ==
--- NOTE | 2023-01-09 07:18 | NM_ITS ---
APPROVED REPORT Exam: Nuclear Stress Test Indication: soa..fatigue..palpitations Patient Location: Outpatient Stress Tech: Brittany Nixon [place] Tech:ARTUR Self RT(R)(N) Ht: 5 ft 7 in Wt: 200 lbs Bra Size: 38c HR: 81 bpm BP: 142/79 mmHg BSA: 2.02 m2 Rhythm: NSR TID: Resting and stress imaging in both supine and prone positions demonstrate 1.12 BMI: 31.3 History: soa..fatigue..palpitations Procedure: Patient received 0.4 mg of intravenous Lexiscan, resting heart rate 81 bpm, resting blood pressure 142/79 mmHg, with Lexiscan maximum heart rate achieved was 115 bpm which is 85 % of the maximum predicted heart rate and blood pressure was 159/85 mmHg. With Lexiscan, patient denied any complaint of chest pain. Cardiac Stress and Resting SPECT Images: Cardiac Stress and Resting SPECT images were obtained using technetium 99m Myoview 31.0 mCi stress and 10.43 mCi at rest. This is a technically difficult study due to to body habitus and soft tissue and diaphragmatic overlapping with cardiac borders. This may affect the diagnostic interpretation of the study findings. Resting and stress imaging in both supine and prone positions demonstrate a medium sized, moderate, fixed perfusion defect in the mid to distal anterior, septal, and anteroseptal LV wilson, as well has a medium sized, moderate, fixed perfusion defect in the basal lateral wall. Of note, resting and supine stress imaging also demonstrate tapered appearing perfusion defect in the inferior wall. This is no longer visualized with prone stress imaging. This defect is likely artifactual secondary to diaphragmatic attenuation. Gated imaging demonstrates normal global LV systolic function. There is mild hypokinesis in the basal lateral and distal anteroseptal LV wilson. LVEF is calculated at 56%. Conclusion: This is a technically difficult study due to to body habitus and soft tissue and diaphragmatic overlapping with cardiac borders. This may affect the diagnostic interpretation of the study findings. Diaphragmatic attenuation is present. Medium sized, moderate, fixed perfusion defect in the mid to distal anterior, septal, and anteroseptal LV wilsno, as well has a medium sized, moderate, fixed perfusion defect in the basal lateral wall. No evidence of reversible ischemia. Gated imaging demonstrates normal global LV systolic function. There is mild hypokinesis in the basal lateral and distal anteroseptal LV wilson. LVEF is calculated at 56%. Electronically signed by : Aviva Monge, 01/11/2023 19:59:33
--- NOTE | 2023-01-09 07:58 | CA_ITS ---
FINAL REPORT TECHNIQUE: Color Doppler, duplex Doppler and jacinto scale sonography of the bilateral neck vasculature was performed. Velocities were measured in the carotid arteries. Stenosis evaluation based on velocity criteria. CLINICAL HISTORY: DIZZINESS,HTN,HLD COMPARISON: None FINDINGS: The peak systolic velocity of the right common carotid artery is 113 cm/sec and internal carotid artery 115 cm/sec. The diastolic velocity in the internal carotid artery is 40 cm/sec. The ICA/CCA ratio is 1. Visually, a small amount of plaque is seen. These findings are consistent with less than 50% stenosis. The external carotid artery is patent. The right vertebral artery is patent with antegrade flow. The peak systolic velocity of the left common carotid artery is 118 cm/sec and internal carotid artery 157 cm/sec. The diastolic velocity in the internal carotid artery is 61 cm/sec. The ICA/CCA ratio is 1.3. Visually, a small amount of plaque is seen. These findings are consistent with less than 50% stenosis. The external carotid artery is patent. The left vertebral artery is patent with antegrade flow. IMPRESSION: No evidence of significant carotid stenosis. Bilateral patent vertebral arteries. If indicated, CTA or MRA could further evaluate. Reviewed, Interpreted and Dictated by Rich Painting III, MD Transcribed by Sheela Walter Authenticated and [facility]
--- NOTE | 2023-01-09 07:58 | US_ITS ---
FINAL REPORT CLINICAL HISTORY: claudication COMPARISON: None FINDINGS: ANKLE-BRACHIAL PRESSURE INDICES Pressure indices are as follows: RIGHT LOWER EXTREMITY: Ankle-brachial pressure index: 1.1 Comments: Normal LEFT LOWER EXTREMITY: Ankle-brachial pressure index: 1.1 Comments: Normal IMPRESSION: No evidence of significant obstructive peripheral vascular disease of the lower extremities Reviewed, Interpreted and Dictated by Rich Painting III, MD Transcribed by Maile Matias Authenticated and [facility]
--- NOTE | 2023-01-09 10:03 | CA_ITS ---
APPROVED REPORT Exam: Pharmacologic Technologist: Brittany Peng, Ht: 5 ft 8 in Wt: 201 lbs BSA: 2.05 m2 HR: 64 bpm BP: 142/79 mmHg Rhythm: NSR Medical History Medications: Lisinopril,,,,, Stress Test Details Test: LEXISCAN Reason for pharmacologic stress test: physical limitation, underlying LBBB. HR Resting HR: 81 bpm Max Heart Rate (APMHR): 164 bpm Max HR Achieved: 115 bpm Target HR (85% APMHR): 139 bpm % of APMHR: 70 Recovery HR: 70 bpm BP Resting BP: 142.0/79.0 mmHg Max BP: 159.0/85.0 mmHg Recovery BP: 132.0/75.0 mmHg ECG Resting ECG: NSR, LBBB Stress ECG: No change Arrhythmia: None Clinical Exercise duration: 04:00 min Highest Stage Achieved: Stress ECG Conclusion Symptoms: Mild leg discomfort, mild dizziness. No CP. Arrhythmias/Ectopy: None. ST-T Changes: No significant ST changes. Conclusion: Non-diagnostic Lexiscan stress due to underlying LBBB. Myoview images reported separately. Test Summary REST . . . . . . . Resting REST 06:14 . . 81 . 142/ 79 . . Stage 1 01:00 . . 112 . . . . Stage 2 01:00 . . 101 . 159/ 85 . . Stage 3 01:00 . . 87 . 147/ 78 . . Stage 4 01:00 . . 82 . 146/ 74 . Stop exercise at 04:00 RECOVERY 01:00 . . 77 . 159/ 80 . . RECOVERY 02:00 . . 72 . 159/ 80 . . RECOVERY 03:00 . . 71 . 132/ 75 . . RECOVERY 03:20 . . 82 . 132/ 75 . . Electronically signed by : Aviva Monge, 01/11/2023 19:52:54
== END ==
PROVIDERS: PCP Family Medicine; Visit Provider Internal Medicine
DX: R00.2 Palpitations (principal); R06.00 Dyspnea, unspecified; R42 Dizziness and giddiness; I07.1 Rheumatic tricuspid insufficiency; I34.0 Nonrheumatic mitral (valve) insufficiency; I35.1 Nonrheumatic aortic (valve) insufficiency; I44.7 Left bundle-branch block, unspecified; I48.0 Paroxysmal atrial fibrillation; M79.89 Other specified soft tissue disorders; I73.9 Peripheral vascular disease, unspecified; R94.31 Abnormal electrocardiogram [ECG] [EKG]
CPT/HCPCS: 78452; 93017; 93880; 93923; A9502; J2785

== ENCOUNTER → 2023-01-14 07:23 | Outpatient (CLI) | payer BC, OTHER, SELFPAY ==
--- NOTE | 2023-01-14 07:24 | MR_ITS ---
FINAL REPORT CLINICAL HISTORY: right medial knee pain, swelling FINDINGS: Multi planar MR imaging was performed of the right knee. The anterior and posterior cruciate ligaments are intact. The quadriceps and patellar tendons are intact. The medial and lateral menisci are intact without evidence of tear. The medial and lateral collateral ligaments appear intact. The medial and lateral retinacula appear intact. There is a moderate joint effusion. There are small osteochondral defects along the undersurface of the patella. There is an osteochondral injury along the articular surface of the medial femoral condyle. Popliteal cyst measures 5 cm. No evidence of soft tissue inflammatory reaction. IMPRESSION: Osteochondral injury along the articular surface of the medial femoral condyle and along the undersurface of the patella. Moderate joint effusion. Popliteal cyst. Reviewed, Interpreted and Dictated by Bean Prescott MD Transcribed by Sheri Rosario Authenticated and [facility]
== END ==
PROVIDERS: PCP Family Medicine; Visit Provider Orthopaedic Surgery
DX: M25.561 Pain in right knee (principal); M25.562 Pain in left knee
CPT/HCPCS: 73721

== ENCOUNTER 2023-02-05 07:21 | Day surgery (SDC) | payer BC, OTHER, SELFPAY ==
[2023-02-05] VITALS (12 sets, daily range): BP systolic 105–140; BP diastolic 59–90; PULSE 60–77; RESP 15–20; O2SAT 92–100; BMI 31.3
[2023-02-05 07:59] LABS: Basophils % 0.6 % (0.1-2.0); Eosinophils # 0.2 K/mm3 (0.0-0.4); Hematocrit 46.8 % (37.0-47.0); Hemoglobin 14.6 g/dL (12.2-16.2); Lymphocytes # 1.4 K/mm3 (0.7-4.5); Lymphocytes % 27.3 % (10-50); Mean Corpuscular HGB Conc 31.2 g/dL (31.8-35.4); Mean Corpuscular Hemoglobin 28.6 pg (27.0-31.2); Mean Corpuscular Volume 91.8 fl (81-99); Mean Platelet Volume 8.5 fl (7.4-10.4); Monocytes # 0.3 K/mm3 (0.1-1.0); Monocytes % 5.4 % (1.7-9.3); Neutrophils # 3.2 K/mm3 (1.8-7.8); Neutrophils % 62.6 % (37.0-80.0); Platelet Count 223 K/mm3 (142-424); Red Cell Distribution Width 12.9 % (11.5-17.5); White Blood Count 5.1 K/mm3 (4.8-10.8)
[2023-02-05 08:11] LABS: Anion Gap 12.1 mEq/L (5-15); Blood Urea Nitrogen 19 mg/dl (7-17); Calcium 9.3 mg/dl (8.4-10.2); Carbon Dioxide 28 mmol/L (22.0-30.0); Chloride 105 mmol/L (98-107); Creatinine Clearance Estimated 129 mL/min (50-200); Estimated Glomerular Filt Rate 87 ml/min (>60); GFR (African American) 105 ML/MIN (>60); Glucose 95 mg/dl (74-100); Potassium 4.1 mmoL/L (3.5-5.1); Sodium 141 mmol/L (136-145)
--- NOTE | 2023-02-05 08:24 | IR_ITS ---
APPROVED REPORT Patient Location: Outpatient Canopy Inspector: ARTUR Yin RT (R) PROCEDURES Left heart catheterization Left ventriculogram Selective coronary angiogram INDICATION Abnormal Myoview, Angina pectoris, Informed consent was obtained prior to the procedure. COMPLICATIONS None Estimated Blood Loss: Less than 10 mls TECHNIQUE One percent lidocaine used to anesthetize the right anterior aspect of the wrist. The right radial artery was accessed via the Seldinger technique. A 6 Vietnamese sheath was placed in the right radial artery. 2.5 mg of Verapamil, 800 mcg of nitroglycerin, 1mg Lidocaine and 5000 U Heparin were given through the arterial sheath. The papa catheter was also used to perform left heart catheterization, left ventriculogram and selective coronary angiogram. At the end of the procedure the sheath was removed good hemostasis was achieved using Traclet band, patient was transferred to the postop holding area in stable condition. ANGIOGRAPHIC RESULTS The left anterior descending artery Originates from the left coronary cusp and is widely patent free of disease The circumflex artery Is nondominant and originates in the right coronary cusp off the right coronary artery. 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 Continue medical management 2. Consider cardiac MRI given reduced ejection fraction and bundle branch block on EKG Electronically signed by : Gunner Degroot MD 02/05/2023 10:36:17
== END 2023-02-05 12:40 | disposition home or self-care (01) ==
PROVIDERS: PCP Family Medicine; Visit Provider Internal Medicine
DX: I44.7 Left bundle-branch block, unspecified (principal); I48.0 Paroxysmal atrial fibrillation; I42.9 Cardiomyopathy, unspecified; I70.213 Atherosclerosis of native arteries of extremities with intermittent claudication, bilateral legs; I08.3 Combined rheumatic disorders of mitral, aortic and tricuspid valves
CPT/HCPCS: 80048; 85025; 93458; 99152; C1725; C1769; J1644; Q9967

== ENCOUNTER 2023-02-22 12:15 | Emergency (ER) | payer BC, OTHER, SELFPAY ==
[2023-02-22] VITALS (7 sets, daily range): BP systolic 129–150; BP diastolic 82–102; PULSE 84–101; RESP 18–20; TEMP 36.7; O2SAT 97–98; BMI 31.3
--- NOTE | 2023-02-22 12:41 | PC.NURSE ---
Dr. Romero at [facility] for pt eval
--- NOTE | 2023-02-22 12:48 | XR_ITS ---
PROCEDURE INFORMATION: Exam: XR Chest Exam date and time: 02/22/2023 1:12 PM Age: 57 years old Clinical indication: Shortness of breath; Additional info: SOA, amyloid TECHNIQUE: Imaging protocol: Radiologic exam of the chest. Views: 1 view. COMPARISON: No relevant priors. FINDINGS: Lungs: Unremarkable. No consolidation. Pleural spaces: Unremarkable. No pleural effusion. No pneumothorax. Heart/Mediastinum: Unremarkable. No cardiomegaly. Bones/joints: Unremarkable. IMPRESSION: No acute cardiopulmonary disease.
[2023-02-22 12:55] LABS: Basophils # 0.1 K/mm3 (0-0.2); Basophils % 0.7 % (0.1-2.0); Eosinophils # 0.2 K/mm3 (0.0-0.4); Eosinophils % 2.3 % (0.1-12.0); Hematocrit 49.2 % (37.0-47.0); Hemoglobin 16.6 g/dL (12.2-16.2); Lymphocytes # 2.2 K/mm3 (0.7-4.5); Mean Corpuscular HGB Conc 33.7 g/dL (31.8-35.4); Mean Corpuscular Hemoglobin 29.8 pg (27.0-31.2); Mean Corpuscular Volume 88.5 fl (81-99); Mean Platelet Volume 8.9 fl (7.4-10.4); Monocytes # 0.5 K/mm3 (0.1-1.0); Monocytes % 6.2 % (1.7-9.3); Neutrophils # 4.5 K/mm3 (1.8-7.8); Neutrophils % 60.7 % (37.0-80.0); Platelet Count 273 K/mm3 (142-424); Red Blood Count 5.56 M/mm3 (4.20-5.40); Red Cell Distribution Width 12.7 % (11.5-17.5); White Blood Count 7.4 K/mm3 (4.8-10.8)
[2023-02-22 12:58] LABS: Chloride 95 mmol/L (98-107)
[2023-02-22 12:59] LABS: Potassium 4.1 mmoL/L (3.5-5.1); Sodium 132 mmol/L (136-145)
[2023-02-22 13:01] LABS: Alanine Aminotransferase 30 U/L (12-78); Alkaline Phosphatase 59 U/L (38-126); Anion Gap 16.1 mEq/L (5-15); Aspartate Amino Transferase 37 U/L (14-36); Bilirubin,Total 0.9 mg/dl (0.2-1.3); Blood Urea Nitrogen 18 mg/dl (7-17); Carbon Dioxide 25 mmol/L (22.0-30.0); Creatinine Clearance Estimated 129 mL/min (50-200); Estimated Glomerular Filt Rate 87 ml/min (>60); GFR (African American) 105 ML/MIN (>60)
[2023-02-22 13:02] LABS: Albumin Level 4.8 g/dl (3.5-5.0); Albumin/Globulin Ratio 1.5 (1.1-1.8); Calcium 9.3 mg/dl (8.4-10.2); Globulin 3.3 g/dL (1.3-3.2); Glucose 111 mg/dl (74-100); Total Protein,Serum 8.1 g/dl (6.3-8.2)
--- NOTE | 2023-02-22 13:08 | PC.NURSE ---
Notified RAD of VBG order
[2023-02-22 13:16] LABS: NT Pro Brain Natriuretic Pep. 46.4 pg/mL (0-125)
[2023-02-22 13:16] LABS: VBG Base Excess -2.6 mmol/L (-2.4-2.3); VBG HCO3 21.6 mmol/L (23-30); VBG PCO2 32.9 mmol/L (35-51); VBG PH 7.44 mmol/L (7.31-7.41); VBG PO2 53.9 mmol/L (28-40); VBG Total CO2 22.6 mmol/L (23-27)
[2023-02-22 13:19] LABS: T4 (Thyroxine) 11.7 ug/dl (5.53-11.0)
--- NOTE | 2023-02-22 13:24 | ECG_ITS ---
APPROVED REPORT Exam: Resting ECG HR:84 bpm ECG Measurements Heart Rate 84 AXES AK 197 P 55 QRSd 160 QRS 29 QT 390 T 50 QTc 431 Conclusion SINUS RHYTHM LEFT BUNDLE BRANCH BLOCK [120+ ms QRS DURATION, 80+ ms Q/S IN V1/V2, 85+ ms R IN I/aVL/V5/V6] ABNORMAL ECG UNCONFIRMED REPORT Electronically signed by : Jose Rosario MD 02/23/2023 17:10:56
[2023-02-22 13:28] LABS: Troponin I < 0.01 ng/ml (0.00-0.034)
--- NOTE | 2023-02-22 13:29 | HMH.EDGENADL ---
Discharge Plan Disposition Patient Disposition: Home, Self-Care Chief Complaint: Recheck/Abnormal Lab/Rx Prescriptions Prescriptions: No Action triamterene-hydrochlorothiazid 37.5-25 mg tablet 1 tab PO DAILY Qty: 30 2RF lisinopril 5 mg Tablet 5 mg PO DAILY Referrals Follow up/Referrals: Kerwin Jones MD [Primary Care Provider] - See instructions Activity Restrictions/Add. Instructions Additional Instructions/Restrictions: Call your family doctor to establish care for this visit to the emergency department and schedule follow-up within 48 hours to ensure improvement. If you have any worsening of your condition or any other concerning signs or symptoms, return to the emergency department or your primary care doctor for further evaluation. Clinical Impressions Clinical Impression: Acute dyspnea Discharge ED Provider: Ronald Romero General Adult HPI General Chief complaint: Recheck/Abnormal Lab/Rx Stated complaint: dizzy, GLASS, high BP Time Seen by Provider: 02/22/23 12:20 Mode of Arrival: Ambulatory Source of Information: Patient Limitations: No Limitations Description of Symptoms (Recalled from ER Triage Doc. by RN): Patient reports that her blood pressure has been high this morning and it seems that while her pressure is high she has a headache. States she just recently been put on a fluid pill to keep the fluid off her heart and that is when she began to have problems with her bp. History of Present Illness HPI narrative: 57-year-old female with history of paroxysmal A-fib, mitral, aortic, pulmonary regurgitation, concern for infiltrative cardiac disease following outpatient for further cardiac imaging presenting with shortness of breath and lightheadedness. Patient states that she has been dealing with blood pressure problems (high) for the past couple of years. Was started on a new medication (triamterene/HCTZ) 6 days ago. Since that time, has had intermittent lightheadedness without syncope. She is also feeling shortness of breath with exertion. Denies neurologic deficits otherwise, overt chest pain, nausea or vomiting, diaphoresis. Mild lower extremity edema which is improving with recent medication. Related Data Home Medications Medication Instructions Recorded Confirmed lisinopril 5 mg tablet 5 mg PO DAILY Hypertension 12/22/22 02/16/23 Previous Rx's Medication Instructions Recorded triamterene 37.5 1 tab PO DAILY #30 tabs 02/16/23 mg-hydrochlorothiazide 25 mg tablet Allergies Allergy/AdvReac Type Severity Reaction Status Date / Time tramadol Allergy Verified 02/16/23 09:50 [id number] Reductase AdvReac myalgias Verified 02/16/23 09:50 Inhibitor msg AdvReac Mild Palpitation Uncoded 02/16/23 09:50 s PFSH [facility] Disclaimer: The information contained in this section may have been updated after the patient was seen, as this information can be updated by other users. Medical History Abnormal ECG Claudication Dizziness Dyspnea Grade I diastolic dysfunction Hand pain, left Hypertension Left bundle branch block Left elbow fracture Low Back Pain Lumbar disc herniation with radiculopathy Mild aortic regurgitation Mild mitral regurgitation Mild tricuspid regurgitation Palpitations Paroxysmal A-fib Swelling of left lower extremity Surgical History History of cholecystectomy History of partial hysterectomy Family History Other Hypertension Social History Smoking Status: Never smoker smoking status stop date: 1998 second hand exposure: Yes alcohol intake: current substance use type: denies use current occupational status: employed and other Travel in the last 8 weeks: None household members: spouse housing: house current occupatio
[2023-02-22 13:33] LABS: Thyroid Stimulating Hormone 1.46 uIU/mL (0.465-4.68)
== END 2023-02-22 15:18 | disposition home or self-care (01) ==
PROVIDERS: Emergency Provider Emergency Medicine; PCP Family Medicine
DX: R06.02 Shortness of breath (principal); R42 Dizziness and giddiness; I48.0 Paroxysmal atrial fibrillation; I34.0 Nonrheumatic mitral (valve) insufficiency; I35.1 Nonrheumatic aortic (valve) insufficiency; I37.1 Nonrheumatic pulmonary valve insufficiency; M51.16 Intervertebral disc disorders with radiculopathy, lumbar region
CPT/HCPCS: 71045; 80053; 82803; 83880; 84436; 84443; 84484; 85025; 93005; 99285

== ENCOUNTER 2023-02-24 19:04 | Emergency (ER) | payer BC, OTHER, SELFPAY ==
[2023-02-24 19:05] VITALS: BP 181/93; PULSE 91; RESP 16; TEMP 36.8; O2SAT 99; BMI 31.3
--- NOTE | 2023-02-24 19:25 | ECG_ITS ---
APPROVED REPORT Exam: Resting ECG HR:85 bpm ECG Measurements Heart Rate 85 AXES ID 164 P 66 QRSd 170 QRS 51 QT 425 T 83 QTc 467 Conclusion SINUS RHYTHM LEFT BUNDLE BRANCH BLOCK [120+ ms QRS DURATION, 80+ ms Q/S IN V1/V2, 85+ ms R IN I/aVL/V5/V6] ABNORMAL ECG UNCONFIRMED REPORT Electronically signed by : Jose Rosario MD 02/25/2023 08:48:04
--- NOTE | 2023-02-24 19:51 | XR_ITS ---
PROCEDURE INFORMATION: Exam: XR Chest Exam date and time: 02/24/2023 8:28 PM Age: 57 years old Clinical indication: Sternal or substernal pain; Additional info: Chest pain TECHNIQUE: Imaging protocol: Radiologic exam of the chest. Views: 1 view. COMPARISON: CR XR CHEST PORTABLE 02/22/2023 1:12 PM FINDINGS: Lungs: Normal. Pleural spaces: Normal No pleural effusion. No pneumothorax. Heart/Mediastinum: Normal. No cardiomegaly. Bones/joints: Unremarkable. IMPRESSION: No acute findings.
--- NOTE | 2023-02-24 19:52 | CT_ITS ---
PROCEDURE INFORMATION: Exam: CT Head Without Contrast Exam date and time: 02/24/2023 8:10 PM Age: 57 years old Clinical indication: Pain; Headache not specified; Additional info: Acute onset GLASS TECHNIQUE: Imaging protocol: Computed tomography of the head without contrast. Radiation optimization: All CT scans at this facility use at least one of these dose optimization techniques: automated exposure control; mA and/or kV adjustment per patient size (includes targeted exams where dose is matched to clinical indication); or iterative reconstruction. REPORTING DATA: Count of CT and Cardiac NM exams in prior 12 months: This patient has received [address] and 0 known cardiac nuclear medicine studies in the 12 months prior to the current study. COMPARISON: HEADWO CT head/brain wo con 07/01/2018 10:38 AM FINDINGS: Brain: Normal. No hemorrhage. Unremarkable white matter. No mass effect. Cerebral ventricles: No ventriculomegaly. Paranasal sinuses: Left maxillary sinus mucosal thickening. Mastoid air cells: Visualized mastoid air cells are well aerated. Bones/joints: Unremarkable. No acute fracture. Soft tissues: Unremarkable. IMPRESSION: 1. No acute intracranial findings. 2. Significant left maxillary sinus mucosal thickening consistent with inflammatory sinus disease.
[2023-02-24 20:00] VITALS: BP 174/91; PULSE 84; RESP 20; O2SAT 98
[2023-02-24 20:07] LABS: Basophils % 0.4 % (0.1-2.0); Eosinophils # 0.2 K/mm3 (0.0-0.4); Eosinophils % 1.7 % (0.1-12.0); Hematocrit 44.3 % (37.0-47.0); Hemoglobin 14.4 g/dL (12.2-16.2); Lymphocytes # 2.6 K/mm3 (0.7-4.5); Lymphocytes % 29.6 % (10-50); Mean Corpuscular HGB Conc 32.5 g/dL (31.8-35.4); Mean Corpuscular Hemoglobin 29.5 pg (27.0-31.2); Mean Corpuscular Volume 90.7 fl (81-99); Mean Platelet Volume 8.6 fl (7.4-10.4); Monocytes # 0.4 K/mm3 (0.1-1.0); Monocytes % 4.8 % (1.7-9.3); Neutrophils # 5.6 K/mm3 (1.8-7.8); Neutrophils % 63.6 % (37.0-80.0); Platelet Count 199 K/mm3 (142-424); Red Blood Count 4.88 M/mm3 (4.20-5.40); Red Cell Distribution Width 12.4 % (11.5-17.5); White Blood Count 8.8 K/mm3 (4.8-10.8)
[2023-02-24 20:30] LABS: Alanine Aminotransferase 25 U/L (12-78); Albumin Level 4.4 g/dl (3.5-5.0); Albumin/Globulin Ratio 1.6 (1.1-1.8); Alkaline Phosphatase 57 U/L (38-126); Anion Gap 12.8 mEq/L (5-15); Aspartate Amino Transferase 32 U/L (14-36); Bilirubin,Total 0.9 mg/dl (0.2-1.3); Blood Urea Nitrogen 16 mg/dl (7-17); Calcium 9.4 mg/dl (8.4-10.2); Carbon Dioxide 29 mmol/L (22.0-30.0); Chloride 99 mmol/L (98-107); Creatinine Clearance Estimated 112 mL/min (50-200); Estimated Glomerular Filt Rate 74 ml/min (>60); GFR (African American) 90 ML/MIN (>60); Globulin 2.7 g/dL (1.3-3.2); Glucose 113 mg/dl (74-100); Potassium 3.8 mmoL/L (3.5-5.1); Sodium 137 mmol/L (136-145); Total Protein,Serum 7.1 g/dl (6.3-8.2)
[2023-02-24 20:46] LABS: Free T4 (Free Thyroxine) 1.28 ng/dl (0.78-2.19)
[2023-02-24 20:52] LABS: Troponin I < 0.01 ng/ml (0.00-0.034)
[2023-02-24 21:00] LABS: Thyroid Stimulating Hormone 1.98 uIU/mL (0.465-4.68)
[2023-02-24 21:24] LABS: Erythrocyte Sedimentation Rate 13 mm/hr (0-30)
[2023-02-24 23:06] LABS: Troponin I < 0.01 ng/ml (0.00-0.034)
--- NOTE | 2023-02-24 23:29 | HMH.EDGENADL ---
Discharge Plan Disposition Patient Disposition: Home, Self-Care Condition: Good Prescriptions Prescriptions: No Action triamterene-hydrochlorothiazid 37.5-25 mg tablet 1 tab PO DAILY Qty: 30 2RF lisinopril 10 mg tablet See Rx Instructions .ROUTE .COMPLEX Qty: 30 0RF Dose Instruction: TAKE 1 TABLET BY MOUTH DAILY FOR HYPERTENSION Rx Instructions: TAKE 1 TABLET BY MOUTH DAILY FOR HYPERTENSION Referrals Follow up/Referrals: Kerwin Jones MD [Primary Care Provider] - See instructions Activity Restrictions/Add. Instructions Additional Instructions/Restrictions: Please return to the emergency department if you experience any new or worsening symptoms. Clinical Impressions Clinical Impression: Hypertension Discharge ED Provider: Gilmar Damon General Adult HPI General Chief complaint: PAIN Stated complaint: Chest pain in early day and a headache Time Seen by Provider: 02/24/23 19:10 Mode of Arrival: Ambulatory Source of Information: Patient Limitations: No Limitations Description of Symptoms (Recalled from ER Triage Doc. by RN): Pt here today with complaints of chest pressure, heart palpitations, HTN, and headache on the left side of her head. Pt states she was here on Thursday with same symptoms with the exception of her headache. Pt addresses that she is most concerned about her BP which is 181/93 at this time, on lisinopril 5mg daily. History of Present Illness HPI narrative: Patient presents for evaluation of left-sided headache, substernal nonradiating nonexertional nonpleuritic nonreproducible chest pain, headache described as dull, pressure sensation, moderate in severity, had similar symptoms before with benign work-up thought to be partially attributable to hypertension, patient does describe hypertension measured at home as high as 181 systolic, previous therapies include home antihypertensive. No fevers no chills no weakness no numbness no sick contacts no blood thinner usage, no recreational drug use. No pain elsewhere. No visual complaints. No nuchal rigidity. Headache was not maximal in onset. Related Data Previous Rx's Medication Instructions Recorded triamterene 37.5 1 tab PO DAILY #30 tabs 02/16/23 mg-hydrochlorothiazide 25 mg tablet lisinopril 10 mg tablet See Rx Instructions .Route 02/25/23 .COMPLEX #30 tabs Allergies Allergy/AdvReac Type Severity Reaction Status Date / Time tramadol Allergy Verified 02/16/23 09:50 [id number] Reductase AdvReac myalgias Verified 02/16/23 09:50 Inhibitor msg AdvReac Mild Palpitation Uncoded 02/16/23 09:50 s PFSH [facility] Disclaimer: The information contained in this section may have been updated after the patient was seen, as this information can be updated by other users. Medical History Abnormal ECG Claudication Dizziness Dyspnea Grade I diastolic dysfunction Hand pain, left Hypertension Left bundle branch block Left elbow fracture Low Back Pain Lumbar disc herniation with radiculopathy Mild aortic regurgitation Mild mitral regurgitation Mild tricuspid regurgitation Palpitations Paroxysmal A-fib Swelling of left lower extremity Surgical History History of cholecystectomy History of partial hysterectomy Family History Other Hypertension Social History Smoking Status: Never smoker smoking status stop date: 1998 second hand exposure: Yes alcohol intake: current substance use type: denies use current occupational status: employed and other Travel in the last 8 weeks: None household members: spouse housing: house 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
[2023-02-24 23:36] VITALS: BP 145/81; PULSE 79; RESP 18; TEMP 36.8; O2SAT 99
[2023-02-26 16:41] LABS: C-Reactive Protein 4.5 mg/L (0-4)
== END 2023-02-25 | disposition home or self-care (01) ==
PROVIDERS: Emergency Provider Emergency Medicine; PCP Family Medicine
DX: R07.9 Chest pain, unspecified (principal); R00.2 Palpitations; R51.9 Headache, unspecified; I10 Essential (primary) hypertension; I48.0 Paroxysmal atrial fibrillation; I34.0 Nonrheumatic mitral (valve) insufficiency; I35.1 Nonrheumatic aortic (valve) insufficiency; I36.1 Nonrheumatic tricuspid (valve) insufficiency
CPT/HCPCS: 36415; 70450; 71045; 80053; 84439; 84443; 84484; 85025; 85651; 86140; 93005; 96361; 96372; 96374; 96375; 99285; J3475

== ENCOUNTER 2023-03-12 11:49 | Outpatient (CLI) | payer BC, OTHER, SELFPAY ==
--- NOTE | 2023-03-12 11:50 | CT_ITS ---
APPROVED REPORT Surveillance Inspector: CLINICAL INDICATION Chest Pain TECHNIQUE Image Acquisition: A 128 slice MDCT scanner ([employer] View) was used for data acquisition. A noncontrast coronary calcium scan was performed. A CT attenuation threshold of 130 Hounsfield units (HU) was used for the detection of calcium in contiguous voxels of 1 sq mm in area to be counted as individual lesions. Bolus tracking in the ascending aorta with a threshold of 180 HU was performed. Immediately afterwards, ECG synchronized cardiac CT was then performed from the cardiac base to apex using retrospective gating with ECG tube current modulation. A total of 85 mL of Isovue 370 mg/mL contrast medium was administered at 5 mL/sec followed by a saline flush using a biphasic injection protocol. A tube voltage of 120 KVp was used. The patient received the following medications prior to the cardiac CT. 0.8 mg of sublingual nitroglycerin. The average heart rate at the time of acquisition was 56 bpm and regular. Image Reconstruction Transaxial images were reconstructed at 0.67 mm slide thickness. Data was reviewed interactively on an advanced workstation capable of 2 and 3-dimensional displays in all conventional reconstruction formats, including multiplanar reformations, maximum intensity projections, curved multiplanar reformations, and volume rendered reconstructions. When applicable, selected routine images describing the relevant coronary anatomy and pathology were saved and sent to PACS. Complications None Technical Quality Overall image quality was good. Coronary artery opacification was adequate. Total DLP (Dose-Length Product) is 1451.7 mGy-cm. The reported value represents the total of one or more individual components during the CT acquisition of this date and at this time, and as such, the same value may appear in more than one CT report depending on the interpreting/reporting physicians. COMPARISON None FINDINGS CT Coronary Calcium Scoring LMA (Left Main Artery) = 0 LAD (Left Anterior Descending) = 3 LCX (Left Coronary Circumflex) = 0 RCA (Right Coronary Artery) = 0 Total Calcium Score = 3 using the AJ-130 method. The observed calcium score of 3 is at 75th percentile for subjects of the same age, sex, and race/ethnicity. The interpretation of the calcium heart score is based on the following continuum*: 0 = no calcified plaque detected (risk of coronary artery disease is very low ??? less than 5%) 1-10 = calcium detected in extremely minimal levels (risk of coronary diseases is still low ??? less than 10%) 11-100 = mild levels of plaque detected with certainty (mild or minimal narrowing of heart arteries is likely) 101-400 = definite,at least moderate levels of plaque detected (relatively high risk of a heart attack within 3-5 years) >401-999 = extensive levels of plaque detected (high risk of heart attack, high levels of vascular disease are present, high likelihood of at least one significant coronary narrowing) *The calcium heart score quantifies the burden of coronary calcification/plaque in the coronary arteries. The calcium heart score is not able to evaluate the presence or burden of non-calcified (i.e. soft) plaque. There is identifiable calcification in the ascending aorta, but no calcification in the aortic valve, mitral annulus or mitral valve, pericardium, or myocardium. Coronary CT Angiography Coronaries have normal origin and proximal course. The coronary arterial system is right dominant. Note: Stenosis is reported as maximum percentage diameter stenosis. Stenosis grading is reported using the following scheme: Quantitative Stenosis Grading: Left Main (LM): The left main originates normally from the left sinus of
[2023-03-12 12:05] VITALS: BMI 31.3
[2023-03-12 12:18] VITALS: BP 138/73; PULSE 56; RESP 17; O2SAT 100
[2023-03-12 12:40] VITALS: BP 131/69; PULSE 54; RESP 17; O2SAT 98
[2023-03-12 12:44] VITALS: BP 122/65; PULSE 60; RESP 17; O2SAT 99
[2023-03-12 12:50] VITALS: BP 135/83; PULSE 61; RESP 16; TEMP 36.1; O2SAT 96
== END 2023-03-12 12:55 | disposition home or self-care (01) ==
LOC: RAD 11:50
PROVIDERS: PCP Family Medicine; Visit Provider Physician Assistant
DX: R00.2 Palpitations (principal); I44.7 Left bundle-branch block, unspecified; R42 Dizziness and giddiness; I48.0 Paroxysmal atrial fibrillation; I51.89 Other ill-defined heart diseases; R94.31 Abnormal electrocardiogram [ECG] [EKG]
CPT/HCPCS: 75574; Q9967

== ENCOUNTER → 2023-04-13 14:16 | Outpatient (CLI) | payer BC, OTHER, SELFPAY ==
--- NOTE | 2023-04-13 14:37 | CA_ITS ---
APPROVED REPORT EXAM: Comprehensive 2D, Doppler, and color-flow Echocardiogram Upper Cutter: Anaya Mckeon RT(R) Ht: 5 ft 7 in Wt: 204lbs BSA: 2.04 BP: 143/86 mmHg Indications: LBBB, AFIB, non rheumatic AI, heart disease, SOB, HALL 2D Dimensions LVEF (Palmer's) 54.30 % F: 54 - 74 LV Volume 107.40 mL F: 46 - 106 LV Volume Index 52.65 mL/m2 F: 29 - 61 M-Mode Dimensions RVDd 2.54 cm (0.9-2.6) LVDd 6.24 cm (3.5-5.7) LVDs 4.99 cm (3.5-5.7) IVSd 0.64 cm (0.6-1.1) PWd 0.68 cm (0.6-1.1) EF (Teich) 40.20% FS 20.00% EDV (Teich) 196.90 mL ESV (Teich) 117.70 mL LV Diastology E/A Ratio 0.97 Mitral Valve MV A Velocity 90.00 (40-130 cm/s) Left Ventricle The left ventricle is normal size. The left ventricular systolic function is normal. The left ventricular ejection fraction is within the normal range. There is normal left ventricular wall thickness. There is normal LV segmental wall motion. The left ventricular diastolic function is normal. LVEF is 60%. Right Ventricle The right ventricle is normal size. The right ventricular systolic function is normal. Atria The left atrium size is normal. The right atrium size is normal. There is no Doppler evidence of interatrial shunt. Aortic Valve The aortic valve opens well. There is no aortic valvular stenosis. Mild aortic regurgitation. Mitral Valve The mitral valve is normal in structure. No evidence of mitral valve stenosis. Trace mitral regurgitation. Tricuspid Valve The tricuspid valve leaflets are thin and pliable. Trace tricuspid regurgitation. There is insufficient TR jet to estimate RVSP. Pulmonic Valve The pulmonary valve is normal in structure. Trace pulmonic regurgitation. Great Vessels The aortic root is normal in size. The ascending aorta is normal in size. IVC is normal in size and collapses >50% with inspiration. Pericardium There is no pericardial effusion. Other Information Study Quality: Fair Conclusion Normal biventricular systolic function. Mild AI. Electronically signed by : Aviva Monge MD 04/23/2023 23:47:57
== END ==
PROVIDERS: PCP Family Medicine; Visit Provider Internal Medicine
DX: I07.1 Rheumatic tricuspid insufficiency (principal); I34.0 Nonrheumatic mitral (valve) insufficiency; I35.1 Nonrheumatic aortic (valve) insufficiency; I44.7 Left bundle-branch block, unspecified; I48.0 Paroxysmal atrial fibrillation; R94.31 Abnormal electrocardiogram [ECG] [EKG]
CPT/HCPCS: 93306

== ENCOUNTER 2023-04-27 09:20 | Day surgery (SDC) | payer BC, OTHER, SELFPAY ==
[2023-04-23 16:42] VITALS: BMI 32.8
[2023-04-27] VITALS (10 sets, daily range): BP systolic 121–154; BP diastolic 67–91; PULSE 58–63; RESP 12–18; TEMP 36.4–36.6; O2SAT 98–100
[2023-04-27] MEDS: LACTATED RINGERS 1000ML 1,000 ML 25 ML IV (09:57)
--- NOTE | 2023-04-27 11:12 | EXP.ANES.CKL ---
[facility] Disclaimer: The information contained in this section may have been updated after the patient was seen, as this information can be updated by other users. Medical History Abnormal ECG Claudication Dizziness Dyspnea Grade I diastolic dysfunction Hand pain, left Hypertension Left bundle branch block Left elbow fracture Low Back Pain Lumbar disc herniation with radiculopathy Mild aortic regurgitation Mild mitral regurgitation Mild tricuspid regurgitation Palpitations Paroxysmal A-fib Swelling of left lower extremity Surgical History History of cholecystectomy History of partial hysterectomy History of shoulder surgery Family History Other Family history of [place] (myocardial infarction) Family history of kidney disease Hypertension Social History Smoking Status: Never smoker smoking status stop date: 1998 second hand exposure: Yes alcohol intake: never substance use type: denies use current occupational status: employed and other Travel in the last 8 weeks: None household members: spouse housing: house current occupation: [employer] current occupational exposures/hazards: No caffeine: No [facility] Anesthesia Checklist Patient Identification Patient Identification: Arm Band Structural Data Admitted From: Home Planned Operative Procedure/s: Right Knee Arthroscopy Consent for Planned Operative Procedure(s) Verified: Yes Verified Documents: Surgical Consent and History and Physical NPO Status Verified Time NPO: 00:00 Additional verifications Anesthesia Reactions: No Hx Blood Transfusions: No Blood Transfusion Reaction: No Airway Assessment Mallampati Score:: Class II C-Spine Mobility Assessed: Yes TMJ Mobility Assessed: Yes Dentition: Good Dentition Neurological Assessment Level of Consciousness: Awake and Alert Anesthesia Plan Anesthesia Risk discussed: Yes Anesthesia Plan: Verified ASA Class: III Anesthesia Type: General
[2023-04-27] MEDS: CEFAZOLIN SODIUM 2 GM in 0.9 % SODIUM CHLORIDE 100 ML IV (11:45)
[2023-04-27] MEDS: BUPIVACAINE 0.5% 30ML VIAL 150 MG (12:15)
[2023-04-27] MEDS: RINGERS SOLUTION,LACTATED 6,000 ML 100 ML IR (12:16)
--- NOTE | 2023-04-27 12:31 | P.PNANES_ITS ---
[facility] Anesthesia Record Part I Anesthesia Record I Intake, IV Amount: 1,500 Hydration: Adequate Estimated blood loss (mL): 0 Urine output (mL): 0 Blood Pressure: 133/67 SaO2: 99 Pulse Rate: 63 Airway Patency: Patent Respiratory Rate: 12 Temperature: 98 F Patient is:: Awake and Stable Stable to PACU at:: 12:25
--- NOTE | 2023-04-27 12:37 | P.OP_ITS ---
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 Right knee arthroscopy with chondroplasty medial femoral condyle 2 right knee arthroscopy chondroplasty lateral femoral condyle 3 right knee arthroscopy with removal intra-articular loose bodies through same portal Surgeon:: Conrado Henderson DO TESTING AND REGULATING CHIEF:: Dhiraj Restrepo Anesthesia: GETA Estimated blood loss (mL): 0 Operative findings:: See dictation Operative note:: Patient was identified preoperatively. Right knee marked with yes my initials. Transported operative suite. Placed upon operating bed. General anesthesia ministered airway secured. Right lower extremity prepped and draped within the knee trammell. Once prepped and draped final operative timeout performed to identify proper patient procedure and extremity. Everyone involved the case agreed. There is no counter indications to beginning. She did receive preoperative antibiotics. Marking pen was used to lars bony landmarks in the and standard portal sites. Esmarch was used to exsanguinate extremity. Pneumatic tourniquet inflated 300 mmHg. Lateral incision made blunt with trocar was placed in the patellofemoral joint exchange with a camera. Diagnostic arthroscopy began. I swept into the medial gutter and the medial joint line where the anterior medial portal was made under direct visualization with the help of an 18-gauge spinal needle. This was exchanged with a probe. Within the medial joint line the medial meniscus had some fraying but was not torn. There is grade III and IV chondromalacia of the medial femoral condyle with associated loose mellisa cartilage and intra-articular loose body in the medial gutter. Using a sucker shaver chondroplasty was performed of the medial femoral condyle and removal of the loose body was performed with the sucker shaver. Attention was brought in the intercondylar notch the ACL was seen and intact. Tensions brought to the lateral joint line there was also grade III and IV chondromalacia and small area of the lateral femoral condyle which was lightly debrided with a sucker shaver. Scope into the medial gutter where the intra- articular loose bodies were removed. Back in the patellofemoral joint patella did track midline in the trochlea but did show slight grade signs of grade III and IV chondromalacia of the patella. Camera was removed the joint was drained local anesthesia filtrated the portal sites skin closed with nylon stitch. Sterile dressing placed from toe to thigh patient waken anesthesia taken recovery in stable condition. Condition: stable Disposition: PACU Complications:: None apparent
[2023-04-27] MEDS: MEPERIDINE 25MG/ML 1ML SYRINGE 25 MG IV (12:51)
[2023-04-27] MEDS: MORPHINE 2MG/ML SYRINGE 2 MG IV (12:52)
--- NOTE | 2023-04-28 13:04 | EXP.ANES.II ---
[facility] Anesthesia Record Part II Anesthesia Record Part II Discharge Time: 12:55 Destination: Surgical Day Care (OP Surgery) PACU nurse assessment reviewed?: Yes Patient Condition:: Good Anesthesia Complications:: None Swallowing reflex intact?: Yes Airway Patency: Patent Cyanosis?: No Blood Pressure: 134/83 SaO2: 100 Respiratory Rate: 16 Pulse Rate: 60 Temperature: 97.7 F Mental Status: Alert & Oriented Pain level:: 8 Nausea and/or vomitting:: None Intake, IV Amount: 0 Hydration: Adequate
[2023-04-28 13:05] VITALS: BP 134/83; PULSE 60; RESP 16; TEMP 36.5; O2SAT 100
== END 2023-04-27 13:30 | disposition home or self-care (01) ==
PROVIDERS: PCP Family Medicine; Visit Provider Orthopaedic Surgery
PROC: (CPT 29870; principal; 2023-04-27 11:00)
DX: M17.11 Unilateral primary osteoarthritis, right knee (principal); M23.41 Loose body in knee, right knee; M94.261 Chondromalacia, right knee
CPT/HCPCS: 29879; 96374; J2405

== ENCOUNTER → 2023-04-29 09:38 | Outpatient (CLI) | payer BC, OTHER, SELFPAY ==
--- NOTE | 2023-04-29 09:38 | MR_ITS ---
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 Software platform sequences were performed using the Siemens Tucoola MR B19 platform. A set of three-plane, low-resolution, large [id number] localizers were initially acquired. Then axial, coronal, sagittal TrueFISP, as well as axial HASTE images, were obtained. These were followed by gated TrueFISP breathold cinematic sequences obtained in the short axis with 8 mm slices and 2 mm gaps, 2-chamber (vertical long axis), 3-chamber, 4-chamber (horizontal long axis). A bolus of contrast was injected intravenously with first-pass sequences obtained in the short axis and four-chamber planes. After approximately 10 minutes, a TI job spotter sequence was performed to determine the optimal TI time. Using the optimized TI time, delayed contrast enhancement segmented inversion???recovery TurboFLASH sequences were obtained in the short axis, 2-chamber, 3-chamber, and 4-chamber projections. 2D-velocity phase mapping was performed. Functional parameters were calculated by offline analysis on an independent workstation ([employer] Platform, Metaps). Contrast: ProHance??? (Gadoteridol) FINDINGS MORPHOLOGY AND FUNCTION Left ventricle: The left ventricle is normal in size. The indexed left ventricular end-diastolic volume (LVEDVi) is 83 ml/m2 (reference range 57-105 ml/m2 in males, 56-96 ml/m2 in females). Normal left ventricular systolic function is present. There is normal left ventricular wall thickness. There are no regional wall motion abnormalities noted. LVEF is calculated at 58% (reference range 57-77%). Right ventricle: The right ventricle is normal in size. The indexed right ventricular end-diastolic volume (RVEDVi) is 69 ml/m2 (reference range 61-121 ml/m2 in males, 48-112 ml/m2 in females). Normal right ventricular systolic function is present. RVEF is calculated at 61% (reference range 52-72% in males, 51-71% in females). Atria: The left atrium is normal in size. The maximum indexed left atrial volume is 32 ml/m2 (reference range 26-52 ml/m2 in males, 27-53 ml/m2 in females). The right atrium is normal in size. The maximum indexed right atrial volume is 20 ml/m2 (reference range 18-90 ml/m2). Aorta: The diameter of the aortic annulus is normal, measuring 22 mm (coronal view reference range 21-30 mm in males, 19-27 mm in females). The diameter of the aortic sinus is normal, measuring 25 mm (coronal view reference range 25-42 mm in males, 24-36 mm in females). The diameter of the sinotubular junction is normal, measuring 23 mm (coronal view reference range 18-32 mm in males, 18-28 mm in females). The diameters of the ascending and descending thoracic aorta are normal. Main pulmonary artery: The main pulmonary artery diameter is normal. Pericardium: The pericardial thickness is normal. The pericardial thickness measures 1.4 cm (normal < 4.0 cm). There is no pericardial effusion. VALVES The valvular morphologies in the visualized sequences appear normal. There is no significant valvular stenosis or regurgitation of the mitral, aortic, tricuspid, or pulmonic valve noted visually. Systolic anterior motion of the mitral valve is not visualized. Ratio of pulmonary to systemic flow, Qp:Qs ratio = 1.1 (normal < or = 1.2), demonstrating no evidence of hemodynamically significant shunt. TISSUE CHARACTERIZATION Resting Perfusion: Normal myocardial blood flow at rest. No evidence of resting hypoperfusion. Myocardial Fibrosis and/or edema: Normal gadolinium kinetics are present. No evidence of late gadolinium en
[2023-04-29 10:13] LABS: Blood Urea Nitrogen 15 mg/dl (7-17)
[2023-04-29 10:14] LABS: Estimated Glomerular Filt Rate 74 ml/min (>60); GFR (African American) 90 ML/MIN (>60)
--- NOTE | 2023-04-29 11:43 | XR_ITS ---
FINAL REPORT CLINICAL HISTORY: Right foot pain COMPARISON: None FINDINGS: RIGHT FOOT: Three views of the right foot were obtained. There is no acute fracture or dislocation. There is mild hallux valgus deformity. There is mild degenerative change of the first MTP. Small calcaneal spurs are noted. There is no acute soft tissue abnormality. IMPRESSION: Degenerative change without acute bony abnormality. Reviewed, Interpreted and Dictated by Rich Painting III, MD Transcribed by Maile Matias Authenticated and [facility]
--- NOTE | 2023-04-29 11:43 | XR_ITS ---
FINAL REPORT CLINICAL HISTORY: Left ankle pain COMPARISON: None FINDINGS: LEFT ANKLE: Three views of the left ankle were obtained. There is no acute fracture or dislocation. There is mild degenerative change. Soft tissue swelling is noted. Small calcaneal spurs are present. IMPRESSION: Degenerative change without acute bony abnormality. Reviewed, Interpreted and Dictated by Rich Painting III, MD Transcribed by Maile Matias Authenticated and . [facility]
--- NOTE | 2023-04-29 11:43 | XR_ITS ---
FINAL REPORT CLINICAL HISTORY: Right ankle pain COMPARISON: None FINDINGS: RIGHT ANKLE: Three views of the right ankle were obtained. There is no acute fracture or dislocation. There is mild degenerative change. Soft tissue swelling is noted. There are small calcaneal spurs. IMPRESSION: Degenerative change without acute bony abnormality. Reviewed, Interpreted and Dictated by Rich Painting III, MD Transcribed by Maile Matias Authenticated and [facility]
--- NOTE | 2023-04-29 11:43 | XR_ITS ---
FINAL REPORT CLINICAL HISTORY: Left foot pain COMPARISON: None FINDINGS: LEFT FOOT: Three views of the left foot were obtained. There is no acute fracture or dislocation. There is mild degenerative change, worst at the great toe. Small calcaneal spurs are noted. There is no soft tissue abnormality. IMPRESSION: Degenerative change without acute bony abnormality. Reviewed, Interpreted and Dictated by Rich Painting III, MD Transcribed by Maile Matias Authenticated and [facility]
== END ==
PROVIDERS: PCP Family Medicine; Visit Provider Internal Medicine
DX: I07.1 Rheumatic tricuspid insufficiency (principal); I34.0 Nonrheumatic mitral (valve) insufficiency; I35.1 Nonrheumatic aortic (valve) insufficiency; I44.7 Left bundle-branch block, unspecified; I48.0 Paroxysmal atrial fibrillation; R94.31 Abnormal electrocardiogram [ECG] [EKG]; M79.671 Pain in right foot; M79.672 Pain in left foot
CPT/HCPCS: 36415; 73610; 73630; 75561; 82565; 84520; A9576

== ENCOUNTER → 2023-04-30 11:47 | Outpatient (CLI) | payer BC, OTHER, SELFPAY ==
[2023-04-30 12:05] LABS: Basophils % 0.6 % (0.1-2.0); Eosinophils # 0.2 K/mm3 (0.0-0.4); Eosinophils % 3.5 % (0.1-12.0); Hematocrit 41.2 % (37.0-47.0); Hemoglobin 13.8 g/dL (12.2-16.2); Lymphocytes # 1.6 K/mm3 (0.7-4.5); Lymphocytes % 29.3 % (10-50); Mean Corpuscular HGB Conc 33.6 g/dL (31.8-35.4); Mean Corpuscular Hemoglobin 31.4 pg (27.0-31.2); Mean Corpuscular Volume 93.3 fl (81-99); Mean Platelet Volume 8.4 fl (7.4-10.4); Monocytes # 0.3 K/mm3 (0.1-1.0); Monocytes % 5.7 % (1.7-9.3); Neutrophils # 3.4 K/mm3 (1.8-7.8); Neutrophils % 60.9 % (37.0-80.0); Platelet Count 216 K/mm3 (142-424); Red Blood Count 4.41 M/mm3 (4.20-5.40); Red Cell Distribution Width 13.1 % (11.5-17.5); White Blood Count 5.5 K/mm3 (4.8-10.8)
[2023-04-30 13:14] LABS: Chloride 103 mmol/L (98-107); Potassium 4.2 mmoL/L (3.5-5.1); Sodium 139 mmol/L (136-145)
[2023-04-30 13:16] LABS: Alanine Aminotransferase 23 U/L (12-78); Anion Gap 9.2 mEq/L (5-15); Aspartate Amino Transferase 30 U/L (14-36); Bilirubin,Unconjugated 0.3 mg/dL (0.0-1.1); Blood Urea Nitrogen 15 mg/dl (7-17); Carbon Dioxide 31 mmol/L (22.0-30.0); Estimated Glomerular Filt Rate 87 ml/min (>60); GFR (African American) 105 ML/MIN (>60)
[2023-04-30 13:17] LABS: Albumin Level 4.3 g/dl (3.5-5.0); Alkaline Phosphatase 56 U/L (38-126); Bilirubin,Direct 0.2 mg/dl (0.0-0.4); Bilirubin,Indirect 0.3 mg/dL (0.0-0.9); Bilirubin,Total 0.5 mg/dl (0.2-1.3); Calcium 9.1 mg/dl (8.4-10.2); Chol/HDL Ratio 4.1 (1-3.5); Cholesterol 236 mg/dl (140-200); Glucose 89 mg/dl (74-100); HDL Cholesterol 57 mg/dl (40-60); Magnesium 2.1 mg/dl (1.6-2.3); Total Protein,Serum 6.5 g/dl (6.3-8.2); Triglycerides 163 mg/dl (30-150); VLDL Cholesterol 33 mg/dL (0-40)
[2023-04-30 13:28] LABS: Direct LDL Cholesterol 119.26 mg/dL (100-129)
[2023-04-30 13:34] LABS: Free T4 (Free Thyroxine) 1.36 ng/dl (0.78-2.19)
[2023-04-30 17:58] LABS: Thyroid Stimulating Hormone 1.25 uIU/mL (0.465-4.68)
== END ==
PROVIDERS: PCP Family Medicine; Visit Provider Internal Medicine
DX: E11.9 Type 2 diabetes mellitus without complications (principal); I44.7 Left bundle-branch block, unspecified; I48.0 Paroxysmal atrial fibrillation; I51.89 Other ill-defined heart diseases; R06.00 Dyspnea, unspecified; R94.31 Abnormal electrocardiogram [ECG] [EKG]
CPT/HCPCS: 80048; 80061; 80076; 83735; 84439; 84443; 85025

== ENCOUNTER 2023-06-02 14:00 | Outpatient (RCR) | payer BC, OTHER, SELFPAY ==
--- NOTE | 2023-05-13 12:08 | HMH.PTOPEV ---
PT Outpatient Evaluation Rehab PT Outpatient Evaluation Start: 05/13/23 11:02 Freq: Status: Active Protocol: Document 05/13/23 11:02 PDESEROUX (Rec: 05/13/23 12:08 PDESEROUX [id number]) E-signed By Chris Murphy, PT Outpatient Therapy Subjective History Subjective History Pt. is a 57 year old female who presents to [facility] Outpatient Physical Therapy Services in [place] for the initial evaluation this date(05/13/23) w/ c/o acute and constant RLE knee P!, edema, and instability S/P RLE KS w/ Chondroplasty on 04/27/23. Pt. reports having a chronic history of RLE knee P! and degenerative changes, but states having another injury to it over the summer(2022) while riding her horse. Pt. reports having to wait for 3 months to get the approval from her [employer] Novel[employer] to undergo surgery. Pt. reports ambulating w/ bilateral axillary crutches for one day post surgery, then ambulating w/ single crutch for 5 days post surgery. Pt. reports ambulating w/o AD at this time . Physical Therapist encouraged pt. to ambulate w/ AD if there is P! or a limp w/ ambulating, pt. vocalized understanding. Pt. reports symptom worsen w/ prolonged sitting, sleeping, and ambulating on uneven [place]. Pt. reports having some symptom relief w/ prescribed medicine, elevation, and ice. Pt. describes symptoms as a constant ache or throb that worsens to a sharp and stabbing P! w/ activity. Pt. reports having increased symptoms along lateral portion of thigh and lateral/anterior lower limb. Pt. RTMD 06/16/23 . Current medications include( pt. unable to recall, reports bringing in a list on her phone upon return). PMH includes L bundle branch block , irregular cardiac rhythm, LUE elbow radial head fx., Cholecystectomy, Hysterectomy, S/P RUE shldr. ATS, RUE CTS, Hypertension, hx. of DM-II, and 60% loss of sensation of RLE compared to LLE d/t history of LBP!. New diagnosis of cancer in past 12 No months? Chief Complaint Pain,Spasms,Stiff,Clicks, Swelling,Gives out/Unstable, Paresthesia,Weakness Symptom Type Ache,Throb,Sharp,Stabbing, Burning,Numbness,Shooting Symptoms Relieved By Ice,Brace/Support,Prescription Meds,Elevation Symptoms Aggravated By Sitting,Standing,Bending/ Stooping,Physical Activity, Twisting,Walking Prior Functional Limitations None Current Functional Limitations Dressing,Sleeping,Standing, Sitting,Squatting,Recreation Activity,Walking,Stairs, Bending/Stooping Symptom Description Constant and Continuous, Intermittent,Activity Dependent Level of pain today (0-10) 2 Pain scale - at its best (0-10) 1 Pain scale - at its worst (0-10) 9 Hip/Knee Eval Gait Observation General Gait Pattern Observation Antalgic Gait,Decrease Weight Bear (R),Decrease Stride Lngth (L) Assistive Device Assistive Devices None / NA Palpation Tenderness right Knee Palpation Finding Tenderness,Trigger Point, Muscle Guarding Knee Palpation Overall Comment grade 4 +TTP IT band/gastroc/ patellar tendon/medial jt. line/fibular head MMT Hip Flexion Strength Grade 4- Good- Hip Abduction Strength Grade 4- Good- Hip Adduction Strength Grade 4- Good- Hip Extension Strength Grade 4- Good- Gluteus Bill Strength Grade 4- Good- Hip External Rotation Strength Grade 3+ Fair+ Hip Internal Rotation Strength Grade 3+ Fair+ Knee Extension Strength Grade 3+ Fair+ Knee Flexion Strength Grade 3+ Fair+ Knee Extensors Muscle Tone Description Severe Hypertonicity Knee Flexors Muscle Tone Description Severe Hypertonicity Hip Extensors Muscle Tone Description Severe Hypertonicity Hip Flexors Muscle Tone Description Severe Hypertonicity ROM Knee Extension Active Range of Motion ( +15 degrees) Knee Extension Passive Range of Motion ( +12 degrees) Knee Flexion Active Range of Motion ( 126 degrees) Knee Flexion Passive Range of Motion ( 129 degrees) Knee ROM Limitations Soft Tissue Tightness,Muscle Weakness,Muscle Tone,Pain Effusion joint effusion knee exam standard right Mid - Patellar Circumerential Measure ( 45 cm) 5cm Proximal Circumference Measure (cm) 49 5cm Distal Circumference Measure (cm) 38 Special Tests Knee Valgus Stress Test Negative Right Knee Varus Stress Test Negative Right Outpatient Therapy Assessment Impairments Problems/Impairmments Palpation Tenderness,Impaired Range of Motion,Impaired Strength,Impaired Endurance, Impaired Transfers,Impaired Gait Pattern,Impaired Walking, Impaired Standing,Impaired Sitting,Impaired Dressing, Impaired Household Care, Impaired Stair Climbing, Impaired Incline Stepping, Impaired Stepping on Uneven Surface,Impaired Squatting, Impaired Bending,Impaired Recreational Activities, Impaired Work Activities, Impaired Desk/Computer Activities,Increased Edema, Subjective C/O Pain,Impaired Self Care/Self Management Prognosis Rehab Potential Good Comment w/ HEP compliancy Clinical Impression Consistent with Diagnosis Yes Consistent with S/P R KS w/ Chondroplasty Short Term Goals Number of Weeks 2 Decreased Palpation Tenderness Yes: grade 1-2 +TTP to TTP assessment above Decrease Subjective C/O Pain Yes: worse:10/01 Patient to be Ind w/ HEP Yes Alf Goals Number of Weeks 4-6 Decreased Palpation Tenderness Yes: grade 1 +TTP to TTP assessment above Increase Range of Motion Yes: RLE knee flexion/ext. 0- 130 A/PROM Increase Strength Yes: 4+ to 09/26 RLE knee MMT scores grossly Improve Gait Pattern without Assistive Yes Device Increase Ability to Walk Yes Increase Ability to Stand Yes Increase Ability to Sit Yes Improve Ability to Climb Stairs Yes Improve Incline Stepping Ability Yes Improve Ability to Step on Uneven Yes Surfaces Improve LEFI Score Yes Decrease Edema Yes Decrease Subjective C/O Pain Yes: worse:-07/04 Improve Self Care/Self Management Yes Patient to be Ind w/ Advanced HEP Yes Outpatient Therapy Plan of Care Treatment Plan May Include Therapeutic Exercise Including Home Yes Exercise Program Manual Therapy Techniques Yes Neuromuscular Re-education Yes Therapeutic Activities to Return to Yes Previous Functional/Work Level Gait Training Yes ADL/Self Care Education Yes Dry Needling Yes Thermal Modalities Yes Electrical Stimulation Yes Ultrasound/Phonophoresis Yes Iontophoresis Yes Vasopneumatic Compression Pump Yes Massage Yes Eval/Re-Eval Yes Frequency Times per week 2 Duration Number of Weeks 4-6 Addendums This patient is a candidate for social No or vocational rehab? Patient/Guardian verbally acknowledges Yes understanding of treatment program and consents to further treatment? Patient/Guardian verbally acknowledges Yes understanding of diagnosis, prognosis and goals for treatment? Eval Complexity PT Charges 81184 - Low Complexity Shoulder/Elbow Eval Shoulder Objective Measurements Elbow Objective Measurements PHYSICIAN CERTIFICATION: I certify the specified therapy services for Omayra Alexandermelita are required, authorized, and reviewed every 30 days.
== END 2023-07-13 07:20 | disposition home or self-care (01) ==
LOC: PT 14:00
PROVIDERS: PCP Family Medicine; Visit Provider Orthopaedic Surgery
DX: M94.261 Chondromalacia, right knee (principal); Z98.890 Other specified postprocedural states
CPT/HCPCS: 97010; 97014; 97110; 97163; G0283

== ENCOUNTER 2023-06-29 15:07 | Outpatient (CLI) | payer BC, OTHER, SELFPAY ==
[2023-06-29 15:26] LABS: Basophils # 0.1 K/mm3 (0-0.2); Basophils % 1.2 % (0.1-2.0); Eosinophils # 0.3 K/mm3 (0.0-0.4); Eosinophils % 4.5 % (0.1-12.0); Hemoglobin 14.5 g/dL (12.2-16.2); Lymphocytes # 2.4 K/mm3 (0.7-4.5); Lymphocytes % 34.5 % (10-50); Mean Corpuscular HGB Conc 33.8 g/dL (31.8-35.4); Mean Corpuscular Hemoglobin 31.1 pg (27.0-31.2); Mean Corpuscular Volume 92.1 fl (81-99); Mean Platelet Volume 8.2 fl (7.4-10.4); Monocytes # 0.3 K/mm3 (0.1-1.0); Monocytes % 4.7 % (1.7-9.3); Neutrophils # 3.8 K/mm3 (1.8-7.8); Neutrophils % 55.1 % (37.0-80.0); Platelet Count 222 K/mm3 (142-424); Red Blood Count 4.67 M/mm3 (4.20-5.40); Red Cell Distribution Width 13.2 % (11.5-17.5); White Blood Count 6.9 K/mm3 (4.8-10.8)
[2023-06-29 16:00] LABS: Hemoglobin A1C 5.3 % (4.0-6.0)
[2023-06-29 16:21] LABS: Alanine Aminotransferase 22 U/L (12-78); Albumin Level 4.7 g/dl (3.5-5.0); Alkaline Phosphatase 63 U/L (38-126); Anion Gap 10.7 mEq/L (5-15); Aspartate Amino Transferase 29 U/L (14-36); Bilirubin,Total 0.4 mg/dl (0.2-1.3); Blood Urea Nitrogen 14 mg/dl (7-17); Calcium 9.8 mg/dl (8.4-10.2); Carbon Dioxide 29 mmol/L (22.0-30.0); Chloride 105 mmol/L (98-107); Estimated Glomerular Filt Rate 86 ml/min (>60); GFR (African American) 104 ML/MIN (>60); Globulin 2.4 g/dL (1.3-3.2); Glucose 96 mg/dl (74-100); Potassium 4.7 mmoL/L (3.5-5.1); Sodium 140 mmol/L (136-145); Total Protein,Serum 7.1 g/dl (6.3-8.2)
[2023-07-15 09:13] LABS: 1,25 Dihydroxy Vitamin D 55 pg/mL (.); 1,25-Dihydroxy, Vitamin D-2 <10 pg/mL (.); 1,25-Dihydroxy, Vitamin D-3 52 pg/mL (.)
== END 2023-06-29 23:59 ==
LOC: LAB 15:08
PROVIDERS: PCP Family Medicine; Visit Provider Podiatrist
DX: Z01.818 Encounter for other preprocedural examination (principal); E11.9 Type 2 diabetes mellitus without complications; M25.372 Other instability, left ankle
CPT/HCPCS: 36415; 80053; 82652; 83036; 85025

== ENCOUNTER 2023-07-09 07:40 | Day surgery (SDC) | payer BC, OTHER, SELFPAY ==
[2023-07-07 12:35] VITALS: BMI 32.1
[2023-07-09] VITALS (10 sets, daily range): BP systolic 118–158; BP diastolic 63–95; PULSE 63–95; RESP 15–19; TEMP 36.1–43; O2SAT 96–100
[2023-07-09] MEDS: LACTATED RINGERS 1000ML 1,000 ML 100 ML IV (08:08)
--- NOTE | 2023-07-09 08:18 | XR_ITS ---
FINAL REPORT CLINICAL HISTORY: preop order FINDINGS: SINGLE-VIEW CHEST The heart size is normal. The mediastinum is normal. The lungs are clear. There is no pneumothorax. IMPRESSION: No acute cardiopulmonary process. Reviewed, Interpreted and Dictated by Rich Painting III, MD Transcribed by Sheri Rosario Authenticated and . [facility]
--- NOTE | 2023-07-09 08:55 | EXP.ANES.CKL ---
[facility] Disclaimer: The information contained in this section may have been updated after the patient was seen, as this information can be updated by other users. Medical History Abnormal ECG Claudication Dizziness Dyspnea Grade I diastolic dysfunction Hand pain, left Hypertension Left bundle branch block Left elbow fracture Low Back Pain Lumbar disc herniation with radiculopathy Mild aortic regurgitation Mild mitral regurgitation Mild tricuspid regurgitation Palpitations Paroxysmal A-fib Swelling of left lower extremity Surgical History History of cholecystectomy History of partial hysterectomy History of shoulder surgery Status post right knee replacement Family History Other Family history of [place] (myocardial infarction) Family history of kidney disease Hypertension Social History Smoking Status: Never smoker smoking status stop date: 1998 second hand exposure: Yes alcohol intake: never substance use type: denies use current occupational status: employed and other Travel in the last 8 weeks: None household members: spouse housing: house current occupation: [employer] current occupational exposures/hazards: No caffeine: No [facility] Anesthesia Checklist Patient Identification Patient Identification: Arm Band and Verbal (Name & ) Structural Data Admitted From: Home Planned Operative Procedure/s: L ankle stabilization Consent for Planned Operative Procedure(s) Verified: Yes NPO Status Verified Time NPO: 00:00 Additional verifications Anesthesia Reactions: No Hx Blood Transfusions: No Blood Transfusion Reaction: No Airway Assessment Mallampati Score:: Class II C-Spine Mobility Assessed: Yes TMJ Mobility Assessed: Yes Dentition: Good Dentition Neurological Assessment Level of Consciousness: Awake Hx Seizures: No Numbness or tingling in extremities: No Anesthesia Plan Anesthesia Risk discussed: Yes Anesthesia Plan: Verified ASA Class: II Anesthesia Type: General w/block
[2023-07-09 09:24] LABS: 25-OH Vitamin D, Total 37.5 ng/mL (30-100)
[2023-07-09 10:01] LABS: Hemoglobin A1C 5.3 % (4.0-6.0)
[2023-07-09] MEDS: CEFAZOLIN SODIUM 2 GM in 0.9 % SODIUM CHLORIDE 100 ML IV (11:24)
--- NOTE | 2023-07-09 14:27 | XR_ITS ---
FINAL REPORT CLINICAL HISTORY: Post op midfoot fusion COMPARISON: 04/29/2023 FINDINGS: LEFT FOOT: Three views of the left foot were obtained. Splint obscures detail. There are extensive postoperative changes in the medial midfoot with a screw plate, screws, and stable. There is no obvious acute fracture or dislocation. The joint spaces appear intact. There is no soft tissue abnormality. IMPRESSION: Postoperative changes without obvious acute bony abnormality. Reviewed, Interpreted and Dictated by Rich Painting III, MD Transcribed by Maile Matias Authenticated and [facility]
--- NOTE | 2023-07-09 14:27 | XR_ITS ---
FINAL REPORT CLINICAL HISTORY: Post op left ankle stabilization COMPARISON: 04/29/2023 FINDINGS: LEFT ANKLE: Three views of the left ankle were obtained. Splint obscures detail. There is no obvious acute fracture or dislocation. The joint spaces and mortise appear intact. There is no soft tissue abnormality. IMPRESSION: No obvious acute bony abnormality. Reviewed, Interpreted and Dictated by Rich Painting III, MD Transcribed by Maile Matias Authenticated and . [facility]
--- NOTE | 2023-07-09 14:40 | XR_ITS ---
FINAL REPORT CLINICAL HISTORY: STABILIZATION FINDINGS: FLUOROSCOPY LESS THAN 1 HOUR HISTORY: Fluoroscopy guidance. Fluoroscopic guidance was provided for left foot stabilization. 2 spot films were obtained. A total of 59 seconds of fluoroscopy time were used. Total DAP: 1.49 mGy IMPRESSION: As above. Reviewed, Interpreted and Dictated by Rich Painting III, MD Transcribed by Maile Matias Authenticated and [facility]
--- NOTE | 2023-07-09 15:20 | EXP.ANES.I ---
[facility] Anesthesia Record Part I Anesthesia Record I Intake, IV Amount: 1,200 Hydration: Adequate Estimated blood loss (mL): 50 Urine output (mL): 500 Blood Pressure: 148/75 SaO2: 96 Pulse Rate: 94 Airway Patency: Patent Respiratory Rate: 16 Temperature: 97.0 F Patient is:: Drowsy and Oral/Nasal airway Stable to PACU at:: 15:15
[2023-07-09 15:26] LABS: Microscopic,Cath URINE MICROSCOPIC (MICROSCOPIC)
--- NOTE | 2023-07-09 15:27 | EXP.OP.NOTE ---
Date of procedure: 07/09/23 Pre-op Diagnosis:: Left ankle instability Left ankle ganglion cyst Left foot lipoma Left tibialis anterior tendon tear Left foot osteoarthritis Left foot pes planus Post-op Diagnosis:: Same Procedure performed:: Left ankle stabilization/modified Brostr?m Left peroneal tenosynovectomy Repair tibialis anterior tendon Left 1st tarsometataral joint arthrodesis Left navicular cuneiform joint arthrodesis w/tendon advancement Left ankle ganglion cyst excision Left foot exostectomy (tarsal/metatarsal) Left foot lipoma excision Excision/curettage bone cyst with allograft Left 1st MPJ capsulotomy, extensor tendon lengthening Application of amniotic graft Application of posterior splint Surgeon:: Ya Helms DPM ALLERGY AND IMMUNOLOGY SPECIALIST:: Dhiraj Restrepo Anesthesia: GETA and regional (Left popliteal nerve block) Estimated blood loss (mL): 50 Clinical Note:: Patient is a 58-year-old diabetic female who presents with continued left ankle instability arch pain and arthritis. She has had left foot CT, left ankle MRI, nerve conduction study test and x-rays. Conservative care has included: Lace up ankle brace, hightop work boot, modification of activity, modification of shoe gear, RICE protocol, NSAIDs, topical Voltaren gel, oral Mobic/ibuprofen, home stretching, formal physical therapy, taping/strapping, metatarsal pads, toe spacers/sleeve, inserts, power steps. She has failed conservative care and continues to have pain. We discussed surgical intervention. Discussed surgery including left ankle stabilization with ligamentous/peroneal tendon debridement repair versus tenosynovectomy, addressing arthritis including midfoot fusions (tarsometatarsal joint and navicular cuneiform joints), excision of ganglion cyst, possible tendon transfers and gastrocnemius recession. Discussed if ankle instability recurs, may need more aggressive ankle surgery in the future including arthrodesis. However at this time patient has minimal ankle arthritis and range of motion is good. Discussed increased risk of skin/wound healing and infection due to her diabetes history. Discussed increased risk of CRPS due to her history of L3-5 chronic back issues with radiculopathy and newly diagnosed bilateral medial plantar nerve mono neuropathy, left worse than right. The patient has been instructed on the planned procedure, all risk versus benefits of the procedure discussed. These include but are not limited to: bleeding, infection, nerve and blood vessel damage, need for further surgery, delay in healing of soft tissue or bone, failure of bones to heal, non-union, mal-union, failure of the implant, prolonged pain and recovery, CPRS/RSD, DVT/PE and anesthetic complications. No guarantees were given. All questions fully answered. The patient verbalized understanding and agreed to proceed with surgery. Written consent was obtained. Operative findings:: Left ankle ganglion cyst arising from the extensor tendons over to 3 cm round. Cyst was jelly filled. Synovitic fluid noted to the anterior ankle joint. No signs of infection. Left lateral foot lipoma approximately 2 cm round arising from the lateral subtalar joint. Peroneal tendons are intact with no obvious tears. There is tenosynovitis and fluid around the synovial sheaths noted. Tibialis anterior tendon had a 2 cm longitudinal tear at the level of the talonavicular joint. Significant arthritic deformity throughout. Exostosis noted to the dorsal aspect of the medial cuneiform. Bone cyst noted to the medial metatarsal. During the procedure the fibula and the metatarsal cracked. The bone was very soft and places. Will recommend bone density studies to evaluate for osteopenia/osteoporosis. *Modifier: This case took 55-65 minutes longer than normal due to the poor bone quality, cysts, and fracturing of the bone when applying fixation. Operative note:: On this date and time patient was deemed an appropriate surgical candidate. Pre-op regional popliteal and saphenous nerve block performed by anesthesia. With informed consent signed, the patient was taken to the operating theater. Patient positioned supine. General anesthesia induced. Tourniquet was applied to the left mid calf. The left lower extremity was prepped and draped in normal sterile fashion. IV Ancef infused. Left anterior ankle cyst excision: Attention directed to the anterior ankle where cyst was noted over the extensor tendons. Full-thickness incision with care to maintain surgical hemostasis safely retract neurovascular structures. Ganglion cyst was over 3 cm around and arise from the tendon sheath. It was excised and sent to path as a specimen. The cyst was filled with gelatinous clear material. Further dissection down to the level of the ankle joint. There was synovitis noted in the ankle joint that was debrided. Wound was flushed. Incision then closed in a layered fashion with Vicryl and skin closed with nylon. Left foot lipoma excision: Attention was directed to the lateral foot where a separate incision was mapped out over the peroneal tendons extending under the fibula to the talus. Full-thickness dissection performed. There was a lipoma noted over the lateral sinus tarsi. It was excised in total and sent to pathology as a specimen. Left peroneal tenosynovectomy: The peroneal tendons were then identified. No obvious tearing was noted. There was fluid in the peroneal tendon sheath. Synovitic changes noted around the tendon were sharply debrided with 15 blade and forceps. Left modified Brostr?m lateral ankle stabilization, application of amniotic graft: Attention was then directed to the distal fibula where ATFL was noted to be completely torn. On the fibula there were some attenuated fibers, no real ligamentous attachment to the fibula. The CFL was torn. Due to the significant lateral ligament damage and lack of ligament to do a direct tendon repair, secondary repair was performed using an internal brace technique. A 1.8 mm dry tight anchor was inserted into the fibula x 2. Next in accordance with manufacture guidelines and standard technique a 4.75 mm anchor was inserted into the talus under intraoperative fluoroscopy. Foot was then held in a dorsiflexed everted position and a 4.75 knotless anchor was then inserted into the fibula. Upon insertion of the anchor into the fibula the bone was so soft it cracked at the distal end. The anchor did not hold and pulled out. The anchor from the fibula was removed in total, verified on x-ray. Wound was flushed. Next an Arthrex 6.25 swivel lock anchor was inserted into the distal fibula where the 4.75 mm anchor had been previously removed. The bigger anchor held appropriately and adequate tension was noted to the internal brace. Sutures were tightened and the extensor retinaculum was incorporated with the CFL into the repair. Ankle taken through range of motion. Negative anterior drawer post correction. Due to the extensive soft tissue defects, a piece of amniotic graft was cut and applied over the repair site prior to closure. Deep closure with Vicryl and skin was closed with nylon. Left foot exostectomy (tarsal/metatarsal): Tourniquet inflated to 225 mmHg. Attention was directed to the medial foot where an incision was mapped out from the metatarsal extending to the TN joint. Full-thickness dissection with care to maintain surgical hemostasis safely retract neurovascular structures. Extensive arthritic changes and a large dorsal spur noted to the dorsal metatarsal and medial cuneiforms. Rongeur and power rasp used to smooth down and remove the exostosis. Wound was flushed with saline. Left foot excision/curettage bone cyst with allograft: Extensive cystic changes noted to the medial metatarsal. Curette used to remove the metatarsal bone cyst. Wound was flushed with saline. Allograft was inserted intact into the cyst sites. Left first tarsometatarsal joint arthrodesis, navicular cuneiform joint arthrodesis w/tendon advancement: Significant arthritic changes noted to both joints. Cartilage wear appreciated. In standard technique the metatarsal cuneiform joint was distracted, cartilage was resected with saw, osteotome and curette. Similar technique used on the navicular cuneiform to prepare the joint. Wound was flushed with saline. Drill used to fenestrate the subchondral bone plate to the level good healthy bleeding bone. Next allograft was inserted prior to joint fusion due to significant arthritic defects. Under intraoperative fluoroscopy the talonavicular joint was reduced and temporary fixation inserted. The tarsometatarsal joint was then reduced and temporarily fixated. Reduction of flatfoot deformity was appreciated with good [id number] apposition. Next in standard technique a plate was applied over the navicular cuneiform joint and secured with locking screws. [place] were then inserted dorsal and lateral to provide additional compression. Attention was directed to the first metatarsal cuneiform joint where cannulated screws were inserted. Upon insertion of the screw the metatarsal dorsally fractured due to the poor quality of the bone. A second 4 oh cannulated screw was then inserted without complication. [place] were used to reinforce the fusion sites. Deep closure with Vicryl. Skin was closed with nylon. Repair tibialis anterior tendon: Next attention was directed to the tibialis anterior tendon which had a 2 cm longitudinal tear noted at the level of the talonavicular joint. 15 blade used to debride the tear. Nylon was used to reapproximate the tendon and over and over baseball fashion. Once the tendon was repaired it was tightened and advanced into the navicular distally. The remaining piece of the amniotic graft was then applied over the tendon to help it heal and prevent scarring. Left 1st MPJ capsulotomy, extensor tendon lengthening: Intraoperative fluoroscopy was utilized to check position of fixation. Adequate reduction of deformity noted with appropriate fixation. First MPJ alignment was normal however some residual distal hallux valgus was noted. A separate incision was made over the medial dorsal first MPJ. A capsulotomy was performed and tightened with Vicryl which did reduce the hallux valgus deformity. There was some tightness to the extensor tendon kaleigh the toe in a dorsiflexed position. 15 blade was used to make a Zi lengthening in the extensor tendon which did alleviate the extensor contraction. Wound was flushed. Vicryl used to repair deep tissue. Nylon used to close skin. Application of posterior splint: The tourniquet was deflated at 120 minutes and immediate hyperemic response was noted to the digits. The wounds were cleansed. Xeroform applied to the incisions, dry sterile dressing was then applied followed by a below knee modified Up posterior splint. The patient was awoken from anesthesia and transfer to recovery with vital signs stable and neurovascular status intact. Patient appeared to tolerate procedure and anesthesia well. Materials: Vilex AlphaLock NC plate 28mm with 3.5mm locking screws x6, 5cc Abhi DBM fibers x2, 4.0mm cannulated screw x2, [id number] staple x1, [id number] staple x2, Amniotic graft x1 (4x4cm) Parcus 1.8mm draw tight anchor x2, 4.75 twist anchor, 4.75 knotless anchor (removed), 2.1mm suture tape Arthrex 6.25 swive lock anchor Discharge/Plan: Patient is to maintain splint clean dry and intact. Polar pack/ice behind the knee and elevate on foam ramp or two pillows. Non weight bearing with crutches and RKS. Rx given for Zofran and Gabapentin. Obtain post op films, 3 views left foot and ankle. Follow up in one week. Tourniquet time (min): 120 Condition: stable Disposition: same day Specimens:: Left ankle cyst Left foot lipoma Left talus bone Complications:: None
[2023-07-09 16:01] LABS: Appearance,Urine/Cath CLEAR (Clear); Bilirubin,Cath Negative (Negative); Blood, Urine/Cath Negative (Negative); Color,Urine/Cath YELLOW (Yellow); Glucose,Urine/Cath (UA) Negative (Negative); Ketones,Urine/Cath Negative (Negative); Leukocyte Esterase,Cath Negative (Negative); Nitrate,Cath Negative (Negative); Protein,Urine/Cath Negative (Negative); Urobilinogen,Cath 0.2 EU/dl (0.2)
--- NOTE | 2023-07-10 13:00 | P.PNANES_ITS ---
[facility] Anesthesia Record Part II Anesthesia Record Part II Discharge Time: 15:45 Destination: Surgical Day Care (OP Surgery) PACU nurse assessment reviewed?: Yes Patient Condition:: Good Anesthesia Complications:: None Swallowing reflex intact?: Yes Airway Patency: Patent Cyanosis?: No Blood Pressure: 118/75 SaO2: 100 Respiratory Rate: 18 Pulse Rate: 88 Temperature: 97.6 F Mental Status: Alert & Oriented Pain level:: 0 Nausea and/or vomitting:: None Intake, IV Amount: 0 Hydration: Adequate
[2023-07-10 13:01] VITALS: BP 118/75; PULSE 88; RESP 18; TEMP 36.4; O2SAT 100
== END 2023-07-09 16:16 | disposition home or self-care (01) ==
PROVIDERS: PCP Family Medicine; Visit Provider Podiatrist
PROC: (CPT 27626; principal; 2023-07-09 09:15)
DX: M25.372 Other instability, left ankle (principal); E55.9 Vitamin D deficiency, unspecified; Z79.899 Other long term (current) drug therapy; I48.0 Paroxysmal atrial fibrillation; M67.88 Other specified disorders of synovium and tendon, other site; M76.822 Posterior tibial tendinitis, left leg; M67.472 Ganglion, left ankle and foot; M79.672 Pain in left foot; M25.472 Effusion, left ankle; M19.072 Primary osteoarthritis, left ankle and foot; D17.79 Benign lipomatous neoplasm of other sites
CPT/HCPCS: 27626; 28090; 27630; 27696; 28737; 36415; 71045; 73610; 73620; 73630; 81001; 82306; 83036; 96374; C1713; C1776; J2405

== ENCOUNTER 2023-08-11 08:54 | Outpatient (CLI) | payer BC, OTHER, SELFPAY ==
--- NOTE | 2023-08-11 08:55 | XR_ITS ---
FINAL REPORT CLINICAL HISTORY: Other Specified disorders of bone density COMPARISON: None FINDINGS: Using L1-4, the bone mineral density of the spine is 0.873 g/cm2, corresponding to T-score of -1.6 which is consistent with low bone density. Using the left hip, the bone mineral density of the femoral neck is 0.662 g/cm2, corresponding to a T-score of -2.3 which is consistent with low bone density. Using the right hip, the bone mineral density of the femoral neck is 0.553 g/cm2, corresponding to a T-score of -2.7 which is consistent with osteoporosis. FRAX not reported because some T-score at or below -2.5. NOTE: T-score: Standard deviation compared with peak bone mass of young adult mean. *Following the recommendations of the International Society of Bone densitometry, classification of hip BMD is based on the lower of two T-scores; total hip or femoral neck. IMPRESSION: Diminished bone mineral density consistent with osteoporosis. Reviewed, Interpreted and Dictated by Rich Painting III, MD Transcribed by Maile Matias Authenticated and [facility]
--- NOTE | 2023-08-11 08:55 | XR_ITS ---
FINAL REPORT CLINICAL HISTORY: post foot/ankle surgery COMPARISON: 07/09/2023 FINDINGS: LEFT ANKLE: Three views of the left ankle were obtained. There are postoperative changes in the medial midfoot. There is no acute fracture or dislocation. There are mild and moderate degenerative changes. There is medial soft tissue swelling with soft tissue calcifications. IMPRESSION: Postoperative and degenerative changes without acute bony abnormality. Reviewed, Interpreted and Dictated by Rich Painting III, MD Transcribed by Maile Matias Authenticated and [facility]
--- NOTE | 2023-08-11 08:55 | XR_ITS ---
FINAL REPORT CLINICAL HISTORY: post foot/ankle surgery COMPARISON: 07/09/2023 FINDINGS: LEFT FOOT: Three views of the left foot were obtained. There are postoperative changes in the medial midfoot. There is a screw plate with multiple screws and multiple romero. Osteopenia is noted in the medial cuneiform and medial navicular which are poorly visualized. There is callus formation in the medial midfoot. There is medial soft tissue swelling. There is no definite acute bony abnormality. There is no soft tissue abnormality. IMPRESSION: Postoperative changes as above without definite acute bony abnormality. Reviewed, Interpreted and Dictated by Rich Painting III, MD Transcribed by Maile Matias Authenticated and . [facility]
== END 2023-08-11 23:59 ==
LOC: RAD 08:55
PROVIDERS: PCP Family Medicine; Visit Provider Podiatrist
DX: M81.0 Age-related osteoporosis without current pathological fracture (principal); M79.672 Pain in left foot; M25.572 Pain in left ankle and joints of left foot; Z98.890 Other specified postprocedural states
CPT/HCPCS: 73610; 73630; 77080

== ENCOUNTER 2023-08-25 09:24 | Outpatient (CLI) | payer BC, OTHER, SELFPAY ==
--- NOTE | 2023-08-25 09:29 | XR_ITS ---
FINAL REPORT CLINICAL HISTORY: Postoperative. x 6 weeks..pain COMPARISON: 08/11/2023 FINDINGS: LEFT FOOT: Three views of the left foot were obtained. There are postoperative changes in the medial midfoot with screw plate, multiple screws, and multiple ormero. The visualized hardware is stable. There is osteopenia noted in the medial cuneiform and medial navicular which are poorly visualized. There appears to be medial subluxation of the navicular with deformity. There is no acute fracture or dislocation. There is no acute soft tissue abnormality. IMPRESSION: Postoperative changes without acute bony abnormality. Findings are stable compared to prior. Reviewed, Interpreted and Dictated by Rich Painting III, MD Transcribed by Maile Matias Authenticated and [facility]
== END 2023-08-25 23:59 ==
LOC: RAD 09:24
PROVIDERS: PCP Family Medicine; Visit Provider Podiatrist
DX: M79.672 Pain in left foot (principal)
CPT/HCPCS: 73630

== ENCOUNTER 2023-09-22 08:00 | Outpatient (RCR) | payer BC, OTHER, SELFPAY ==
--- NOTE | 2023-08-13 12:52 | HMH.PTOPWND ---
Rehab Outpt Wound Evaluation Rehab OP Wound Evaluation Start: 08/13/23 12:35 Freq: Status: Active Protocol: Document 08/13/23 12:36 [email or web address] (Rec: 08/13/23 12:52 PHORSHIREEN [id number]) E-signed By Collin Echevarria, PT Subjective/History History History This is the initial PT eval for Omayra Tran, 58 yowf who presents with c/o L LE edema for ~ 7 yrs, but worse x 1 mo. She had L foot surgery performed 07/09/23 with slower than expected healing and increased post-op edema. She reports pain with prolonged dependent positioning after returning her leg to a propped position. She has PMH of HTN, partial hysterectomy, CCY, and R knee arthroscopy. Subjective Subjective She reports her pain at 8/10 at worst. 2+ pitting edema to the L foot and lower leg. blanchable erythema throughout the L foot. Post-surgical wounds have not fully healed with brown/yellow eschar noted . New diagnosis of cancer in past 12 No months? Lymphedema Eval Classification of Lymphedema Secondary Lymphedema Yes Stemmer's sign Stemmer's Sign yes Stage of Lymphedema Lymphedema stages Stage II (Pitting edema, increased fibrosis w/ decreased pitting) Skin Changes Dry Skin Yes Skin Folds Yes Redness Yes Wounds Yes Discoloration of Skin Yes Other Changes Yes Pain Scale Pain Scale (0-10) 8 Affected Extremities Areas Affected by Lymphedema/Edema Left Lower Extremity Manual Lymphatic Drainage Treatment Area MLD Treatment Area Left Lower Extremity Wound Problems/Impairments Impairments Problems/Impairmments Palpation Tenderness,Impaired Range of Motion,Impaired Strength,Impaired Endurance, Impaired Transfers,Impaired Gait Pattern,Impaired Walking, Impaired Standing,Impaired Sitting,Impaired Driving, Impaired Dressing,Impaired Shower/Bathing,Impaired Household Care,Impaired Stair Climbing,Impaired Incline Stepping,Impaired Stepping on Uneven Surface,Impaired Recreational Activities, Increased Edema,Lymphedema Present,Wound Care Needs, Subjective C/O Pain,Impaired Self Care/Self Management Prognosis Rehab Potential Good Clinical Impression Consistent with Diagnosis Yes Short Term Goals Number of Weeks 2 Decreased Palpation Tenderness Yes: 1/4 L foot Increase Ability to Sit Yes: > 1 hr without pain Decrease Edema Yes: 1+ pitting edema Decrease Subjective C/O Pain Yes: 6/10 at worst Patient to Understand Lymphedema Yes Treatment and Exercises Decrease Girth Measurments by (cm) Yes: L LE total by 5 cm Retirement Goals Number of Weeks 4 Decreased Palpation Tenderness Yes: 0/4 L foot Improve Ability For Household Care Yes Improve Tolerance to Work Activities Yes: without pain Decrease Edema Yes: no pitting edema Decrease Lymphedema Yes Decrease Subjective C/O Pain Yes: 09/01 Patient to be Ind w/ HEP Yes Patient to Adhere Lymphedema Precautions Yes Decrease Girth Measurments by (cm) Yes: L LE total by 15 cm Outpatient Therapy Plan of Care Treatment Plan May Include Therapeutic Exercise Including Home Yes Exercise Program Manual Therapy Techniques Yes Neuromuscular Re-education Yes Therapeutic Activities to Return to Yes Previous Functional/Work Level Gait Training Yes ADL/Self Care Education Yes Thermal Modalities Yes Electrical Stimulation Yes Orthotics/Bracing/Splinting Yes Vasopneumatic Compression Pump Yes Manual Lymphatic Drainage Yes Eval/Re-Eval Yes Frequency Times per week 2 Duration Number of Weeks 4 Addendums This patient is a candidate for social No or vocational rehab? Patient/Guardian verbally acknowledges Yes understanding of treatment program and consents to further treatment? Patient/Guardian verbally acknowledges Yes understanding of diagnosis, prognosis and goals for treatment? Eval Complexity PT Charges 28433 - High Complexity PHYSICIAN CERTIFICATION: I certify the specified therapy services for Omayra Tran are required, authorized, and reviewed every 30 days.
--- NOTE | 2023-09-10 08:52 | HMH.RHREAS ---
Rehab Reassessment Rehab OP Re-assessment Start: 08/13/23 12:35 Freq: Status: Active Protocol: Document 09/10/23 08:46 ERASMO (Rec: 09/10/23 08:52 PHORNE [id number]) E-signed By Collin Echevarria, PT [facility] Wound Assessment Tool Assessment Wound size 1=Length x Width <4 sq cm Wound depth 4=Obscured by necrosis Wound edges 3=Well-defined, not attached to wound base Wound undermining 1=None present Necrotic tissue type 3=Loosely adherent yellow slough Necrotic tissue amount 4=>50% and <75% of wound covered Exudate type 3=Serosanguineous: thin, watery, pale red/pink Exudate amount 2=Scant, wound moist but no observable exudate Skin color surrounding wound 1=[place] or normal for ethnic group Peripheral tissue edema 5=Crepitus and/or pitting edema extends > or = 4 cm around wound Peripheral tissue induration 1=None present Granulation tissue 4=[place], &/or dull, dusky red & /or fills < or = 25% of wound Epithelialization 5= < 25% wound covered Wound assessment total score 37 Rehab Re-assessment Subjective Subjective Pt reports less pain overall, but continues to have difficulty with WBing in her cam walker due to edema and discomfort. Objective Objective Notes L medial dorsal foot wound: L= 2.2 cm, W= 1.0 cm, D= 0.2 cm. Edema 1+ pitting edema from L ankle throughout L foot. Less overall, but persistent in the foot, especially plantar surface. Assessment Progress Assessment Progressing as Expected Assessment Notes Wound appears more healthy with improved necrotic tissue from black eschar to yellow slough. Edema is improved, but remains throughout the L foot . Decreased ambulation due to edema and pain. She continues to need skilled intervention to return to prior level of function. Patient goals met ST,3,4,[address],6 LT,2,3,4,5,6,7 ,8,9 Plan Plan Continue per initial POC. Increase compression as tolerated. Frequency of Therapy 2 x/wk Duration of therapy 4 wks Time and Billing Re-Eval Time 11 Re-Eval Billing Units 1 PHYSICIAN CERTIFICATION: I certify the specified therapy services for Omayra Tran are required, authorized, and reviewed every 30 days.
== END 2023-09-22 08:05 | disposition home or self-care (01) ==
LOC: PT 08:00
PROVIDERS: Visit Provider Podiatrist
DX: R60.0 Localized edema (principal)
CPT/HCPCS: 97140; 97163; 97164

== ENCOUNTER 2023-09-22 09:59 | Outpatient (CLI) | payer BC, OTHER, SELFPAY ==
[2023-09-22 11:48] LABS: Anion Gap 10.4 mEq/L (5-15); Blood Urea Nitrogen 14 mg/dl (7-17); Calcium 10.2 mg/dl (8.4-10.2); Carbon Dioxide 30 mmol/L (22.0-30.0); Chloride 105 mmol/L (98-107); Estimated Glomerular Filt Rate 86 ml/min (>60); GFR (African American) 104 ML/MIN (>60); Glucose 87 mg/dl (74-100); Potassium 4.4 mmoL/L (3.5-5.1); Sodium 141 mmol/L (136-145)
== END 2023-09-22 23:59 | disposition home or self-care (01) ==
LOC: LAB 09:59
PROVIDERS: PCP Family Medicine; Visit Provider Physician Assistant
DX: R00.2 Palpitations (principal); I48.0 Paroxysmal atrial fibrillation
CPT/HCPCS: 36415; 80048; 83735; 93270

== ENCOUNTER 2023-10-01 08:00 | Outpatient (CLI) | payer BC, OTHER, SELFPAY ==
--- NOTE | 2023-10-01 08:03 | XR_ITS ---
FINAL REPORT CLINICAL HISTORY: Foot Pain, post op COMPARISON: 08/25/2023 FINDINGS: Left foot Three views were obtained. The bones are osteopenic. Postoperative changes are seen of the medial midfoot with screw plate and multiple screws and romero. There is medial subluxation of the navicular. The bony alignment is normal. There is a plantar calcaneal spur. IMPRESSION: Stable postoperative changes. Reviewed, Interpreted and Dictated by Rich Painting III, MD Transcribed by Sheri Rosario Authenticated and [facility]
== END 2023-10-01 23:59 | disposition home or self-care (01) ==
LOC: RAD 08:01
PROVIDERS: PCP Family Medicine; Visit Provider Podiatrist
DX: M79.672 Pain in left foot (principal)
CPT/HCPCS: 73630

== ENCOUNTER 2023-10-20 06:38 | Outpatient (CLI) | payer BC, OTHER, SELFPAY ==
--- NOTE | 2023-10-20 06:44 | CT_ITS ---
FINAL REPORT TECHNIQUE: Thin section axial CT images with coronal and sagittal reformats were performed. This study was performed with techniques to keep radiation doses as low as reasonably achievable (ALARA). Individualized dose reduction techniques using automated exposure control or adjustment of mA and/or kV according to the patient''s size were employed. CLINICAL HISTORY: evaluate for fusion non-union FINDINGS: Extensive streak artifact from fusion hardware overlying the dorsum of the foot. Intertarsal and tarsometatarsal joint fusion is seen. There is extensive osteopenia likely related to disuse. There are postoperative changes in the distal fibula. Mortise is intact. There is no evidence of hardware loosening. There are no fractures. There are no masses or fluid collections. There are no soft tissue abnormalities. IMPRESSION: Postoperative changes. Osteopenia. No evidence of hardware loosening. Reviewed, Interpreted and Dictated by Bean Prescott MD Transcribed by Елена Dickson Authenticated and . [facility]
== END 2023-10-20 23:59 | disposition home or self-care (01) ==
LOC: RAD 06:39
PROVIDERS: PCP Family Medicine; Visit Provider Podiatrist
DX: M79.672 Pain in left foot (principal); Z98.890 Other specified postprocedural states
CPT/HCPCS: 73700

== ENCOUNTER 2023-12-02 09:00 | Outpatient (RCR) | payer BC, OTHER, SELFPAY ==
--- NOTE | 2023-09-15 12:31 | HMH.PTOPEV ---
PT Outpatient Evaluation Rehab PT Outpatient Evaluation Start: 09/15/23 11:03 Freq: Status: Active Protocol: Document 09/15/23 11:03 PDESEROUX (Rec: 09/15/23 12:30 PDESEROUX [id number]) E-signed By Chris Murphy, PT Outpatient Therapy Subjective History Subjective History Pt. is a 58 year old female who presents to [facility] Out[facility] in [place] for the initial evaluation this date(09/15/23) w/ c/o chronic and constant LLE ankle/ft. post-surgical P! , edema, and instability S/P LLE ankle/ft. on 07/09/23. Pt. reported having two tendons repaired and a reconstruction in her foot. Pt. reports having a chronic history of severe osteoarthritis, collapsed arch, and a x4 ankle fx.'s in the past. Pt. reports, supposed to be walking on it by now. Pt. reports she is unable to ambulate secondary to P!, therefore, pt. gets around on scooter in boot. Pt. reports being instructed by Surgeon to progress w/ Physical Therapy regarding the instability and postoperative status. Pt. reports having 4 weeks of wound care and lymphedema treatment post surgery secondary to increased edema and wound. Pt. RTMD 09/22/23. Current medications include Losartan, Furosemide, Estradiol, Methocarbamol, Ibuprofen, Tylenol, Bisoprolol , DHEA. PMH includes L bundle branch block, irregular cardiac rhythm, LUE elbow radial head fx., Cholecystectomy, Hysterectomy, S/P RUE shldr. ATS, RUE CTS, Hypertension, hx. of DM-II, S/ P RLE knee chondroplasty, and 60% loss of sensation of RLE compared to LLE d/t history of LBP!. New diagnosis of cancer in past 12 No months? Chief Complaint Pain,Stiff,Swelling,Gives out/ Unstable,Paresthesia,Weakness, Other Symptom Type Ache,Throb,Sharp,Stabbing, Burning,Numbness,Tingling, Shooting Symptoms Relieved By Rest/Positioning,Ice,Brace/ Support,Prescription Meds Symptoms Aggravated By Standing,Bending/Stooping, Physical Activity,Walking Prior Functional Limitations None Current Functional Limitations Housework,Standing,Squatting, Recreation Activity,Walking, Stairs,Balance Symptom Description Constant and Continuous, Intermittent,Activity Dependent Level of pain today (0-10) 7 Pain scale - at its best (0-10) 6 Pain scale - at its worst (0-10) 8 Ankle/Foot Eval Gait Observation General Gait Pattern Observation Antalgic Gait,Decrease Weight Bear (L),Decrease Stride Lngth (R) Assistive Device Ambulation Assistive Device Axillary Crutches Palpation Tenderness left Ankle/Foot Palpation Findings Tenderness,Trigger Point Ankle/Foot Palpation Overall Comment grade 4 +TTP to assessment, post. tib., peroneals, PF, achilles, gastroc mm ATF TTP positive PTF TTP positive CF TTP positive Deltoid ligament TTP positive ROM Ankle/Foot Dorsiflexion w/Knee Extended +30 Active Range Motion (degrees) Ankle/Foot Dorsiflexion w/Knee Extended +5 Passive Range (degrees) Ankle/Foot Plantar Flexion Active Range 50 of Motion (degrees) Ankle/Foot Eversion Active Range of 4 Motion (degrees) Ankle/Foot Eversion Passive Range of 11 Motion (degrees) Ankle/Foot Inversion Active Range of 9 Motion (degrees) Ankle/Foot Inversion Passive Range of 14 Motion (degrees) Ankle/Foot ROM Limitations Soft Tissue Tightness,Muscle Weakness,Pain Great Toe ROM Limitations Soft Tissue Tightness,Pain Accessory Movements Ankle Accessory Movements that Elicit Fibular Dorsal [place],Fibular Symptoms Ventral [place],Calcaneocuboid [place],Talar Distraction,Talar Compression,Talus Dorsal [place] ,Talus Ventral [place] Toe Accessory Movement that Elicit MTP Dorsal [place],MTP Plantar Symptoms [place],MTP Medial [place],MTP Lateral [place] MMT left Ankle Dorsiflexion Strength Grade 3+ Fair+ Ankle Plantarflexion Strength Grade 3+ Fair+ Foot Eversion Strength Grade 3+ Fair+ Foot Inversion Strength Grade 3+ Fair+ Ankle Dorsiflexors Muscle Tone Severe Hypertonicity Description Special Tests Ankle Anterior Drawer Test Negative Left Ankle Inversion (supination) Test Negative Left Ankle Posterior Drawer Test Negative Left Neuro tests normal sensation to monofilament Yes decrease sensation to monofilament Yes: dorsal surface of foot fito-surgical incision Outpatient Therapy Assessment Impairments Problems/Impairmments Palpation Tenderness,Impaired Range of Motion,Impaired Strength,Impaired Endurance, Impaired Transfers,Impaired Gait Pattern,Impaired Walking, Impaired Standing,Impaired Household Care,Impaired Stair Climbing,Impaired Incline Stepping,Impaired Stepping on Uneven Surface,Impaired Squatting,Impaired Recreational Activities, Impaired Work Activities, Impaired Balance,Increased Edema,Lymphedema Present,Wound Care Needs,Subjective C/O Pain,Impaired Self Care/Self Management Prognosis Rehab Potential Good Comment w/ HEP compliancy Clinical Impression Consistent with Diagnosis Yes Consistent with S/P LLE ankle/ft. Short Term Goals Number of Weeks 2 Decreased Palpation Tenderness Yes: grade 1-2 +TTP to TTP assessment above Decrease Subjective C/O Pain Yes: worse:10/01 Patient to be Ind w/ HEP Yes Jail Goals Number of Weeks 6-8 Decreased Palpation Tenderness Yes: grade 1+ TTP To TTP assessment above Increase Range of Motion Yes: LLE ankle/ft./great toe > 85% norms AROM grossly Increase Strength Yes: 4+ to 5/5 LLE ankle/ft./ great toe MMT scores grossly Improve Gait Pattern without Assistive Yes Device Increase Ability to Walk Yes Increase Ability to Stand Yes Improve Ability to Dress Self Yes Improve Ability to Shower/Bathe Self Yes Improve Ability For Household Care Yes Improve Ability to Climb Stairs Yes Improve Incline Stepping Ability Yes Improve Ability to Step on Uneven Yes Surfaces Improve Balance Yes: denies falls secondary to LLE ankle/ft. instability Improve LEFI Score Yes Decrease Edema Yes Decrease Subjective C/O Pain Yes: worse:-08/01 Patient to be Ind w/ Advanced HEP Yes Outpatient Therapy Plan of Care Treatment Plan May Include Therapeutic Exercise Including Home Yes Exercise Program Manual Therapy Techniques Yes Neuromuscular Re-education Yes Therapeutic Activities to Return to Yes Previous Functional/Work Level Gait Training Yes ADL/Self Care Education Yes Dry Needling Yes Thermal Modalities Yes Electrical Stimulation Yes Ultrasound/Phonophoresis Yes Iontophoresis Yes Vasopneumatic Compression Pump Yes Massage Yes Manual Lymphatic Drainage Yes Wound Care Yes Eval/Re-Eval Yes Aquatic Therapy No Frequency Times per week 2-3 Duration Number of Weeks 6-8 Addendums This patient is a candidate for social No or vocational rehab? Patient/Guardian verbally acknowledges Yes understanding of treatment program and consents to further treatment? Patient/Guardian verbally acknowledges Yes understanding of diagnosis, prognosis and goals for treatment? Eval Complexity PT Charges 10146 - Moderate Complexity Shoulder/Elbow Eval Shoulder Objective Measurements Elbow Objective Measurements PHYSICIAN CERTIFICATION: I certify the specified therapy services for Omayra Jill Glendyyosef are required, authorized, and reviewed every 30 days.
== END 2023-12-14 10:29 | disposition home or self-care (01) ==
LOC: PT 09:00
PROVIDERS: Visit Provider Podiatrist
DX: M25.372 Other instability, left ankle (principal); Z98.890 Other specified postprocedural states
CPT/HCPCS: 97010; 97014; 97035; 97110; 97112; 97140; 97163; 97164; 97530; G0283

== ENCOUNTER 2023-12-31 14:19 | Outpatient (CLI) | payer OTHER, SELFPAY ==
--- NOTE | 2023-12-31 14:21 | XR_ITS ---
FINAL REPORT CLINICAL HISTORY: postop FINDINGS: LEFT FOOT Three views of the left foot were obtained. There are postoperative changes of the medial midfoot with multiple screws, romero and a screw plate. There is a pes planus deformity. Moderate degenerative changes are seen. There is a small plantar calcaneal spur. Soft tissue swelling is noted of the midfoot. IMPRESSION: Postoperative changes as above. Reviewed, Interpreted and Dictated by Rich Painting III, MD Transcribed by Елена Dickson Authenticated and [facility]
== END 2023-12-31 23:59 | disposition home or self-care (01) ==
LOC: RAD 14:19
PROVIDERS: PCP Family Medicine; Visit Provider Podiatrist
DX: M79.672 Pain in left foot (principal); T81.49XA Infection following a procedure, other surgical site, initial encounter; Z98.890 Other specified postprocedural states
CPT/HCPCS: 73630

== ENCOUNTER 2024-01-27 15:02 | Outpatient (CLI) | payer OTHER, SELFPAY ==
--- NOTE | 2024-01-27 15:02 | MR_ITS ---
FINAL REPORT CLINICAL HISTORY: Foot Pain FINDINGS: Multiplanar MR imaging of the left foot was performed without contrast. Motion artifact is noted on many of the images which decreases the sensitivity of the study. Postoperative changes are seen at the medial midfoot which causes some magnetic susceptibility artifact in this region. Degenerative changes are noted of the midfoot. There is multifocal mild bone marrow edema in the midfoot. A focus of abnormal signal is seen in the anterior process of the calcaneus well-visualized on sagittal T1 and T2 images 19, worrisome for a small nondisplaced fracture in this region with adjacent bone marrow edema. Postoperative changes are seen involving the lateral malleolus and lateral talus. There is tendinosis and small partial tears of the distal tibialis anterior tendon. A small intrasubstance tear is seen of the distal Achilles tendon. There is mild peroneus longus tenosynovitis. The musculature is intact. The plantar aponeurosis is intact. No soft tissue mass or cyst is identified. IMPRESSION: Postoperative changes in the medial midfoot and lateral ankle. Findings worrisome for a small nondisplaced fracture of the anterior process of the calcaneus. Distal tibialis anterior tendinosis with small partial tears. Small intrasubstance tear of the distal Achilles tendon. Mild peroneus longus tenosynovitis. Authenticated and [facility]
== END 2024-01-27 23:59 | disposition home or self-care (01) ==
LOC: RAD 15:02
PROVIDERS: PCP Nurse Practitioner; Visit Provider Nurse Practitioner
DX: M79.673 Pain in unspecified foot; M25.372 Other instability, left ankle; M84.375S Stress fracture, left foot, sequela
CPT/HCPCS: 73718

== ENCOUNTER 2024-03-07 11:03 | Outpatient (CLI) | payer OTHER, SELFPAY | END 2024-03-07 23:59 | disposition home or self-care (01) | LOC: LAB.DROPOF 03-08 11:03 | PROVIDERS: PCP Family Medicine; Visit Provider Family Medicine | DX: R39.9 Unspecified symptoms and signs involving the genitourinary system (principal) | CPT/HCPCS: 87086 ==

== ENCOUNTER 2024-05-05 12:11 | Outpatient (CLI) | payer OTHER, SELFPAY ==
--- NOTE | 2024-05-05 12:19 | XR_ITS ---
FINAL REPORT CLINICAL HISTORY: foot pain -- foot surgery earlier this year FINDINGS: LEFT FOOT Three views of the left foot demonstrate no acute fracture or dislocation. There are postoperative changes of the medial midfoot with screws and sideplate. A staple is present. There are mild degenerative changes. There is a plantar calcaneal spur noted. The visualized joint spaces are normally aligned. The soft tissues are unremarkable. IMPRESSION: Degenerative and postoperative changes without acute bony abnormality. Reviewed, Interpreted and Dictated by Rich Painting III, MD Transcribed by Елена Dickson Authenticated and . [facility]
== END 2024-05-05 23:59 | disposition home or self-care (01) ==
LOC: RAD 12:15
PROVIDERS: PCP Family Medicine; Visit Provider Podiatrist
DX: M79.672 Pain in left foot (principal)
CPT/HCPCS: 73630

== ENCOUNTER 2024-08-11 08:47 | Outpatient (CLI) | payer OTHER, SELFPAY ==
--- NOTE | 2024-08-11 08:51 | XR_ITS ---
FINAL REPORT CLINICAL HISTORY: left foot pain, non healing from surgery last June, possible cyst? COMPARISON: 05/05/2024 FINDINGS: LEFT FOOT: Three views of the left foot once again demonstrate extensive postoperative change of the medial midfoot. There is chronic widening between the middle and lateral cuneiforms. Osteopenia is present. No bone destruction is evident. No significant change is noted since the prior exam of 05/05/2024. The joint spaces appear otherwise normal. IMPRESSION: Extensive postoperative change of the medial midfoot, stable since the prior exam of 05/05/2024. Reviewed, Interpreted and Dictated by Dyana Mcdermott MD Transcribed by Sheela Walter Authenticated and [facility]
--- NOTE | 2024-08-11 08:51 | XR_ITS ---
FINAL REPORT CLINICAL HISTORY: left ankle pain COMPARISON: None FINDINGS: LEFT ANKLE: Three views of the left ankle show no evidence of acute displaced fracture or dislocation of the visualized bony architecture. Osteopenia is noted. Mild degenerative changes are present. Postoperative hardware is noted overlying the midfoot. IMPRESSION: Unremarkable exam. Reviewed, Interpreted and Dictated by Dyana Mcdermott MD Transcribed by Sheela Walter Authenticated and [facility]
== END 2024-08-11 23:59 | disposition home or self-care (01) ==
LOC: RAD 08:48
PROVIDERS: PCP Family Medicine; Visit Provider Podiatrist
DX: M25.572 Pain in left ankle and joints of left foot (principal); Z51.89 Encounter for other specified aftercare; S91.302A Unspecified open wound, left foot, initial encounter; B96.89 Other specified bacterial agents as the cause of diseases classified elsewhere; E11.41 Type 2 diabetes mellitus with diabetic mononeuropathy
CPT/HCPCS: 73610; 73630; 87070; 87077; 87205

== ENCOUNTER 2024-08-22 14:42 | Outpatient (CLI) | payer OTHER, SELFPAY | END 2024-08-22 23:59 | disposition home or self-care (01) | LOC: LAB.DROPOF 08-23 13:26 | PROVIDERS: PCP Nurse Practitioner Family; Visit Provider Nurse Practitioner Family | DX: J02.9 Acute pharyngitis, unspecified (principal) | CPT/HCPCS: 87070 ==

== ENCOUNTER 2024-09-05 15:16 | Outpatient (CLI) | payer OTHER, SELFPAY ==
--- NOTE | 2024-09-05 15:19 | MM_ITS ---
PROCEDURE INFORMATION: Exam: MG Bilateral Screening 3D Mammography Exam date and time: 09/05/2024 3:24 PM Age: 59 years old Clinical indication: Screening examination TECHNIQUE: Imaging protocol: Bilateral Screening tomosynthesis and 2D mammography including computer-aided detection (CAD) when performed. COMPARISON: 1. MG SCREEN MAMMO W CAD BILAT 09/14/2023 3:39 PM 2. MG SCREEN MAMMO W CAD BILAT 01/13/2022 1:07 PM FINDINGS: MAMMOGRAPHY: Breast composition: There are scattered areas of fibroglandular density. Mass: No suspicious masses. Architectural distortion: None. Calcifications: No suspicious calcifications. Asymmetric density: None. Skin thickening: None. Axillary adenopathy: None. IMPRESSION: No mammographic evidence of malignancy. Annual screening is recommended unless otherwise clinically indicated. ASSESSMENT: BI-RADS Category 1: Negative.
--- OUTSIDE RECORDS SUMMARY | 2024-09-05 15:19 | XMS_ITS | Data Portability ---
Author Organization [facility] Address [address] [place] [address] Assessment No assessment recorded. Plan of Treatment Reminders Order Date Submit Date Provider Last Modified By Organization Details Last Modified Time Details Appointments None recorded. Lab progestero ne, serum 2022 023 [facility], [address], [place], [address], 3 10:51:57 estradiol, serum 2022 023 [facility], [address], [place], [address], 3 10:51:53 lh + FSH, serum 2022 023 [facility], [address], [place], [address], 3 10:51:52 dhea-sulfa te, serum 2022 023 [facility], [address], [place], [address], 3 10:51:54 testostero ne, total, serum 2022 023 jkiskaden [facility], [address], [place], [address], 3 09:51:05 lipid panel, serum 2022 023 [facility], [address], [place], [address], 3 10:51:50 C reactive protein, QN, serum or plasma 2022 023 [facility], [address], [place], [address], 3 10:51:57 ESR (erythrocy te sedimentat ion rate), blood 2022 023 [facility], [address], [place], [address], 3 10:51:56 YULIYA (antinucle ar antibodies ) screen, serum 2022 023 [facility], [address], [place], [address], 3 10:51:56 rf (rheumatoi d factor) iga, serum 2022 023 [facility], [address], [place], [address], 3 10:51:54 ccp (cyclic citrullina jeison peptide) iga+igg, serum 2022 023 [facility], [address], [place], [address], 3 10:51:55 uric acid, serum or plasma 2022 023 [facility], [address], [place], [address], 3 10:51:55 vitamin B12 + folate, serum or blood 2022 023 [facility], [address], [place], [address], 3 10:51:51 iron + TIBC + ferritin, serum 2022 023 [facility], [address], [place], [address], 3 10:51:49 CBC w/ auto diff 2022 023 [facility], [address], [place], [address], 3 10:51:58 HbA1c (hemoglobi n A1c), blood 2022 023 [facility], [address], [place], [address], 3 10:51:52 CMP, serum or plasma 2022 023 [facility], [address], [place], [address], 3 10:51:49 thyroid panel, serum 2022 023 [facility], [address], [place], [address], 3 10:51:50 vitamin D, 25-hydroxy , total, serum 2022 023 [facility], [address], [place], [address], 3 10:51:53 culture, urine 2022 023 [facility], [address], [place], [address], 3 16:12:19 urinalysis , dipstick 2022 023 [facility] Not available 15:57:[address] referral 2022 023 [place] [address] Gunner Degroot MD, [address] [facility] [address], [place], [address], 3 08:03:49 Procedures None recorded. Surgeries None recorded. Imaging None recorded. Medication Orders Macrobid 100 mg capsule 2022 023 sallie [facility], [address] [place] [address], [address], 08:03:19 fluconazol e 150 mg tablet 2022 023 [facility], [address] , [place], [address], 08:16:58 Wellbutrin XL 150 mg 24 hr tablet, extended release 2022 023 [facility], [address] [place] [address], [address], 3 16:39:36 Patient TargetsNo targets recorded. Patient InstructionsNo instructions recorded. 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 Referring Physician: Mike Duffy, Family Medicine, Encounter Date: 10/24/2022 Results Created Date Observation Date Name Description Value Unit Range Abnormal Flag Note LastModifiedBy Organization Detail LastModifiedTime 08/19/1908/22/2022 URINE CULTU RE, ROUTI NE urine culture, routine FINAL REPORT abnormal Not Available [facility] ([facility]) [address] [facility], [place], [address], 08/22/2022 16:12:19 08/19/1908/22/2022 URINE CULTU RE, ROUTI NE result 1 ESCHER ICHIA COLI abnormal Great er than 100,0 00 colon y formi ng units per mL Cefaz carlo <=4 ug/mL Cefaz carlo with an ROXI <=16 predi cts susce ptibi lity to the oral agent s cefac nereyda, cefdi graciela, cefpo doxim e, cefpr ozil, cefur oxime , cepha lexin , and lorac arbef when used for thera py of uncom plica jeison urina ry tract infec tions due to E. coli, Klebs iella pneum oniae , and Prote us mirab ilis. Not Available [facility] ([facility]) [address] [facility], [place], [address], 08/22/2022 16:12:19 08/19/19 23 08/22/2022 URINE CULTU RE, ROUTI NE antimicrobia l susceptibili ty COMMEN T S = Susce ptibl e; I = Inter media te; R = Resis tant P = Posit rk; N = Negat rk MICS are expre ssed in micro grams per mL Antib iotic RSLT# 1 RSLT# 2 RSLT# 3 RSLT# 4 Amoxi cilli n/Cla vulan ic Acid S Ampic illin S Cefep cristian S Ceftr iaxon e S Cefur oxime S Cipro floxa renate S Ertap enem S Genta micin S Imipe nem S Levof loxac in S Merop enem S Nitro furan toin S Piper acill in/Ta zobac ng S Tetra cycli ne S Tobra mycin S Trime thopr im/Burch lfa S Not Available [facility] ([facility]) [address] [facility], [place], [address], 08/22/2022 16:12:19 08/19/19 23 08/18/2022 urina lysis , dipst ick Leukocytes (reference range) modera te Not Available [address], [address], 08/18/2022 15:53:12 08/19/19 23 08/18/2022 urina lysis , dipst ick Nitrite (reference range:) negati ve Not Available [address], [address], 08/18/2022 15:53:12 08/19/19 23 08/18/2022 urina lysis , dipst ick Urobilinogen (reference range) 0.2 Not Available [address], [address], 08/18/2022 15:53:12 08/19/19 23 08/18/2022 urina lysis , dipst ick Protein (reference range) negati ve Not Available [address], [address], 08/18/2022 15:53:12 08/19/19 23 08/18/2022 urina lysis , dipst ick pH (reference range 5-8.5) 6.5 Not Available [address], [address], 08/18/2022 15:53:12 08/19/19 23 08/18/2022 urina lysis , dipst ick Blood (reference range:) non-He molyze d: Trace Not Available [address], [address], 08/18/2022 15:53:12 08/19/19 23 08/18/2022 urina lysis , dipst ick Specific [place] (reference range) 1.025 Not Available [address], [address], 08/18/2022 15:53:12 08/19/19 23 08/18/2022 urina lysis , dipst ick Ketone (reference range) negati ve Not Available [address], [address], 08/18/2022 15:53:12 08/19/19 23 08/18/2022 urina lysis , dipst ick Bilirubin (reference range) negati ve Not Available [address], [address], 08/18/2022 15:53:12 08/19/19 23 08/18/2022 urina lysis , dipst ick Glucose (reference range) negati ve Not Available [address], [address], 08/18/2022 15:53:12 08/19/19 23 08/18/2022 urina lysis , dipst ick Color (reference range: yellow-brown ) Yellow Not Available [address], [address], 08/18/2022 15:53:12 10/02/19 23 10/02/2022 FE+TI BC+FE R iron bind.cap.(TI BC) 256 ug/dL 250-45 0 Not Available [facility] ([facility]) [address] [place], [address], 10/10/2022 03:07:56 10/02/19 23 10/02/2022 FE+TI BC+FE R UIBC 152 ug/dL 131-42 5 Not Available [facility] ([facility]) [address] [place], [address], 10/10/2022 03:07:56 10/02/19 23 10/02/2022 FE+TI BC+FE R iron 104 ug/dL 27-159 Not Available [facility] ([facility]) [address] [place], [address], 10/10/2022 03:07:56 10/02/1910/02/2022 FE+TI BC+FE R iron saturation 41 % 15-55 Not Available [facility] ([facility]) [address] [place], [address], 10/10/2022 03:07:56 10/02/19 23 10/02/2022 FE+TI BC+FE R ferritin 263 NG/mL 15-150 above high normal Not Available [facility] ([facility]) [address] [place], [address], 10/10/2022 03:07:56 10/02/19 23 10/02/2022 CBC WITH DIFFE RENTI AL/PL ATELE T WBC 4.6 x10e3 /uL 3.4-10 .8 Not Available [facility] ([facility]) [address] [facility], [place], [address], 10/10/2022 03:07:57 10/02/19 23 10/02/2022 CBC WITH DIFFE RENTI AL/PL ATELE T RBC 4.71 x10e6 /uL 3.77-5 .28 Not Available [facility] ([facility]) [address] [place], [address], 10/10/2022 03:07:57 10/02/19 23 10/02/2022 CBC WITH DIFFE RENTI AL/PL ATELE T hemoglobin 14.4 g/dL 11.1-1 5.9 Not Available [facility] ([facility]) [address] [facility], [place], [address], 10/10/2022 03:07:57 10/02/1910/02/2022 CBC WITH DIFFE RENTI AL/PL ATELE T hematocrit 42.7 % 34.0-4 6.6 Not Available [facility] ([facility]) [address] [place], [address], 10/10/2022 03:07:57 10/02/1910/02/2022 CBC WITH DIFFE RENTI AL/PL ATELE T MCV 91 fL 79-97 Not Available [facility] ([facility]) [address] [place], [address], 10/10/2022 03:07:57 10/02/19 23 10/02/2022 CBC WITH DIFFE RENTI AL/PL ATELE T MCH 30.6 pg 26.6-3 3.0 Not Available [facility] ([facility]) [address] [place], [address], 10/10/2022 03:07:57 10/02/19 23 10/02/2022 CBC WITH DIFFE RENTI AL/PL ATELE T MCHC 33.7 g/dL 31.5-3 5.7 Not Available [facility] ([facility]) [address] [facility], [place], [address], 10/10/2022 03:07:57 10/02/19 23 10/02/2022 CBC WITH DIFFE RENTI AL/PL ATELE T RDW 12.4 % 11.7-1 5.4 Not Available [facility] ([facility]) [address] [facility], [place], [address], 10/10/2022 03:07:57 10/02/19 23 10/02/2022 CBC WITH DIFFE RENTI AL/PL ATELE T platelets 211 x10e3 /uL 150-45 0 Not Available [facility] ([facility]) [address] [facility], [place], [address], 10/10/2022 03:07:57 10/02/1910/02/2022 CBC WITH DIFFE RENTI AL/PL ATELE T neutrophils 60 % not estab. Not Available [facility] ([facility]) [address] [facility], [place], [address], 10/10/2022 03:07:57 10/02/19 23 10/02/2022 CBC WITH DIFFE RENTI AL/PL ATELE T lymphs 26 % not estab. Not Available [facility] ([facility]) [address] [facility], [place], [address], 10/10/2022 03:07:57 10/02/19 23 10/02/2022 CBC WITH DIFFE RENTI AL/PL ATELE T monocytes 7 % not estab. Not Available [facility] ([facility]) [address] [facility], [place], [address], 10/10/2022 03:07:57 10/02/19 23 10/02/2022 CBC WITH DIFFE RENTI AL/PL ATELE T eos 6 % not estab. Not Available [facility] ([facility]) [address] [facility], [place], [address], 10/10/2022 03:07:57 10/02/19 23 10/02/2022 CBC WITH DIFFE RENTI AL/PL ATELE T basos 1 % not estab. 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 0 Not Available [facility] ([facility]) [address] [place], [address], 10/10/2022 03:07:57 10/02/19 23 10/02/2022 CBC WITH DIFFE RENTI AL/PL ATELE T lymphs (absolute) 1.2 x10e3 /uL 0.7-3. 1 Not Available [facility] ([facility]) [address] [place], [address], 10/10/2022 03:07:57 10/02/1910/02/2022 CBC WITH DIFFE RENTI AL/PL ATELE T monocytes(ab solute) 0.3 x10e3 /uL 0.1-0. 9 Not Available [facility] ([facility]) [address] [place], [address], 10/10/2022 03:07:57 10/02/19 23 10/02/2022 CBC WITH DIFFE RENTI AL/PL ATELE T eos (absolute) 0.3 x10e3 /uL 0.0-0. 4 Not Available [facility] ([facility]) [address] [facility], [place], [address], 10/10/2022 03:07:57 10/02/19 23 10/02/2022 CBC WITH DIFFE RENTI AL/PL ATELE T baso (absolute) 0.0 x10e3 /uL 0.0-0. 2 Not Available [facility] ([facility]) [address] [facility], [place], [address], 10/10/2022 03:07:57 10/02/1910/02/2022 CBC WITH DIFFE RENTI AL/PL ATELE T immature granulocytes 0 % not estab. Not Available [facility] ([facility]) [address] [facility], [place], [address], 10/10/2022 03:07:57 10/02/19 23 10/02/2022 CBC WITH DIFFE RENTI AL/PL ATELE T immature grans (abs) 0.0 x10e3 /uL 0.0-0. 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 METAB OLIC PANEL (14) glucose 91 mg/dL 70-99 Not Available [facility] ([facility]) [address] [place], [address], 10/10/2022 03:07:58 10/02/19 23 10/02/2022 COMP. METAB OLIC PANEL (14) BUN 13 mg/dL 6-24 Not Available [facility] ([facility]) [address] [place], [address], 10/10/2022 03:07:58 10/02/19 23 10/02/2022 COMP. METAB OLIC PANEL (14) creatinine 0.74 mg/dL 0.57-1 .00 Not Available [facility] ([facility]) [address] [place], [address], 10/10/2022 03:07:58 10/02/19 23 10/02/2022 COMP. METAB OLIC PANEL (14) eGFR 95 mL/mi n/1.7 3 >59 Not Available [facility] ([facility]) [address] [place], [address], 10/10/2022 03:07:58 10/02/19 23 10/02/2022 COMP. METAB OLIC PANEL (14) BUN/creatini ne ratio 18 9-23 Not Available [facility] ([facility]) [address] [place], [address], 10/10/2022 03:07:58 10/02/19 23 10/02/2022 COMP. METAB OLIC PANEL (14) sodium 139 mmol/ L 134-14 4 Not Available [facility] ([facility]) [address] [place], [address], 10/10/2022 03:07:58 10/02/19 23 10/02/2022 COMP. METAB OLIC PANEL (14) potassium 4.9 mmol/ L 3.5-5. 2 Not Available [facility] ([facility]) [address] [facility] [place], [address], 10/10/2022 03:07:58 10/02/19 23 10/02/2022 COMP. METAB OLIC PANEL (14) chloride 102 mmol/ L 96-106 Not Available [facility] ([facility]) [address] [facility] [place], [address], 10/10/2022 03:07:58 10/02/19 23 10/02/2022 COMP. METAB OLIC PANEL (14) carbon dioxide, total 24 mmol/ L 20-29 Not Available [facility] ([facility]) [address] [facility] [place], [address], 10/10/2022 03:07:58 10/02/19 23 10/02/2022 COMP. METAB OLIC PANEL (14) calcium 9.6 mg/dL 8.7-10 .2 Not Available [facility] ([facility]) [address] [facility] [place], [address], 10/10/2022 03:07:58 10/02/19 23 10/02/2022 COMP. METAB OLIC PANEL (14) protein, total 6.9 g/dL 6.0-8. 5 Not Available [facility] ([facility]) [address] [facility] [place], [address], 10/10/2022 03:07:58 10/02/19 23 10/02/2022 COMP. METAB OLIC PANEL (14) albumin 4.8 g/dL 3.8-4. 9 Not Available [facility] ([facility]) [address] [facility] [place], [address], 10/10/2022 03:07:58 10/02/19 23 10/02/2022 COMP. METAB OLIC PANEL (14) globulin, total 2.1 g/dL 1.5-4. 5 Not Available [facility] ([place] [facility]) [address] [place], [address], 10/10/2022 03:07:58 10/02/19 23 10/02/2022 COMP. METAB OLIC PANEL (14) A/G ratio 2.3 1.2-2. 2 above high normal Not Available [facility] ([facility]) [address] [facility] [place], [address], 10/10/2022 03:07:58 10/02/19 23 10/02/2022 COMP. METAB OLIC PANEL (14) bilirubin, total 0.5 mg/dL 0.0-1. 2 Not Available [facility] ([facility]) [address] [facility] [place], [address], 10/10/2022 03:07:58 10/02/19 23 10/02/2022 COMP. METAB OLIC PANEL (14) alkaline phosphatase 68 IU/L 44-121 Not Available [facility] ([facility]) [address] [facility], [place], [address], 10/10/2022 03:07:58 10/02/19 23 10/02/2022 COMP. METAB OLIC PANEL (14) AST (SGOT) 22 IU/L 0-40 Not Available [facility] ([facility]) [address] [facility] [place], [address], 10/10/2022 03:07:58 10/02/19 23 10/02/2022 COMP. METAB OLIC PANEL (14) ALT (SGPT) 22 IU/L 0-32 Not Available [facility] ([facility]) [address] [facility] [place], [address], 10/10/2022 03:07:58 10/02/19 23 10/02/2022 LIPID PANEL WITH LDL/H DL RATIO cholesterol, total 226 mg/dL 100-19 9 above high normal Not Available [facility] ([facility]) [address] [place], [address], 10/10/2022 03:07:58 10/02/19 23 10/02/2022 LIPID PANEL WITH LDL/H DL RATIO triglyceride s 62 mg/dL 0-149 Not Available [facility] ([facility]) [address] [place], [address], 10/10/2022 03:07:58 10/02/19 23 10/02/2022 LIPID PANEL WITH LDL/H DL RATIO HDL cholesterol 68 mg/dL >39 Not Available [facility] ([facility]) [address] [place], [address], 10/10/2022 03:07:58 10/02/19 23 10/02/2022 LIPID PANEL WITH LDL/H DL RATIO VLDL cholesterol william 11 mg/dL 5-40 Not Available [facility] ([facility]) [address] [place], [address], 10/10/2022 03:07:58 10/02/19 23 10/02/2022 LIPID PANEL WITH LDL/H DL RATIO LDL chol calc (nih) 147 mg/dL 0-99 above high normal Not Available [facility] ([facility]) [address] [place], [address], 10/10/2022 03:07:58 10/02/19 23 10/02/2022 LIPID PANEL WITH LDL/H DL RATIO comment: 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 2 LDL/H DL Ratio Men Women 1/2 Avg.R isk 1.0 1.5 Avg.R isk 3.6 3.2 2X Avg.R isk 6.2 5.0 3X Avg.R isk 8.0 6.1 Not Available [facility] ([facility]) [address] [place], [address], 10/10/2022 03:07:58 10/02/19 23 10/02/2022 THYRO ID PANEL WITH TSH TSH 1.990 uIU/m L 0.450- 4.500 Not Available [facility] ([facility]) [address] [facility], [place], [address], 10/10/2022 03:07:58 10/02/19 23 10/02/2022 THYRO ID PANEL WITH TSH thyroxine (T4) 8.5 ug/dL 4.5-12 .0 Not Available [facility] ([facility]) [address] [place], [address], 10/10/2022 03:07:58 10/02/19 23 10/02/2022 THYRO ID PANEL WITH TSH T3 uptake 26 % 24-39 Not Available [facility] ([facility]) [address] [facility] [place], [address], 10/10/2022 03:07:58 10/02/1910/02/2022 THYRO ID PANEL WITH TSH free thyroxine index 2.2 1.2-4. 9 Not Available [facility] ([facility]) [address] [facility], [place], [address], 10/10/2022 03:07:58 10/02/1910/10/2022 TESTO STERO NE, WOMEN /CHIL D testosterone , total 28 NG/dL This test was devel oped and its perfo rmanc e sylwia cteri stics deter mined by [facility]. It has not been clear ed or appro maryan by the Food and Drug Admin istra tion. Refer ence Range : Adult Femal es Preme nopau rahel 10 - 55 Postm enopa usal 7 - 40 Not Available [facility] [address] [place] [address], [place], [address], 10/10/2022 03:07:59 10/02/19 23 10/02/2022 VITAM IN B12 AND FOLAT E vitamin B12 655 pg/mL 232-12 45 Not Available [facility] ([facility]) [address] [facility] [place], [address], 10/10/2022 03:07:59 10/02/1910/02/2022 VITAM IN B12 AND FOLAT E folate (folic acid), serum 17.7 NG/mL >3.0 A serum folat e january ntrat ion of less than 3.1 ng/mL is consi dered to repre sent clini william defic iency . Not Available [facility] ([facility]) [address] [facility], [place], [address], 10/10/2022 03:07:59 10/02/1910/02/2022 FSH AND LH LH 20.1 mIU/m L Adult Femal e: Folli cular phase 2.4 - 12.6 Ovula tion phase 14.0 - 95.6 Lutea l phase 1.0 - 11.4 Postm enopa usal 7.7 - 58.5 Not Available [facility] ([facility]) [address] [facility], [place], [address], 10/10/2022 03:07:59 10/02/1910/02/2022 FSH AND LH FSH 67.7 mIU/m L Adult Femal e: Folli cular phase 3.5 - 12.5 Ovula tion phase 4.7 - 21.5 Lutea l phase 1.7 - 7.7 Postm enopa usal 25.8 - 134.8 Not Available [facility] ([facility]) [address] [place], [address], 10/10/2022 03:07:59 10/02/1910/02/2022 HEMOG LOBIN A1C hemoglobin A1C 5.6 % 4.8-5. 6 Predi abete s: 5.7 - 6.4 Diabe jennyfer: >6.4 Glyce roxi contr ol for adult s with diabe jenynfer: <7.0 Not Available [facility] ([facility]) [address] [place], [address], 10/10/2022 03:08:00 10/02/1910/02/2022 VITAM IN D, 25-HY DROXY vitamin D, 25-hydroxy 34.7 NG/mL 30.0-1 00.0 Vitam in D defic iency has been defin ed by the Insti tute of Medic ine and an Endoc rine Socie ty pract ice guide line as a level of serum 25-OH vitam in D less than 20 ng/mL (1,2) . The Endoc rine Socie ty went on to furth er defin e vitam in D insuf ficie ncy as a level betwe en 21 and 29 ng/mL (2). 1. IOM (Inst itute of Medic ine). 2010. Dieta ry refer ence intak es for calci um and D. Marisela coughlin [place]: [facility] . 2. Ashlee lira [place], Kassie miller [place], Phil off-F errar i [place]ASS, et al. Evalu ation , treat ment, and preve ntion of vitam in D defic iency : an Endoc rine Socie ty clini william pract ice guide line. JCEM. 2010; 96(7) :1911 -30. Not Available [facility] ([facility]) [address] [facility] [place], [address], 10/10/2022 03:08:00 10/02/1910/02/2022 ESTRA DIOL estradiol 7.1 pg/mL Adult Femal e: Folli cular phase 12.5 - 166.0 Ovula tion phase 85.8 - 498.0 Lutea l phase 43.8 - 211.0 Postm enopa usal <6.0 - 54.7 Pregn dorie 1st trime ster 215.0 - >4300 .0 Sang ECLIA metho dolog y Not Available [facility] ([facility]) [address] [place], [address], 10/10/2022 03:08:01 10/02/1910/02/2022 DHEA- SULFA TE DHEA-sulfate 27.1 ug/dL 29.4-2 20.5 below low normal Not Available [facility] ([facility]) [address] [facility], [place], [address], 10/10/2022 03:08:01 10/02/19 23 10/08/2022 RF, IGA BY EIA (RDL) rf, IgA by EIA (rdl) <7 U <7 Not Available [facility] [address] [place], [address], 10/10/2022 03:08:01 10/02/1910/02/2022 ANTI- CCP AB, IGG/I GA anti-ccp Ab, IgG/IgA 4 units 0-19 Negat rk <20 Weak posit rk 20 - 39 Moder ate posit rk 40 - 59 Stron g posit rk >59 Not Available [facility] ([facility]) [address] [facility], [place], [address], 10/10/2022 03:08:02 10/02/1910/02/2022 URIC ACID uric acid 4.5 mg/dL 3.0-7. 2 Thera rahi c pierre t for gout patie nts: <6.0 Not Available [facility] ([facility]) [address] [place], [address], 10/10/2022 03:08:02 10/02/19 23 10/02/2022 ANTIN UCLEA R AB MULTI PLEX RFX 9 YULIYA direct Negati ve negati ve Not Available [facility] ([facility]) [address] [place], [address], 10/10/2022 03:08:02 10/02/1910/02/2022 SEDIM ENTAT ION RATE- WESTE RGREN sedimentatio n rate-westerg shaneka 14 mm/HR 0-40 Not Available [facility] ([facility]) [address] [place], [address], 10/10/2022 03:08:03 10/02/19 23 10/02/2022 PROGE STERO NE progesterone 0.1 NG/mL Folli cular phase 0.1 - 0.9 Lutea l phase 1.8 - 23.9 Ovula tion phase 0.1 - 12.0 Pregn ant First trime ster 11.0 - 44.3 Secon d trime ster 25.4 - 83.3 Third trime ster 58.7 - 214.0 Postm enopa usal 0.0 - 0.1 Not Available [facility] ([facility]) [address] [facility] [place], [place], [address], 10/10/2022 03:08:03 10/02/19 23 10/02/2022 C-MIGUEL CTIVE PROTE IN, QUANT C-reactive protein, quant 4 mg/L 0-10 Not Available [facility] ([facility]) [address] [facility] [place], [place], [address], 10/10/2022 03:08:03 Result Notes None recorded. Problems Name Problem SNOMED Code Status Onset Date Resolution Date Notes Provider Name and Address Organization Details Recorded Time Essential hypertensi on 44933916 Active 2022 MIKE DUFFY NP [address] [place] [address], [phone], [place] - [facility] & [place] 3 08:27:40 Paroxysmal atrial fibrillati on 496848142 Active 2022 attributes to allergic reaction from MSG; seen in ER once 2014 MIKE DUFFY NP [address] [place] [address], [phone], [place] - [facility] - [place] & [place] 3 08:27:19 Dyspnea on exertion 42425496 Active 2022 MIKE DUFFY NP [address] [place] [address], [phone], [place] - [facility] - [place] & [place] 3 09:45:52 Mixed anxiety and depressive disorder 023910781 Active 2022 MIKE DUFFY NP [address] [place] [address], [phone] [facility] LINH RODRIGUE [facility] & [place] 09:45:55 Problem Notes None recorded. Procedures Surgical History Date Name Laterality Status Provider Name and Address Organization Details Recorded Time extraction of wisdom tooth completed Michelle HUSAIN [facility] & [place] 08/18/2022 15:09:03 Partial Hysterectomy completed Michelle HUSAIN [facility] & [place] 08/18/2022 15:09:26 [facility]al [facility] [place] 08/18/2022 15:09:34 Carpal Tunnel Surgery completed [facility] [place] 08/18/2022 15:09:46 Imaging Results None recorded. Procedure Notes None recorded. Medical Equipment None Reported. Allergies Allergen ID Allergen Name Allergen Category Reaction Reaction Severity Criticality Documentation Date Start Date Code Code System Note Provider Name and Address Organization Details Recorded Time 70631 tramadol medicatio n Not available Not available Not available 08/18/2022 07670 RxNorm Michelle deng, LINH Cameron [facility] & [place] 15:06:31 Medications Name Sig Start Date Stop Date Status Note LastModified by Organization Details LastModified Time fluconazole 150 mg tablet 1 tablet today and repeat in 8 days when done with antibioti cs 10/01 completed Not Available Not Available Not Available ibuprofen 200 mg capsule Take 3 capsules every day by oral route. active Not Available Not Available No t Available terconazole 0.8 % vaginal cream 08/18 completed Not Available Not Available Not Available methocarbam ol 750 mg tablet Take 1 tablet as needed by oral route. active Not Available Not Available No t Available zinc 60 mg tablet Take 1 tablet every day by oral route as directed. active Not Available Not Available No t Available lisinopril 10 mg tablet 08/18 completed Not Available Not Available Not Available lisinopril 5 mg tablet Take 1 tablet every day by oral route. active Not Available Not Available No t Available bupropion HCl XL 150 mg 24 hr tablet, extended release Take 1 tablet every day by oral route for 90 days. active Not Available Not Available No t Available nitrofurant oin monohydrate /macrocryst als 100 mg capsule Take 1 capsule every 12 hours by oral route for 7 days. 10/01 completed Not Available Not Available Not Available magnesium once a day active Not Available Not Available No t Available Co Q-10 take 1 by mouth daily active Not Available Not Available No t Available vitamin E once a day active Not Available Not Available No t Available vitamin B complex one tablet everyday active Not Available Not Available No t Available omega 3 360 mg-dha 108 mg-epa 180 mg-fish oil 1,200 mg capsule Take 1 capsule every day by oral route as directed. active Not Available Not Available No t Available Vitals Date Recorded Body height Body mass index (BMI) Body weight Body temperature Oxygen saturation Oxygen saturation in Arterial blood by Pulse oximetry Heart rate Systolic blood pressure Diastolic blood pressure Provider Name and Address Organization Details Last Updated DateTime 3 168.91 cm 32 kg/m2 32370.0 7 g 97.3 [degF] 99 % 99 % 67 /min 124 mm[Hg] 78 mm[Hg] Michelle Carbone [facility] 3 15:05:53 Date Recorded Body height Body mass index (BMI) Body weight Body temperature Oxygen saturation Oxygen saturation in Arterial blood by Pulse oximetry Heart rate Systolic blood pressure Diastolic blood pressure Provider Name and Address Organization Details Last Updated DateTime 3 168.91 cm 31.2 kg/m2 17978.1 g 97 [degF] 98 % 98 % 67 /min 145 mm[Hg] 78 mm[Hg] Michelle Carbone [facility] 3 08:03:04 Date Recorded Body height Body mass index (BMI) Body weight Body temperature Oxygen saturation Oxygen saturation in Arterial blood by Pulse oximetry Heart rate Respiratory rate Systolic blood pressure Diastolic blood pressure Provider Name and Address Organization Details Last Updated DateTime 3 168.91 cm 30.9 kg/m2 87825.0 8 g 97.3 [degF] 100 % 100 % 77 /min 16 /min 122 mm[Hg] 85 mm[Hg] Judith MELTON [facility] & [place] 3 09:16:16 Social History Question Answer Notes LastModified by Organizat ion Details LastModified Time Tobacco Smoking Status Former Smoker Michelle Carbone [facility], [place] - [facility] & [place] 08/18/2022 15:08:38 What Is Your Level Of Alcohol Consumption? Occasional Information not available 08/18/2022 What Is Your Level Of Caffeine Consumption? Heavy Information not available 08/18/2022 When Did You Quit Smoking? 16+yearssincel astcigarette Information not available 08/18/2022 What Was The Date Of Your Most Recent Tobacco Screening? 08/18/2022 Information not available 08/18/2022 At What Age Did You Start Smoking Tobacco? 22 Information not available 08/18/2022 Do You Use Any Illicit Or Recreational Drugs? No Information not available 08/18/2022 Has Tobacco Cessation Counseling Been Provided? No Information not available 08/18/2022 How Many Years Have You Smoked Tobacco? 11 Information not available 08/18/2022 Do You Or Have You Ever Used Any Other Forms Of Tobacco Or Nicotine? No Information not available 08/18/2022 How Many Days In The Past Year Have You Consumed 4 Or More Drinks? 0 Information no t available 08/18/2022 Sex: Unknown Functional Status None recorded. Mental Status None recorded. Family History Relationship Description Onset Age of this Age Resolved Age Notes LastModified by Organization Details LastModified Time Mother Malignant tumor of breast [email or web address] Not available 2022 15:07:28 Mother Hypercholest pippa vernon Not available 2022 16:42:31 Father Myocardial infarction Deceas ed [email or web address] Not available 08/18/2022 15:07:38 Father Chronic obstructive pulmonary disease deceas ed jkiskaden Not available 08/18/2022 15:07:48 Brother Harman vernon Not available 2022 16:42:31 Medical History Condition Response Hypertension Y Gynecological HistoryNo gynecological history recorded. Obstetrics History GPAL:G 0 P 0 0 0 0 Past Encounters Encounter ID Performer Location Encounter Start Date Encounter Closed Date Diagnosis/Indication Diagnosis SNOMED-CT Code Diagnosis ICD10 Code Diagnosis Note [id number] MIKE DUFFY NP [id number] [address] 08/18/2022 14:19:50 08/18/2022 16:51:14 Patient new to provider 6924109712 88181 Z76.89 reviewed hx per patientlab s from May reviewed which was CBC and CMP and left foot xray Essential hypertension 42362589 I10 decreased from 10 mg to current 5 mgwishes to try to come of off; would like to try pink grapefruit juice to help with lowering will keep eye on and make sure meeting goal of <130/90 Dysuria 77386712 R30.0 awaiting culturetx for UTIdiscuss ed medication s as prescribed f/u if symptoms persist or worsen Mixed anxi ety and depressive disorder 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 Education was provided on healthy nutrition, including a diet rich in fruits and vegetables , minimizing simple carbohydra jennyfer, salt, and saturated fats. Encouraged regular cardiovasc ular exercise such as walking at least 30 minutes daily, 5 times per week. Emphasized preventive health measures and educated pt on fall prevention and community- based lifestyle interventi ons to help reduce health risks and promote healthy living. declines colonoscop y and cologuardr eports mammogram UTD Fatigue 44947523 R53.83 sleep hygieneawa iting lab work blood drawn in the left AC by Michelle Carbone CMA, patient tolerated well. History of hysterectomy 522773123 Z90.711 Dyspareunia 18209756 N94 .10 awaiting lab workdiscus sed lubricatio n; and reason for loss of estrogen after hysterecto my Essential hypertension 81973864 I10 educated on goal of less than 130/90home readings controlled advised low sodium diet, healthy lifestyle including exercise as ablecontin ue current medication regimenER if any symptoms such as chest pain, shortness of breath Mixed hyperlipidemia 267 646369 E78.2 tried cholestero l medication in past- unknown which one- unable to tolerate joint painPatien t advised to exercise, eat a prudent diet and lose weight as appropriat e. Multiple joint pain 3567 8005 M25.50 joint changes of hand and feet bilateralo n ibuprofen since [id number] MIKE DUFFY NP [facility] [address] [address] 10/24/2022 09:08:30 10/24/2022 09:43:31 Dyspnea on exertion 11281109 R06.09 ER if any urgent signs or symptoms arisecardi ology referral placed; needs cardiac workup Essential hypertension 79951716 I10 educated on goal of less than 130/90avoi d sudafed as can increaseho me blood pressure log reviewed which shows systolic 120 to 160discuss ed increasing back to lisinopril 10mgadvise d low sodium diet, healthy lifestyle including exercise as ablecontin ue current medication regimenER if any symptoms such as chest pain, shortness of breath Mixed anxi ety and depressive disorder 734054214 F41.8 wean wellbutrin ; discussed and verbalizes understand ingdenies SI/HI Health Concerns Section Related Observation LastModified by Organization Detai ls LastModified Time None Recorded Concern Status LastModified by Organization Details LastModified Time None Recorded Advance Directives Directive None Recorded Payers Encounter Date Sequence Insurance Name Policy Number Policy Allison Covered Member ID Allison Member ID Guarantor Name 08/18/2022 [facility] Omayra Tran [id number] Omayra Tran 10/01/2022 [facility] Omayra Tran [id number] Omayra Tran 10/24/2022 [facility] Omayra Tran [id number] Omayra Tran Notes Date Note Type Note Provider Name and Address Organization Details Recorded Time 08/18/2022 text/html 57 yr old female who presents as new patient.[facility], wishes to have PCP closer to home. HX of HTN, taking lisinopril 5 mg once daily. Was taking 10 mg and tried to fully come off but BP increased on day 5. Unsure if related to stressful day so that's when she started taking 5 mg. Denies chest pain, shortness of breath, does have occasional swelling on left leg swelling, due to left foot degenerative changes and cyst which is seeing Dr. Alanis for, podiatry; plans to have surgery in March. 6 to 7 yrs of intermittent tachycardia; Occasional. Once every 2 weeks, less than 5 minutes then resolves. Denies chest pain or shortness of breathwhen happens. Goes to sleep at 9 or 10 pm and often wide awake at 3 am. and reports this is often enough sleep for her. Some concerns with depression, denies SI/HI. Just feels nothing. Never been on medication before.denies SI/HI just feels here; not sad or mad or happy This past reports flank pain, increased urination, did help with increasing water intake. Denies blood in urine. No flank pain currently. Also thinks getting yeast infection. Mother with breast cancer - pt UTD on screenings MIKE DUFFY NP [address] [facility] [address], [place], [address], [facility] & [place] 08/18/2022 16:45:55 10/01/2022 text/html Patient presents for annual visit.Vision screening: needs eye doctorDental screening: has one scheduledAny falls, fractures surgeries: deniesSpecialist: manager green, winter operation of left footColonoscopy: denies colonoscopy and cologuardAnxiety/Depre ssion screening: denies SI/HIMammogram: UTDImmunizations: declines any; tdap within 7 yearsWellbutrin helped at first, not so much nowLeft leg swells, US were all normalLow energy, wishes to have hormones and vitamins checkedBP running 109/60;130/70 averageComplains of years of worsening joint pain; toes turning under; unable to straighten them; knee pain daily; hand and arm pain daily; constant popping, swelling. Tried tumeric for inflammation without success. Has taken ibuprofen since the . MIKE DUFFY NP [address] [facility] [address], [place], [address], [place] - [facility] & [place] 10/01/2022 10:15:04 10/24/2022 text/html 57 yr old female who presents for cough but cough now resolved, was present since Thursday, approx 4 days but now cleared after taking sudafed. Also wishes to stop wellbutrin. Reports 150 mg XL wasnt enough but the 300 mg XL knocks her out and makes her sleepy in the afternoon. Does report fatigue and [place]. Never had before. Denies any chest pain when occurs. Reports better with rest but getting in the way of things she needs to do. Does have hx of one episode of atrial fibrillation with ER visit, that attributes to MSG allergy. Brought home blood pressure log; reviewed which shows systolic 120 to 160. MIKE DUFFY, [employer] [address] [facility] [address], [place], [address], [place] - [facility] & [place] 10/26/2022 18:13:39 OBGyn Episode No OBEpisode recorded.
== END 2024-09-05 23:59 | disposition home or self-care (01) ==
LOC: RAD 15:17
PROVIDERS: PCP Family Medicine; Visit Provider Internal Medicine
DX: Z12.31 Encounter for screening mammogram for malignant neoplasm of breast (principal)
CPT/HCPCS: 77063; 77067

== ENCOUNTER 2024-10-19 13:08 | Outpatient (CLI) | payer OTHER, SELFPAY ==
--- NOTE | 2024-10-19 13:11 | XR_ITS ---
FINAL REPORT CLINICAL HISTORY: Rt knee pain, nki COMPARISON: 12/22/2022 FINDINGS: RIGHT KNEE Three views were obtained. There is no fracture or dislocation. There is mild narrowing of the medial and lateral compartment joint spaces. There are small osteophytes at the medial joint margin. Osteophytes are seen along the undersurface of the patella. No soft tissue abnormality is identified. IMPRESSION: Mild to moderate changes of osteoarthritis Reviewed, Interpreted and Dictated by Bean Prescott MD Transcribed by Sheri Rosario Authenticated and [facility]
--- OUTSIDE RECORDS SUMMARY | 2024-10-19 13:11 | XMS_ITS | Data Portability ---
Author Organization [facility] Address [address] [place] [address] Assessment No assessment recorded. Plan of Treatment Reminders Order Date Submit Date Provider Last Modified By Organization Details Last Modified Time Details Appointments None recorded. Lab progestero ne, serum 2022 023 [facility], [address], [address], [place], [address], 3 10:51:57 estradiol, serum 2022 023 [facility], [address], [address], [place], [address], 3 10:51:53 lh + FSH, serum 2022 023 [facility], [address], [address], [place], [address], 3 10:51:52 dhea-sulfa te, serum 2022 023 [facility], [address], [place], [address], 3 10:51:54 testostero ne, total, serum 2022 023 jkiskaden [facility], [address], [place], [address], 3 09:51:05 lipid panel, serum 2022 023 [facility], [address], [place], [address], 3 10:51:50 C reactive protein, QN, serum or plasma 2022 023 [facility], [address], [place], [address], 3 10:51:57 ESR (erythrocy te sedimentat ion rate), blood 2022 023 [facility], [address], [place], [address], 3 10:51:56 YULIYA (antinucle ar antibodies ) screen, serum 2022 023 [facility], [address], [place], [address], 3 10:51:56 rf (rheumatoi d factor) iga, serum 2022 023 [facility], [address], [place], [address], 3 10:51:54 ccp (cyclic citrullina jeison peptide) iga+igg, serum 2022 023 [facility], [address], [place], [address], 3 10:51:55 uric acid, serum or plasma 2022 023 [facility], [address], [place], [address], 3 10:51:55 vitamin B12 + folate, serum or blood 2022 023 [facility], [address], [place], [address], 3 10:51:51 iron + TIBC + ferritin, serum 2022 023 [facility], [address], [place], [address], 3 10:51:49 CBC w/ auto diff 2022 023 [facility], [address], [place], [address], 3 10:51:58 HbA1c (hemoglobi n A1c), blood 2022 023 [facility], [address], [place], [address], 3 10:51:52 CMP, serum or plasma 2022 023 [facility], [address], [place], [address], 3 10:51:49 thyroid panel, serum 2022 023 [facility], [address], [place], [address], 3 10:51:50 vitamin D, 25-hydroxy , total, serum 2022 023 [facility], [address], [place], [address], 3 10:51:53 culture, urine 2022 023 [facility], [address], [place], [address], 3 16:12:19 urinalysis , dipstick 2022 023 [facility] Not available 15:57:[address] referral 2022 023 [place] [address] Gunner Degroot MD, [address] [facility] [address] [address], [place], [address], 3 08:03:49 Procedures None recorded. Surgeries None recorded. Imaging None recorded. Medication Orders Macrobid 100 mg capsule 2022 023 [facility], [address] [place] [address], [address], 08:03:19 fluconazol e 150 mg tablet 2022 023 [facility], [address] , [place], [address], 08:16:58 Wellbutrin XL 150 mg 24 hr tablet, extended release 2022 023 [facility], [address] [place] [address], [address], 3 16:39:36 Patient TargetsNo targets recorded. Patient InstructionsNo instructions recorded. Reason for Referral [employer] Referral for Dy spnea on exertion Referring Physician: Mike Duffy, Family Medicine, Encounter Date: 10/24/2022 Results Created Date Observation Date Name Description Value Unit Range Abnormal Flag Note LastModifiedBy Organization Detail LastModifiedTime 08/19/1908/22/2022 URINE CULTU RE, ROUTI NE urine culture, routine FINAL REPORT abnormal Not Available [facility] ([facility]) [address] [facility], [place], [address], 08/22/2022 16:12:19 08/19/1908/22/2022 URINE CULTU RE, ROUTI [...] Prote us mirab ilis. Not Available [facility] ([facility]) [address] [facility], [place], [address], 08/22/2022 16:12:19 08/19/19 23 08/22/2022 URINE CULTU [...] thopr im/Burch lfa S Not Available [facility] ([facility]) [address] [facility], [place], [address], 08/22/2022 16:12:19 08/19/19 23 08/18/2022 urina lysis , dipst ick Leukocytes (reference range) modera te Not Available [address], [address], 08/18/2022 15:53:12 08/19/19 23 08/18/2022 urina lysis , dipst ick Nitrite (reference range:) negati ve Not Available [address], [address], 08/18/2022 15:53:12 08/19/19 23 08/18/2022 urina lysis , dipst ick Urobilinogen (reference range) 0.2 Not Available [address], [address], 08/18/2022 15:53:12 08/19/19 23 08/18/2022 urina lysis , dipst ick Protein (reference range) negati ve Not Available [address], [address], 08/18/2022 15:53:12 08/19/19 23 08/18/2022 urina lysis , dipst ick pH (reference range 5-8.5) 6.5 Not Available [address], [address], 08/18/2022 15:53:12 08/19/19 23 08/18/2022 urina lysis , dipst ick Blood (reference range:) non-He molyze d: Trace Not Available [address], [address], 08/18/2022 15:53:12 08/19/19 23 08/18/2022 urina lysis , dipst ick Specific Grayson (reference range) 1.025 Not Available [address], [address], 08/18/2022 15:53:12 08/19/19 23 08/18/2022 urina lysis , dipst ick Ketone (reference range) negati ve Not Available [address], [address], 08/18/2022 15:53:12 08/19/19 23 08/18/2022 urina lysis , dipst ick Bilirubin (reference range) negati ve Not Available [address], [address], 08/18/2022 15:53:12 08/19/19 23 08/18/2022 urina lysis , dipst ick Glucose (reference range) negati ve Not Available [address], [address], 08/18/2022 15:53:12 08/19/19 23 08/18/2022 urina lysis , dipst ick Color (reference range: yellow-brown ) Yellow Not Available [address], [address], 08/18/2022 15:53:12 10/02/19 23 10/02/2022 FE+TI BC+FE R iron bind.cap.(TI BC) 256 ug/dL 250-45 0 Not Available [facility] ([facility]) [address] [place], [address], 10/10/2022 03:07:56 10/02/19 23 10/02/2022 FE+TI BC+FE R UIBC 152 ug/dL 131-42 5 Not Available [facility] ([facility]) [address] [place], [address], 10/10/2022 03:07:56 10/02/19 23 10/02/2022 FE+TI BC+FE R iron 104 ug/dL 27-159 Not Available [facility] ([facility]) [address] [place], [address], 10/10/2022 03:07:56 10/02/1910/02/2022 FE+TI BC+FE R iron saturation 41 % 15-55 Not Available [facility] ([facility]) [address] [place], [address], 10/10/2022 03:07:56 10/02/19 23 10/02/2022 FE+TI BC+FE R ferritin 263 NG/mL 15-150 above high normal Not Available [facility] ([facility]) [address] [facility] [place], [address], 10/10/2022 03:07:56 10/02/19 23 10/02/2022 CBC WITH DIFFE RENTI AL/PL ATELE T WBC 4.6 x10e3 /uL 3.4-10 .8 Not Available [facility] ([facility]) [address] [facility], [place], [address], 10/10/2022 03:07:57 10/02/19 23 10/02/2022 CBC WITH DIFFE RENTI AL/PL ATELE T RBC 4.71 x10e6 /uL 3.77-5 .28 Not Available [facility] ([facility]) [address] [place], [address], 10/10/2022 03:07:57 10/02/19 23 10/02/2022 CBC WITH DIFFE RENTI AL/PL ATELE T hemoglobin 14.4 g/dL 11.1-1 5.9 Not Available [facility] ([facility]) [address] [facility], [place], [address], 10/10/2022 03:07:57 10/02/1910/02/2022 CBC WITH DIFFE RENTI AL/PL ATELE T hematocrit 42.7 % 34.0-4 6.6 Not Available [facility] ([facility]) [address] [place], [address], 10/10/2022 03:07:57 10/02/1910/02/2022 CBC WITH DIFFE RENTI AL/PL ATELE T MCV 91 fL 79-97 Not Available [facility] ([facility]) [address] [place], [address], 10/10/2022 03:07:57 10/02/19 23 10/02/2022 CBC WITH DIFFE RENTI AL/PL ATELE T MCH 30.6 pg 26.6-3 3.0 Not Available [facility] ([facility]) [address] [facility] [place], [address], 10/10/2022 03:07:57 10/02/19 23 10/02/2022 CBC WITH DIFFE RENTI AL/PL ATELE T MCHC 33.7 g/dL 31.5-3 5.7 Not Available [facility] ([facility]) [address] [facility], [place], [address], 10/10/2022 03:07:57 10/02/19 23 10/02/2022 CBC WITH DIFFE RENTI AL/PL ATELE T RDW 12.4 % 11.7-1 5.4 Not Available [facility] ([facility]) [address] [facility], [place], [address], 10/10/2022 03:07:57 10/02/19 23 10/02/2022 CBC WITH DIFFE RENTI AL/PL ATELE T platelets 211 x10e3 /uL 150-45 0 Not Available [facility] ([facility]) [address] [facility], [place], [address], 10/10/2022 03:07:57 10/02/1910/02/2022 CBC WITH DIFFE RENTI AL/PL ATELE T neutrophils 60 % not estab. Not Available [facility] ([facility]) [address] [facility], [place], [address], 10/10/2022 03:07:57 10/02/19 23 10/02/2022 CBC WITH DIFFE RENTI AL/PL ATELE T lymphs 26 % not estab. Not Available [facility] ([facility]) [address] [facility], [place], [address], 10/10/2022 03:07:57 10/02/19 23 10/02/2022 CBC WITH DIFFE RENTI AL/PL ATELE T monocytes 7 % not estab. Not Available [facility] ([facility]) [address] [facility], [place], [address], 10/10/2022 03:07:57 10/02/19 23 10/02/2022 CBC WITH DIFFE RENTI AL/PL ATELE T eos 6 % not estab. Not Available [facility] ([facility]) [address] [facility], [place], [address], 10/10/2022 03:07:57 10/02/19 23 10/02/2022 CBC WITH DIFFE RENTI AL/PL ATELE T basos 1 % not estab. Not Available [facility] ([facility]) [address] [facility], [place], [address], 10/10/2022 03:07:57 10/02/1910/02/2022 CBC WITH DIFFE RENTI AL/PL ATELE T immature cells [employer] Not Available [facility] ([facility]) [address] [place], [address], 10/10/2022 03:07:57 10/02/19 23 10/02/2022 CBC WITH DIFFE RENTI AL/PL ATELE T neutrophils (absolute) 2.8 x10e3 /uL 1.4-7. 0 Not Available [facility] ([facility]) [address] [place], [address], 10/10/2022 03:07:57 10/02/19 23 10/02/2022 CBC WITH DIFFE RENTI AL/PL ATELE T lymphs (absolute) 1.2 x10e3 /uL 0.7-3. 1 Not Available [facility] ([facility]) [address] [place], [address], 10/10/2022 03:07:57 10/02/1910/02/2022 CBC WITH DIFFE RENTI AL/PL ATELE T monocytes(ab solute) 0.3 x10e3 /uL 0.1-0. 9 Not Available [facility] ([facility]) [address] [place], [address], 10/10/2022 03:07:57 10/02/19 23 10/02/2022 CBC WITH DIFFE RENTI AL/PL ATELE T eos (absolute) 0.3 x10e3 /uL 0.0-0. 4 Not Available [facility] ([facility]) [address] [facility], [place], [address], 10/10/2022 03:07:57 10/02/19 23 10/02/2022 CBC WITH DIFFE RENTI AL/PL ATELE T baso (absolute) 0.0 x10e3 /uL 0.0-0. 2 Not Available [facility] ([facility]) [address] [facility], [place], [address], 10/10/2022 03:07:57 10/02/1910/02/2022 CBC WITH DIFFE RENTI AL/PL ATELE T immature granulocytes 0 % not estab. Not Available [facility] ([facility]) [address] [facility], [place], [address], 10/10/2022 03:07:57 10/02/19 23 10/02/2022 CBC WITH DIFFE RENTI AL/PL ATELE T immature grans (abs) 0.0 x10e3 /uL 0.0-0. 1 Not Available [facility] ([facility]) [address] [facility], [place], [address], 10/10/2022 03:07:57 10/02/1910/02/2022 CBC WITH DIFFE RENTI AL/PL ATELE T NRBC [employer] Not Available [facility] ([facility]) [address] [facility], [place], [address], 10/10/2022 03:07:57 10/02/1910/02/2022 CBC WITH DIFFE RENTI AL/PL ATELE T hematology comments: [employer]IVE Not Available [facility] ([facility]) [address] [facility], [place], [address], 10/10/2022 03:07:57 10/02/19 23 10/02/2022 COMP. METAB OLIC PANEL (14) glucose 91 mg/dL 70-99 Not Available [facility] ([facility]) [address] [place], [address], 10/10/2022 03:07:58 10/02/19 23 10/02/2022 COMP. METAB OLIC PANEL (14) BUN 13 mg/dL 6-24 Not Available [facility] ([facility]) [address] [place], [address], 10/10/2022 03:07:58 10/02/19 23 10/02/2022 COMP. METAB OLIC PANEL (14) creatinine 0.74 mg/dL 0.57-1 .00 Not Available [facility] ([facility]) [address] [place], [address], 10/10/2022 03:07:58 10/02/19 23 10/02/2022 COMP. METAB OLIC PANEL (14) eGFR 95 mL/mi n/1.7 3 >59 Not Available [facility] ([facility]) [address] [place], [address], 10/10/2022 03:07:58 10/02/19 23 10/02/2022 COMP. METAB OLIC PANEL (14) BUN/creatini ne ratio 18 9-23 Not Available [facility] ([facility]) [address] [place], [address], 10/10/2022 03:07:58 10/02/19 23 10/02/2022 COMP. METAB OLIC PANEL (14) sodium 139 mmol/ L 134-14 4 Not Available [facility] ([facility]) [address] [place], [address], 10/10/2022 03:07:58 10/02/19 23 10/02/2022 COMP. METAB OLIC PANEL (14) potassium 4.9 mmol/ L 3.5-5. 2 Not Available [facility] [address] [facility], [address], 10/10/2022 03:07:58 10/02/19 23 10/02/2022 COMP. METAB OLIC PANEL (14) chloride 102 mmol/ L 96-106 Not Available [facility] ([facility] [address] [facility], [address], 10/10/2022 03:07:58 10/02/19 23 10/02/2022 COMP. METAB OLIC PANEL (14) carbon dioxide, total 24 mmol/ L 20-29 Not Available [facility] ([facility]) [address] [facility] [place], [address], 10/10/2022 03:07:58 10/02/19 23 10/02/2022 COMP. METAB OLIC PANEL (14) calcium 9.6 mg/dL 8.7-10 .2 Not Available [facility] ([facility]) [address] [facility], [address], 10/10/2022 03:07:58 10/02/19 23 10/02/2022 COMP. METAB OLIC PANEL (14) protein, total 6.9 g/dL 6.0-8. 5 Not Available [facility] ([facility]) [address] [facility] [place], [address], 10/10/2022 03:07:58 10/02/19 23 10/02/2022 COMP. METAB OLIC PANEL (14) albumin 4.8 g/dL 3.8-4. 9 Not Available [facility] ([facility]) [address] [facility], [address], 10/10/2022 03:07:58 10/02/19 23 10/02/2022 COMP. METAB OLIC PANEL (14) globulin, total 2.1 g/dL 1.5-4. 5 Not Available [facility] ([facility]) [address] [place], [address], 10/10/2022 03:07:58 10/02/19 23 10/02/2022 COMP. METAB OLIC PANEL (14) A/G ratio 2.3 1.2-2. 2 above high normal Not Available [facility] ([facility]) [address] [facility] [place], [address], 10/10/2022 03:07:58 10/02/19 23 10/02/2022 COMP. METAB OLIC PANEL (14) bilirubin, total 0.5 mg/dL 0.0-1. 2 Not Available [facility] ([facility]) [address] [facility] [place], [address], 10/10/2022 03:07:58 10/02/19 23 10/02/2022 COMP. METAB OLIC PANEL (14) alkaline phosphatase 68 IU/L 44-121 Not Available [facility]) [address] [facility], [place], [address], 10/10/2022 03:07:58 10/02/19 23 10/02/2022 COMP. METAB OLIC PANEL (14) AST (SGOT) 22 IU/L 0-40 Not Available [facility] ([facility]) [address] [facility] [place], [address], 10/10/2022 03:07:58 10/02/19 23 10/02/2022 COMP. METAB OLIC PANEL (14) ALT (SGPT) 22 IU/L 0-32 Not Available [facility] ([facility]) [address] [facility] [place], [address], 10/10/2022 03:07:58 10/02/19 23 10/02/2022 LIPID PANEL WITH LDL/H DL RATIO cholesterol, total 226 mg/dL 100-19 9 above high normal Not Available [facility] ([facility]) [address] [place], [address], 10/10/2022 03:07:58 10/02/19 23 10/02/2022 LIPID PANEL WITH LDL/H DL RATIO triglyceride s 62 mg/dL 0-149 Not Available [facility] ([facility]) [address] [place], [address], 10/10/2022 03:07:58 10/02/19 23 10/02/2022 LIPID PANEL WITH LDL/H DL RATIO HDL cholesterol 68 mg/dL >39 Not Available [facility]) [address] [place], [address], 10/10/2022 03:07:58 10/02/19 23 10/02/2022 LIPID PANEL WITH LDL/H DL RATIO VLDL cholesterol william 11 mg/dL 5-40 Not Available [facility] ([facility]) [address] [place], [address], 10/10/2022 03:07:58 10/02/19 23 10/02/2022 LIPID PANEL WITH LDL/H DL RATIO LDL chol calc (nih) 147 mg/dL 0-99 above high normal Not Available [facility] ([facility]) [address] [place], [address], 10/10/2022 03:07:58 10/02/19 23 10/02/2022 LIPID PANEL WITH LDL/H DL RATIO comment: [employer]IVE Not Available [facility] ([facility]) [address] [place], [address], 10/10/2022 03:07:58 10/02/19 23 10/02/2022 LIPID PANEL WITH LDL/H DL RATIO LDL/HDL ratio 2.2 ratio 0.0-3. 2 LDL/H DL Ratio Men Women 1/2 Avg.R isk 1.0 1.5 Avg.R isk 3.6 3.2 2X Avg.R isk 6.2 5.0 3X Avg.R isk 8.0 6.1 Not Available [facility] ([facility]) [address] [facility] [place], [address], 10/10/2022 03:07:58 10/02/19 23 10/02/2022 THYRO ID PANEL WITH TSH TSH 1.990 uIU/m L 0.450- 4.500 Not Available [facility] ([facility]) [address] [facility], [place], [address], 10/10/2022 03:07:58 10/02/19 23 10/02/2022 THYRO ID PANEL WITH TSH thyroxine (T4) 8.5 ug/dL 4.5-12 .0 Not Available [facility] ([facility]) [address] [place], [address], 10/10/2022 03:07:58 10/02/19 23 10/02/2022 THYRO ID PANEL WITH TSH T3 uptake 26 % 24-39 Not Available [facility] ([facility]) [address] [facility], [place], [address], 10/10/2022 03:07:58 10/02/1910/02/2022 THYRO ID PANEL WITH TSH free thyroxine index 2.2 1.2-4. 9 Not Available [facility] ([facility]) [address] [facility], [place], [address], 10/10/2022 03:07:58 10/02/1910/10/2022 TESTO STERO NE, WOMEN [...] - 40 Not Available [facility] [address] [place] [address], [place], [address], 10/10/2022 03:07:59 10/02/19 23 10/02/2022 VITAM IN B12 AND FOLAT E vitamin B12 655 pg/mL 232-12 45 Not Available [facility] ([facility]) [address] [facility], [place], [address], 10/10/2022 03:07:59 10/02/1910/02/2022 VITAM IN B12 AND FOLAT E folate (folic acid), serum 17.7 NG/mL >3.0 A serum folat e january ntrat ion of less than 3.1 ng/mL is consi dered to repre sent clini william defic iency . Not Available [facility] ([facility]) [address] [facility], [place], [address], 10/10/2022 03:07:59 10/02/1910/02/2022 FSH AND LH LH 20.1 mIU/m L Adult Femal e: Folli cular phase 2.4 - 12.6 Ovula tion phase 14.0 - 95.6 Lutea l phase 1.0 - 11.4 Postm enopa usal 7.7 - 58.5 Not Available [facility] ([facility]) [address] [facility], [place], [address], 10/10/2022 03:07:59 10/02/1910/02/2022 FSH AND LH FSH 67.7 mIU/m L Adult Femal e: Folli cular phase 3.5 - 12.5 Ovula tion phase 4.7 - 21.5 Lutea l phase 1.7 - 7.7 Postm enopa usal 25.8 - 134.8 Not Available [facility] ([facility]) [address] [place], [address], 10/10/2022 03:07:59 10/02/1910/02/2022 HEMOG LOBIN A1C hemoglobin A1C 5.6 % 4.8-5. 6 Predi abete s: 5.7 - 6.4 Diabe jennyfer: >6.4 Glyce roxi contr ol for adult s with diabe jennyfer: <7.0 Not Available [facility] ([facility]) [address] [place], [address], 10/10/2022 03:08:00 10/02/1910/02/2022 VITAM IN D, 25-HY [...] um and D. Marisela coughlin [place]: [facility] . 2. Ashlee ilra MF, Kassie miller [place], Phil off-F errar i GLASS, et al. Evalu ation , treat ment, and preve ntion of vitam in D defic iency : an Endoc rine Socie ty clini william pract ice guide line. JCEM. 2010; 96(7) :1911 -30. Not Available [facility] ([facility]) [address] [facility], [place], [address], 10/10/2022 03:08:00 10/02/1910/02/2022 ESTRA DIOL estradiol 7.1 pg/mL Adult Femal e: Folli cular phase 12.5 - 166.0 Ovula tion phase 85.8 - 498.0 Lutea l phase 43.8 - 211.0 Postm enopa usal <6.0 - 54.7 Pregn dorie 1st trime ster 215.0 - >4300 .0 Sang ECLIA metho dolog y Not Available [facility] ([facility]) [address] [place], [address], 10/10/2022 03:08:01 10/02/1910/02/2022 DHEA- SULFA TE DHEA-sulfate 27.1 ug/dL 29.4-2 20.5 below low normal Not Available [facility] ([facility]) [address] [facility], [place], [address], 10/10/2022 03:08:01 10/02/19 23 10/08/2022 RF, IGA BY EIA (RDL) rf, IgA by EIA (rdl) <7 U <7 Not Available [facility] [address] [place], [address], 10/10/2022 03:08:01 10/02/1910/02/2022 ANTI- CCP AB, IGG/I GA anti-ccp Ab, IgG/IgA 4 units 0-19 Negat rk <20 Weak posit rk 20 - 39 Moder ate posit rk 40 - 59 Stron g posit rk >59 Not Available [facility] ([facility]) [address] [facility], [place], [address], 10/10/2022 03:08:02 10/02/1910/02/2022 URIC ACID uric acid 4.5 mg/dL 3.0-7. 2 Thera rahi c pierre t for gout patie nts: <6.0 Not Available [facility] ([facility]) [address] [place], [address], 10/10/2022 03:08:02 10/02/19 23 10/02/2022 ANTIN UCLEA R AB MULTI PLEX RFX 9 YULIYA direct Negati ve negati ve Not Available [facility] ([facility]) [address] [place], [address], 10/10/2022 03:08:02 10/02/1910/02/2022 SEDIM ENTAT ION RATE- WESTE RGREN sedimentatio n rate-westerg shaneka 14 mm/HR 0-40 Not Available [facility] ([facility]) [address] [place], [address], 10/10/2022 03:08:03 10/02/19 23 10/02/2022 PROGE STERO NE progesterone 0.1 NG/mL Folli cular phase 0.1 - 0.9 Lutea l phase 1.8 - 23.9 Ovula tion phase 0.1 - 12.0 Pregn ant First trime ster 11.0 - 44.3 Secon d trime ster 25.4 - 83.3 Third trime ster 58.7 - 214.0 Postm enopa usal 0.0 - 0.1 Not Available [facility] ([facility]) [address] [facility], [place], [address], 10/10/2022 03:08:03 10/02/19 23 10/02/2022 C-MIGUEL CTIVE PROTE IN, QUANT C-reactive protein, quant 4 mg/L 0-10 Not Available [facility] ([facility]) [address] [facility], [place], [address], 10/10/2022 03:08:03 Result Notes None recorded. Problems Name Problem SNOMED Code Status Onset Date Resolution Date Notes Provider Name and Address Organization Details Recorded Time Essential hypertensi on 92701038 Active 2022 MIKE DUFFY NP [address] [place] [address], [address], [place] - [facility] & [place] 3 08:27:40 Paroxysmal atrial fibrillati on 491186811 Active 2022 attributes to allergic reaction from [facility]; seen in ER once 2014 MIKE DUFFY NP [address] [place] [address], [phone] 1, [place] [facility] [place] 08:27:19 Dyspnea on exertion 91775677 Active 2022 MIKE DUFFY NP [address] [place] [address], [phone] 1, [place] [facility] [place] 09:45:52 Mixed anxiety and depressive disorder [id number] Active 2022 MIKE DUFFY NP [address] [place] [address], [phone] [facility] & [place] 09:45:55 Problem Notes None recorded. Procedures Surgical History Date Name Laterality Status Provider Name and Address Organization Details Recorded Time extraction of wisdom tooth completed Michelle HUSAIN [facility] & [place] 08/18/2022 15:09:03 Partial Hysterectomy completed Michelle HUSAIN [facility] & [place] 08/18/2022 15:09:26 [facility] [place] [facility]/2022 15:09:34 [facility] [place] 08/18/2022 15:09:46 Imaging Results None recorded. Procedure Notes None recorded. Medical Equipment None Reported. Allergies Allergen ID Allergen Name Allergen Category Reaction Reaction Severity Criticality Documentation Date Start Date Code Code System Note Provider Name and Address Organization Details Recorded Time 69317 tramadol medicatio n Not available Not available Not available 08/18/2022 20851 RxNorm Michelle deng, LINH Cameron [facility] & [place] 15:06:31 Medications Name Sig Start Date Stop [...] Updated DateTime 3 168.91 cm 32 kg/m2 77858.0 7 g 97.3 [degF] 99 % 99 % 67 /min 124 mm[Hg] 78 mm[Hg] Michelle Carbone [facility] 3 15:05:53 Date Recorded Body height Body mass index (BMI) Body weight Body temperature Oxygen saturation Oxygen saturation in Arterial blood by Pulse oximetry Heart rate Systolic blood pressure Diastolic blood pressure Provider Name and Address Organization Details Last Updated DateTime 3 168.91 cm 31.2 kg/m2 64236.1 g 97 [degF] 98 % 98 % 67 /min 145 mm[Hg] 78 mm[Hg] Michelle Carbone [facility] 3 08:03:04 Date Recorded Body height Body mass index (BMI) Body weight Body temperature Oxygen saturation Oxygen saturation in Arterial blood by Pulse oximetry Heart rate Respiratory rate Systolic blood pressure Diastolic blood pressure Provider Name and Address Organization Details Last Updated DateTime 3 168.91 cm 30.9 kg/m2 50340.0 8 g 97.3 [degF] 100 % 100 % 77 /min 16 /min 122 mm[Hg] 85 mm[Hg] Judith MELTON [facility] & [place] 3 09:16:16 Social History Question Answer Notes LastModified by Organizat ion Details LastModified Time Tobacco Smoking Status Former Smoker Michelle Carbone [facility] [place] [place] - [facility] & [place] 08/18/2022 15:08:38 What Is Your Level Of Caffeine Consumption? Heavy Information not available 08/18/2022 When Did You Quit Smoking? 16+yearssinc elastcigaret te Information not available 08/18/2022 What Was The Date Of Your Most Recent Tobacco Screening? 08/18/2022 Information not available 08/18/2022 At What Age Did You Start Smoking Tobacco? 22 Information not available 08/18/2022 Has Tobacco Cessation Counseling Been Provided? No Information not available 08/18/2022 How Many Years Have You Smoked Tobacco? 11 Information not available 08/18/2022 How Many Days In The Past Year Have You Consumed 4 Or More Drinks? 0 Information not available 08/18/2022 Sex: Unknown Functional Status Question Answer Note LastModified by Organizat ion Details LastModified Time Do you use any illicit or recreational drugs? No Information not available 08/18/2022 Do you or have you ever used any other forms of tobacco or nicotine? No Information not available 08/18/2022 What is your level of alcohol consumption? Occasional Information not available 08/18/2022 Mental Status None recorded. Family History Relationship Description Onset Age of this Age Resolved Age Notes LastModified by Organization Details LastModified Time Mother Malignant tumor of breast jkiskaden Not available 2022 15:07:28 Mother Hypercholest pippa vernon Not available 2022 16:42:31 Father Myocardial infarction Deceas ed jkiskaden Not available 08/18/2022 15:07:38 Father Chronic obstructive pulmonary disease deceas ed jkiskaden Not available 08/18/2022 15:07:48 Brother Hypercholest pippa vernon Not available 2022 16:42:31 Medical History Condition Response Hypertension Y Gynecological HistoryNo gynecological history recorded. Obstetrics History GPAL:G 0 P 0 0 0 0 Past Encounters Encounter ID Performer Location Encounter Start Date Encounter Closed Date Diagnosis/Indication Diagnosis SNOMED-CT Code Diagnosis ICD10 Code Diagnosis Note [id number] MIKE DUFFY NP [id number] [address] 08/18/2022 14:19:50 08/18/2022 16:51:14 Patient new to provider [id number] 58422 Z76.89 reviewed hx per patientlab s from May reviewed which was CBC and CMP and left foot xray Essential hypertension 82485226 I10 decreased from 10 mg to current 5 mgwishes to try to come of off; would like to try pink grapefruit juice to help with lowering will keep eye on and make sure meeting goal of <130/90 Dysuria 05677749 R30.0 awaiting culturetx for UTIdiscuss ed medication s as prescribed f/u if symptoms persist or worsen Mixed anxi ety and depressive disorder 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 History of hysterectomy 284712209 Z90.711 Dyspareunia 50714092 N94 .10 awaiting lab workdiscus sed lubricatio n; and reason for loss of estrogen after hysterecto my Essential hypertension 81256410 I10 educated on goal of less than 130/90home readings controlled advised low sodium diet, healthy lifestyle including exercise as ablecontin ue current medication regimenER if any symptoms such as chest pain, shortness of breath Mixed hyperlipidemia 267 976382 E78.2 tried cholestero l medication in past- unknown which one- unable to tolerate joint painPatien t advised to exercise, eat a prudent diet and lose weight as appropriat e. Pain of mu ltiple joints 96633245 M25.50 joint changes of hand and feet bilateralo n ibuprofen since [id number] MIKE DUFFY NP [facility] [address] [place] [address] 10/24/2022 09:08:30 10/24/2022 09:43:31 Dyspnea on exertion 63996086 R06.09 ER if any urgent signs or symptoms arisecardi ology referral placed; needs cardiac workup Essential hypertension 51497877 I10 educated on goal of less than 130/90avoi d sudafed as can increaseho me blood pressure log reviewed which shows systolic 120 to 160discuss ed increasing back to lisinopril 10mgadvise d low sodium diet, healthy lifestyle including exercise as ablecontin ue current medication regimenER if any symptoms such as chest pain, shortness of breath Mixed anxi ety and depressive disorder 833001658 F41.8 wean wellbutrin ; discussed and verbalizes understand ingdenies SI/HI Health Concerns Section Related Observation LastModified by Organization Detai ls LastModified Time None Recorded Concern Status LastModified by Organization Details LastModified Time None Recorded Advance Directives Directive None Recorded Payers Insurance Date Sequence Insurance Name Policy Number Policy Allison Covered Member ID Allison Member ID Guarantor Name 10/02/2022 1 SB () Omayra Cross [id number] Omayra Tran 10/02/2022 1 *SELF PAY* Joanna Tran 10/27/2022 [employer] [facility] Omayra Tran [id number] Omayra Tran Notes Date Note Type Note [...] changes and cyst which is seeing Dr. Annabelle dickey, podiatry; plans to have surgery in March. [...] UTD on screenings MIKE DUFFY NP [address] [place], [address], [facility] & [place] 08/18/2022 16:45:55 10/01/2022 text/html Patient presents for annual visit.Vision screening: needs eye doctorDental screening: has one scheduledAny falls, fractures surgeries: deniesSpecialist: hourly caregiver, winter operation of left footColonoscopy: denies colonoscopy [...] since the . MIKE DUFFY NP [address] [place], [address], [place] - [facility] 10/01/2022 10:15:04 10/24/2022 text/html 57 yr old [...] which shows systolic 120 to 160. MIKE DUFFY NP [address] [place] [address], [address], [place] - [facility] 10/26/2022 18:13:39 OBGyn Episode No OBEpisode recorded.
== END 2024-10-19 23:59 | disposition home or self-care (01) ==
LOC: RAD 13:09
PROVIDERS: PCP Family Medicine; Visit Provider Physician Assistant
DX: M17.11 Unilateral primary osteoarthritis, right knee (principal); M25.562 Pain in left knee
CPT/HCPCS: 73562

== ENCOUNTER 2024-12-07 07:42 | Outpatient (CLI) | payer OTHER, SELFPAY ==
--- OUTSIDE RECORDS SUMMARY | 2024-12-07 07:44 | XMS_ITS | Data Portability ---
Author Organization [facility] Address [address] [place] [address] Assessment No assessment recorded. Plan of Treatment Reminders Order Date Submit Date Provider Last Modified By Organization Details Last Modified Time Details Appointments None recorded. Lab progestero ne, serum 2022 023 [facility], [address], [place], [address], 3 10:51:57 estradiol, serum 2022 023 [facility], [address], [address], [place], [address], 3 10:51:53 lh + FSH, serum 2022 023 [facility], [address], [place], [address], 3 10:51:52 dhea-sulfa te, serum 2022 023 [facility], [address], [place], [address], 3 10:51:54 testostero ne, total, serum 2022 023 jkiskaden [facility], [address], [address], [place], [address], 3 09:51:05 lipid panel, serum 05/10/ 2023 05/10/2 023 Y[facility]I [facility], [address], [place], [address], 3 10:51:50 C reactive protein, QN, serum or plasma 2022 023 [facility], [address], [place], [address], 3 10:51:57 ESR (erythrocy te sedimentat ion rate), blood 2022 023 [facility], [address], [place], [address], 3 10:51:56 YULIYA (antinucle ar antibodies ) screen, serum 2022 023 [facility], [address], [address], [place], [address], 3 10:51:56 rf (rheumatoi d factor) iga, serum 2022 023 [facility], [address], [place], [address], 3 10:51:54 ccp (cyclic citrullina jeison peptide) iga+igg, serum 2022 023 [facility], [address], [place], [address], 3 10:51:55 uric acid, serum or plasma 2022 023 [facility], [address], [place], [address], 3 10:51:55 vitamin B12 + folate, serum or blood 2022 023 [facility], [address], [place], [address], 3 10:51:51 iron + TIBC + ferritin, serum 2022 023 [facility], [address], [place], [address], 3 10:51:49 CBC w/ auto diff 2022 023 [facility], [address], [place], [address], 3 10:51:58 HbA1c (hemoglobi n A1c), blood 2022 023 [facility], [address], [place], [address], 3 10:51:52 CMP, serum or plasma 2022 023 [facility], [address], [place], [address], 3 10:51:49 thyroid panel, serum 2022 023 [facility], [address], [place], [address], 3 10:51:50 vitamin D, 25-hydroxy , total, serum 2022 023 [facility], [address], [place], [address], 3 10:51:53 culture, urine 2022 023 [facility], [address], [place], [address], 3 16:12:19 urinalysis , dipstick 2022 023 [facility] [place] available 3 15:57:[address] referral 2022 023 Gunner Degroot MD, [address], [place], [address], 08:03:49 Procedures None recorded. Surgeries None recorded. Imaging None recorded. Medication Orders Macrobid 100 mg capsule 2022 023 sallie [facility], [facility] [place], [address], 08:03:19 fluconazol e 150 mg tablet 2022 023 [facility], [address], [place], [address], 08:16:58 Wellbutrin XL 150 mg 24 hr tablet, extended release 2022 023 [facility], [facility] [place], [address], 16:39:36 Patient TargetsNo targets recorded. Patient InstructionsNo instructions recorded. 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) [address] [facility], [place], [address], 08/22/2022 16:12:19 08/19/1908/22/2022 URINE CULTU RE, ROUTI [...] Prote us mirab ilis. Not Available [facility] ([facility]) [address] [facility], [place], [address], 08/22/2022 16:12:19 08/19/19 23 08/22/2022 URINE CULTU [...] thopr im/Burch lfa S Not Available [facility] ([facility]) [address] [facility], [place], [address], 08/22/2022 16:12:19 08/19/19 23 08/18/2022 urina lysis , dipst ick Leukocytes (reference range) modera te Not Available [address], [address], 08/18/2022 15:53:12 08/19/19 23 08/18/2022 urina lysis , dipst ick Nitrite (reference range:) negati ve Not Available [address], [address], 08/18/2022 15:53:12 08/19/19 23 08/18/2022 urina lysis , dipst ick Urobilinogen (reference range) 0.2 Not Available [address], [address], 08/18/2022 15:53:12 08/19/19 23 08/18/2022 urina lysis , dipst ick Protein (reference range) negati ve Not Available [address], [address], 08/18/2022 15:53:12 08/19/19 23 08/18/2022 urina lysis , dipst ick pH (reference range 5-8.5) 6.5 Not Available [address], [address], 08/18/2022 15:53:12 08/19/19 23 08/18/2022 urina lysis , dipst ick Blood (reference range:) non-He molyze d: Trace Not Available [address], [address], 08/18/2022 15:53:12 08/19/19 23 08/18/2022 urina lysis , dipst ick Specific Sunset (reference range) 1.025 Not Available [address], [address], 08/18/2022 15:53:12 08/19/19 23 08/18/2022 urina lysis , dipst ick Ketone (reference range) negati ve Not Available [address], [address], 08/18/2022 15:53:12 08/19/19 23 08/18/2022 urina lysis , dipst ick Bilirubin (reference range) negati ve Not Available [address], [address], 08/18/2022 15:53:12 08/19/19 23 08/18/2022 urina lysis , dipst ick Glucose (reference range) negati ve Not Available [address], [address], 08/18/2022 15:53:12 08/19/19 23 08/18/2022 urina lysis , dipst ick Color (reference range: yellow-brown ) Yellow Not Available [address], [address], 08/18/2022 15:53:12 10/02/19 23 10/02/2022 FE+TI BC+FE R iron bind.cap.(TI BC) 256 ug/dL 250-45 0 Not Available [facility] ([facility]) [address] [place], [address], 10/10/2022 03:07:56 10/02/19 23 10/02/2022 FE+TI BC+FE R UIBC 152 ug/dL 131-42 5 Not Available [facility] ([facility]) [address] [place], [address], 10/10/2022 03:07:56 10/02/19 23 10/02/2022 FE+TI BC+FE R iron 104 ug/dL 27-159 Not Available [facility] ([facility]) [address] [place], [address], 10/10/2022 03:07:56 10/02/19 23 10/02/2022 FE+TI BC+FE R iron saturation 41 % 15-55 Not Available [facility] [address] [place], [address], 10/10/2022 03:07:56 10/02/19 23 10/02/2022 FE+TI BC+FE R ferritin 263 NG/mL 15-150 above high normal Not Available [facility] ([facility]) [address] [facility], [place], [address], 10/10/2022 03:07:56 10/02/19 23 10/02/2022 CBC WITH DIFFE RENTI AL/PL ATELE T WBC 4.6 x10e3 /uL 3.4-10 .8 Not Available [facility] ([facility]) [address] [facility], [place], [address], 10/10/2022 03:07:57 10/02/19 23 10/02/2022 CBC WITH DIFFE RENTI AL/PL ATELE T RBC 4.71 x10e6 /uL 3.77-5 .28 Not Available [facility] ([facility]) [address] [facility], [place], [address], 10/10/2022 03:07:57 10/02/19 23 10/02/2022 CBC WITH DIFFE RENTI AL/PL ATELE T hemoglobin 14.4 g/dL 11.1-1 5.9 Not Available [facility] ([facility]) [address] [facility], [place], [address], 10/10/2022 03:07:57 10/02/19 23 10/02/2022 CBC WITH DIFFE RENTI AL/PL ATELE T hematocrit 42.7 % 34.0-4 6.6 Not Available [facility] ([facility]) [address] [facility], [place], [address], 10/10/2022 03:07:57 10/02/1910/02/2022 CBC WITH DIFFE RENTI AL/PL ATELE T MCV 91 fL 79-97 Not Available [facility]) [address] [facility], [place], [address], 10/10/2022 03:07:57 10/02/19 23 10/02/2022 CBC WITH DIFFE RENTI AL/PL ATELE T MCH 30.6 pg 26.6-3 3.0 Not Available [facility] ([facility]) [address] [facility], [place], [address], 10/10/2022 03:07:57 10/02/19 23 10/02/2022 CBC WITH DIFFE RENTI AL/PL ATELE T MCHC 33.7 g/dL 31.5-3 5.7 Not Available [facility] ([facility]) [address] [facility], [place], [address], 10/10/2022 03:07:57 10/02/19 23 10/02/2022 CBC WITH DIFFE RENTI AL/PL ATELE T RDW 12.4 % 11.7-1 5.4 Not Available [facility] ([facility]) [address] [facility], [place], [address], 10/10/2022 03:07:57 10/02/19 23 10/02/2022 CBC WITH DIFFE RENTI AL/PL ATELE T platelets 211 x10e3 /uL 150-45 0 Not Available [facility] ([facility]) [address] [facility], [place], [address], 10/10/2022 03:07:57 10/02/1910/02/2022 CBC WITH DIFFE RENTI AL/PL ATELE T neutrophils 60 % not estab. Not Available [facility] ([facility]) [address] [facility], [place], [address], 10/10/2022 03:07:57 10/02/19 23 10/02/2022 CBC WITH DIFFE RENTI AL/PL ATELE T lymphs 26 % not estab. Not Available [facility] ([facility]) [address] [facility], [place], [address], 10/10/2022 03:07:57 10/02/19 23 10/02/2022 CBC WITH DIFFE RENTI AL/PL ATELE T monocytes 7 % not estab. Not Available [facility] ([facility]) [address] [facility], [place], [address], 10/10/2022 03:07:57 10/02/19 23 10/02/2022 CBC WITH DIFFE RENTI AL/PL ATELE T eos 6 % not estab. Not Available [facility] ([facility]) [address] [place], [address], 10/10/2022 03:07:57 10/02/19 23 10/02/2022 CBC WITH DIFFE RENTI AL/PL ATELE T basos 1 % not estab. Not Available [facility] (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 [address] [place], [address], 10/10/2022 03:07:57 10/02/19 23 10/02/2022 CBC WITH DIFFE RENTI AL/PL ATELE T neutrophils (absolute) 2.8 x10e3 /uL 1.4-7. 0 Not Available [facility] ([facility]) [address] [place], [address], 10/10/2022 03:07:57 10/02/19 23 10/02/2022 CBC WITH DIFFE RENTI AL/PL ATELE T lymphs (absolute) 1.2 x10e3 /uL 0.7-3. 1 Not Available [facility] ([facility]) [address] [place], [address], 10/10/2022 03:07:57 10/02/19 23 10/02/2022 CBC WITH DIFFE RENTI AL/PL ATELE T monocytes(ab solute) 0.3 x10e3 /uL 0.1-0. 9 Not Available [facility] ([facility]) [address] [place], [address], 10/10/2022 03:07:57 10/02/19 23 10/02/2022 CBC WITH DIFFE RENTI AL/PL ATELE T eos (absolute) 0.3 x10e3 /uL 0.0-0. 4 Not Available [facility] ([facility]) [address] [facility], [place], [address], 10/10/2022 03:07:57 10/02/19 23 10/02/2022 CBC WITH DIFFE RENTI AL/PL ATELE T baso (absolute) 0.0 x10e3 /uL 0.0-0. 2 Not Available [facility] ([facility]) [address] [facility], [place], [address], 10/10/2022 03:07:57 10/02/19 23 10/02/2022 CBC WITH DIFFE RENTI AL/PL ATELE T immature granulocytes 0 % not estab. Not Available [facility]) [address] [facility], [place], [address], 10/10/2022 03:07:57 10/02/1910/02/2022 CBC WITH DIFFE RENTI AL/PL ATELE T immature grans (abs) 0.0 x10e3 /uL 0.0-0. 1 Not Available [facility] ([facility]) [address] [facility], [place], [address], 10/10/2022 03:07:57 10/02/19 23 10/02/2022 CBC WITH DIFFE RENTI AL/PL ATELE T NRBC WELDING PROCESS SPECIALIST Not Available [facility] ([facility]) [address] [facility], [place], [address], 10/10/2022 03:07:57 10/02/1910/02/2022 CBC WITH DIFFE RENTI AL/PL ATELE T hematology comments: WELDING PROCESS SPECIALIST Not Available [facility]) [address] [facility], [place], [address], 10/10/2022 03:07:57 10/02/19 23 10/02/2022 COMP. METAB OLIC PANEL (14) glucose 91 mg/dL 70-99 Not Available [facility] ([facility]) [address] [place], [address], 10/10/2022 03:07:58 10/02/19 23 10/02/2022 COMP. METAB OLIC PANEL (14) BUN 13 mg/dL 6-24 Not Available [facility] ([facility]) [address] [place], [address], 10/10/2022 03:07:58 10/02/19 23 10/02/2022 COMP. METAB OLIC PANEL (14) creatinine 0.74 mg/dL 0.57-1 .00 Not Available [facility] ([facility]) [address] [place], [address], 10/10/2022 03:07:58 10/02/19 23 10/02/2022 COMP. METAB OLIC PANEL (14) eGFR 95 mL/mi n/1.7 3 >59 Not Available [facility] ([facility]) [address] [place], [address], 10/10/2022 03:07:58 10/02/19 23 10/02/2022 COMP. METAB OLIC PANEL (14) BUN/creatini ne ratio 18 9-23 Not Available [facility] [address] [place], [address], 10/10/2022 03:07:58 10/02/19 23 10/02/2022 COMP. METAB OLIC PANEL (14) sodium 139 mmol/ L 134-14 4 Not Available [facility] ([facility]) [address] [place], [address], 10/10/2022 03:07:58 10/02/19 23 10/02/2022 COMP. METAB OLIC PANEL (14) potassium 4.9 mmol/ L 3.5-5. 2 Not Available [facility] ([facility]) [address] [place], [address], 10/10/2022 03:07:58 10/02/19 23 10/02/2022 COMP. METAB OLIC PANEL (14) chloride 102 mmol/ L 96-106 Not Available [facility]) [address] [place], [address], 10/10/2022 03:07:58 10/02/19 23 10/02/2022 COMP. METAB OLIC PANEL (14) carbon dioxide, total 24 mmol/ L 20-29 Not Available [facility]) [address] [place], [address], 10/10/2022 03:07:58 10/02/19 23 10/02/2022 COMP. METAB OLIC PANEL (14) calcium 9.6 mg/dL 8.7-10 .2 Not Available [facility]) [address] [place], [address], 10/10/2022 03:07:58 10/02/19 23 10/02/2022 COMP. METAB OLIC PANEL (14) protein, total 6.9 g/dL 6.0-8. 5 Not Available [facility] [address] [facility] [place], [address], 10/10/2022 03:07:58 10/02/19 23 10/02/2022 COMP. METAB OLIC PANEL (14) albumin 4.8 g/dL 3.8-4. 9 Not Available [facility] [address] [facility] [place], [address], 10/10/2022 03:07:58 10/02/19 23 10/02/2022 COMP. METAB OLIC PANEL (14) globulin, total 2.1 g/dL 1.5-4. 5 Not Available [facility]) [address] [place], [address], 10/10/2022 03:07:58 10/02/19 23 10/02/2022 COMP. METAB OLIC PANEL (14) A/G ratio 2.3 1.2-2. 2 above high normal Not Available [facility] ([facility]) [address] [facility], [place], [address], 10/10/2022 03:07:58 10/02/19 23 10/02/2022 COMP. METAB OLIC PANEL (14) bilirubin, total 0.5 mg/dL 0.0-1. 2 Not Available [facility]) [address] [place], [address], 10/10/2022 03:07:58 10/02/19 23 10/02/2022 COMP. METAB OLIC PANEL (14) alkaline phosphatase 68 IU/L 44-121 Not Available [facility] [address] [facility], [place], [address], 10/10/2022 03:07:58 10/02/19 23 10/02/2022 COMP. METAB OLIC PANEL (14) AST (SGOT) 22 IU/L 0-40 Not Available [facility]) [address] [place], [address], 10/10/2022 03:07:58 10/02/19 23 10/02/2022 COMP. METAB OLIC PANEL (14) ALT (SGPT) 22 IU/L 0-32 Not Available [facility]) [address] [place], [address], 10/10/2022 03:07:58 10/02/19 23 10/02/2022 LIPID PANEL WITH LDL/H DL RATIO cholesterol, total 226 mg/dL 100-19 9 above high normal Not Available [facility]) [address] [place], [address], 10/10/2022 03:07:58 10/02/19 23 10/02/2022 LIPID PANEL WITH LDL/H DL RATIO triglyceride s 62 mg/dL 0-149 Not Available [facility]) [address] [facility], [place], [address], 10/10/2022 03:07:58 10/02/19 23 10/02/2022 LIPID PANEL WITH LDL/H DL RATIO HDL cholesterol 68 mg/dL >39 Not Available [facility] [address] [place], [address], 10/10/2022 03:07:58 10/02/19 23 10/02/2022 LIPID PANEL WITH LDL/H DL RATIO VLDL cholesterol william 11 mg/dL 5-40 Not Available [facility]) [address] [place], [address], 10/10/2022 03:07:58 10/02/19 23 10/02/2022 LIPID PANEL WITH LDL/H DL RATIO LDL chol calc ([facility]) 147 mg/dL 0-99 above high normal Not Available [facility]) [address] [place], [address], 10/10/2022 03:07:58 10/02/19 23 10/02/2022 LIPID PANEL WITH LDL/H DL RATIO comment: WELDING PROCESS SPECIALIST Not Available [facility]) [address] [place], [address], 10/10/2022 03:07:58 10/02/19 23 10/02/2022 LIPID PANEL WITH LDL/H DL RATIO LDL/HDL ratio 2.2 ratio 0.0-3. 2 LDL/H DL Ratio Men Women 1/2 Avg.R isk 1.0 1.5 Avg.R isk 3.6 3.2 2X Avg.R isk 6.2 5.0 3X Avg.R isk 8.0 6.1 Not Available [facility] ([facility]) [address] [place], [address], 10/10/2022 03:07:58 10/02/19 23 10/02/2022 THYRO ID PANEL WITH TSH TSH 1.990 uIU/m L 0.450- 4.500 Not Available [facility]) [address] [place], [address], 10/10/2022 03:07:58 10/02/19 23 10/02/2022 THYRO ID PANEL WITH TSH thyroxine (T4) 8.5 ug/dL 4.5-12 .0 Not Available [facility] ([facility]) [address] [place], [address], 10/10/2022 03:07:58 10/02/19 23 10/02/2022 THYRO ID PANEL WITH TSH T3 uptake 26 % 24-39 Not Available [facility]) [address] [place], [address], 10/10/2022 03:07:58 10/02/1910/02/2022 THYRO ID PANEL WITH TSH free thyroxine index 2.2 1.2-4. 9 Not Available [facility] ([facility]) [address] [place], [address], 10/10/2022 03:07:58 10/02/1910/10/2022 TESTO STERO NE, WOMEN [...] - 40 Not Available [facility] [address] [place] [address], [place], [address], 10/10/2022 03:07:59 10/02/19 10/02/2022 VITAM IN B12 AND FOLAT E vitamin B12 655 pg/mL 232-12 45 Not Available [facility]) [address] [place], [address], 10/10/2022 03:07:59 10/02/19 23 10/02/2022 VITAM IN B12 AND FOLAT E folate (folic acid), serum 17.7 NG/mL >3.0 A serum folat e january ntrat ion of less than 3.1 ng/mL is consi dered to repre sent clini william defic iency . Not Available [facility] ([facility]) [address] [place], [address], 10/10/2022 03:07:59 10/02/1910/02/2022 FSH AND LH LH 20.1 mIU/m L Adult Femal e: Folli cular phase 2.4 - 12.6 Ovula tion phase 14.0 - 95.6 Lutea l phase 1.0 - 11.4 Postm enopa usal 7.7 - 58.5 Not Available [facility] ([facility]) [address] [facility], [place], [address], 10/10/2022 03:07:59 10/02/1910/02/2022 FSH AND LH FSH 67.7 mIU/m L Adult Femal e: Folli cular phase 3.5 - 12.5 Ovula tion phase 4.7 - 21.5 Lutea l phase 1.7 - 7.7 Postm enopa usal 25.8 - 134.8 Not Available [facility] ([facility]) [address] [place], [address], 10/10/2022 03:07:59 10/02/1910/02/2022 HEMOG LOBIN A1C hemoglobin A1C 5.6 % 4.8-5. 6 Predi abete s: 5.7 - 6.4 Diabe jennyfer: >6.4 Glyce roxi contr ol for adult s with diabe jennyfer: <7.0 Not Available [facility] ([facility]) [address] [facility], [place], [address], 10/10/2022 03:08:00 10/02/19 23 10/02/2022 VITAM IN D, 25-HY DROXY vitamin D, [...] um and D. Marisela coughlin [place]: The [facility] . 2. Ashlee lira MF, Kassie miller [place], Phil off-F errar i GLASS, et al. Evalu ation , treat ment, and preve ntion of vitam in D defic iency : an Endoc rine Socie ty clini william pract ice guide line. JCEM. 2010; 96(7) :1911 -30. Not Available [facility] ([facility]) [address] [facility], [place], [address], 10/10/2022 03:08:00 10/02/1910/02/2022 ESTRA DIOL estradiol 7.1 pg/mL Adult Femal e: Folli cular phase 12.5 - 166.0 Ovula tion phase 85.8 - 498.0 Lutea l phase 43.8 - 211.0 Postm enopa usal <6.0 - 54.7 Pregn dorie 1st trime ster 215.0 - >4300 .0 Sang ECLIA metho dolog y Not Available [facility] ([facility]) [address] [facility], [place], [address], 10/10/2022 03:08:01 10/02/1910/02/2022 DHEA- SULFA TE DHEA-sulfate 27.1 ug/dL 29.4-2 20.5 below low normal Not Available [facility]) [address] [facility], [place], [address], 10/10/2022 03:08:01 10/02/19 23 10/08/2022 RF, IGA BY EIA (RDL) rf, IgA by EIA (rdl) <7 U <7 Not Available [facility] [address] [place], [address], 10/10/2022 03:08:01 10/02/1910/02/2022 ANTI- CCP AB, IGG/I GA anti-ccp Ab, IgG/IgA 4 units 0-19 Negat rk <20 Weak posit rk 20 - 39 Moder ate posit rk 40 - 59 Stron g posit rk >59 Not Available [facility] ([facility]) [address] [facility], [place], [address], 10/10/2022 03:08:02 10/02/1910/02/2022 URIC ACID uric acid 4.5 mg/dL 3.0-7. 2 Thera rahi c pierre t for gout patie nts: <6.0 Not Available [facility] ([facility]) [address] [place], [address], 10/10/2022 03:08:02 10/02/1910/02/2022 ANTIN UCLEA R AB MULTI PLEX RFX 9 YULIYA direct Negati ve negati ve Not Available [facility] ([facility]) [address] [place], [address], 10/10/2022 03:08:02 10/02/1910/02/2022 SEDIM ENTAT ION RATE- WESTE RGREN sedimentatio n rate-westerg shaneka 14 mm/HR 0-40 Not Available [facility]) [address] [facility], [address], 10/10/2022 03:08:03 10/02/1910/02/2022 PROGE STERO NE progesterone 0.1 NG/mL Folli cular phase 0.1 - 0.9 Lutea l phase 1.8 - 23.9 Ovula tion phase 0.1 - 12.0 Pregn ant First trime ster 11.0 - 44.3 Secon d trime ster 25.4 - 83.3 Third trime ster 58.7 - 214.0 Postm enopa usal 0.0 - 0.1 Not Available [facility] ([facility]) [address] [facility], [place], [address], 10/10/2022 03:08:03 10/02/1910/02/2022 C-MIGUEL CTIVE PROTE IN, QUANT C-reactive protein, quant 4 mg/L 0-10 Not Available [facility]) [address] [facility], [place], [address], 10/10/2022 03:08:03 Result Notes None recorded. Problems Name Problem SNOMED Code Status Onset Date Resolution Date Notes Provider Name and Address Organization Details Recorded Time Essential hypertensi on 49880251 Active 2022 MIKE DUFFY NP [address] [place], [address], [place] - [facility] - [place] & [place] 3 08:27:40 Paroxysmal atrial fibrillati on 515134322 Active 2022 attributes to allergic reaction from [facility]; seen in ER once 2014 MIKE DUFFY NP [address] [place], [address], [place] [facility] [place] 3 08:27:19 Dyspnea on exertion 73431782 Active 2022 MIKE DUFFY NP [address] [place], [address], [place] [facility] [place] 3 09:45:52 Mixed anxiety and depressive disorder 466586656 Active 2022 MIKE DUFFY NP [address] [place] [address], [place], [address] [facility] LINH RODRIGUE [facility] & [place] 09:45:55 Problem Notes None recorded. Procedures Surgical History Date Name Laterality Status Provider Name and Address Organization Details Recorded Time extraction of wisdom tooth completed Michelle HUSAIN [facility] & [place] 08/18/2022 15:09:03 Partial Hysterectomy completed Michelle HUSAIN [facility] & [place] 08/18/2022 15:09:26 Tubal Ligation completed Michelle HUSAIN [facility] & [place] 08/18/2022 15:09:34 Carpal Tunnel Surgery completed Michelle HUSAIN [facility] & [place] 08/18/2022 15:09:46 Imaging Results None recorded. Procedure Notes None recorded. Medical Equipment None Reported. Allergies Allergen ID Allergen Name Allergen Category Reaction Reaction Severity Criticality Documentation Date Start Date Code Code System Note Provider Name and Address Organization Details Recorded Time 44359 tramadol medicatio n Not available Not available Not available 08/18/2022 16306 RxNorm Michelle deng, [facility] [place] 15:06:31 Medications Name Sig Start Date Stop [...] blood by Pulse oximetry Heart rate Systolic And Diastolic Provider Name and Address Organization Details Last Updated DateTime 3 168.91 cm 32 kg/m2 35456.0 7 g 97.3 [degF] 99 % 99 % 67 /min 124/78 mm[Hg] Michelle MELTON [facility] & [place] 3 15:05:53 Date Recorded Body height Body mass index (BMI) Body weight Body temperature Oxygen saturation Oxygen saturation in Arterial blood by Pulse oximetry Heart rate Systolic And Diastolic Provider Name and Address Organization Details Last Updated DateTime 3 168.91 cm 31.2 kg/m2 00394.1 g 97 [degF] 98 % 98 % 67 /min 145/78 mm[Hg] Michelle MELTON [facility] & [place] 3 08:03:04 Date Recorded Body height Body mass index (BMI) Body weight Body temperature Oxygen saturation Oxygen saturation in Arterial blood by Pulse oximetry Heart rate Respiratory rate Systolic And Diastolic Provider Name and Address Organization Details Last Updated DateTime 3 168.91 cm 30.9 kg/m2 34454.0 8 g 97.3 [degF] 100 % 100 % 77 /min 16 /min 122/85 mm[Hg] Judith MELTON [facility] & [place] 3 09:16:16 Social History Question Answer Notes LastModified by Organizat ion Details LastModified Time Tobacco Smoking Status Former Smoker Michelle Carbone null, [place] - [facility] - [place] & [place] 08/18/2022 15:08:38 What Is Your Level Of [...] breast [email or web address] Not available 2022 15:07:28 Mother Hypercholesamy vernon Not available 2022 16:42:31 Father Myocardial [...] SNOMED-CT Code Diagnosis ICD10 Code Diagnosis Note [id number] MIKE DUFFY NP [id number] [address] 08/18/2022 14:19:50 08/18/2022 16:51:14 Patient new to provider [id number] 14232 Z76.89 reviewed hx per patientlab s from May reviewed which was CBC and CMP and left foot xray Essential hypertension 73789575 I10 decreased from 10 mg to current 5 mgwishes to try to come of off; would like to try pink grapefruit juice to help with lowering will keep eye on and make sure meeting goal of <130/90 Dysuria 85859943 R30.0 awaiting culturetx for UTIdiscuss ed medication s as prescribed f/u if symptoms persist or worsen 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 History of hysterectomy 137858960 Z90.711 Dyspareunia 76143558 N94 .10 awaiting lab workdiscus sed lubricatio n; and reason for loss of estrogen after hysterecto my Essential hypertension 40441248 I10 educated on goal of less than 130/90home readings controlled advised low sodium diet, healthy lifestyle including exercise as ablecontin ue current medication regimenER if any symptoms such as chest pain, shortness of breath Mixed hyperlipidemia 267 997227 E78.2 tried cholestero l medication in past- unknown which one- unable to tolerate joint painPatien t advised to exercise, eat a prudent diet and lose weight as appropriat e. Pain of mu ltiple joints 99532080 M25.50 joint changes of hand and feet bilateralo n ibuprofen since [id number] MIKE DUFFY NP [facility] [address] [place] [address] 10/24/2022 09:08:30 10/24/2022 09:43:31 Dyspnea on exertion 26021650 R06.09 ER if any urgent signs or symptoms arisecardi ology referral placed; needs cardiac workup Essential hypertension 62793531 I10 educated on goal of less than 130/90avoi d sudafed as can increaseho me blood pressure log reviewed which shows systolic 120 to 160discuss ed increasing back to lisinopril 10mgadvise d low sodium diet, healthy lifestyle including exercise as ablecontin ue current medication regimenER if any symptoms such as chest pain, shortness of breath Mixed anxi ety and depressive disorder 909143567 F41.8 wean wellbutrin ; discussed and verbalizes understand ingdenies SI/HI Health Concerns Section Related Observation LastModified by Organization Detai ls LastModified Time None Recorded Concern Status LastModified by Organization Details LastModified Time None Recorded Advance Directives Directive None Recorded Payers Insurance Date Sequence Insurance Name Policy Number Policy Allison Covered Member ID Allison Member ID Guarantor Name 10/02/2022 1 SB (SB) Omayra Cross [id number] Omayra Tran 10/02/2022 1 *SELF PAY* Joanna Tran 10/27/2022 [employer] [facility] Omayra Tran [id number] Omayra Tran Notes Date Note Type Note [...] changes and cyst which is seeing Dr. Aalnis for, podiatry; plans to have surgery in [...] UTD on screenings MIKE DUFFY NP [address] [place], [address], [facility] & [place] 08/18/2022 16:45:55 10/01/2022 text/html Patient presents for annual visit.Vision screening: needs eye doctorDental screening: has one scheduledAny falls, fractures surgeries: deniesSpecialist: car wiper, winter operation of left footColonoscopy: denies colonoscopy [...] since the . MIKE DUFFY NP [address] [facility], [place], [address], [facility] & [place] 10/01/2022 10:15:04 10/24/2022 text/html 57 yr old [...] systolic 120 to 160. MIKE DUFFY NP [address] [place] [address], [id number] - [facility] - [place] & [place] 10/26/2022 18:13:39 OBGyn Episode No OBEpisode recorded.
--- OUTSIDE RECORDS SUMMARY | 2024-12-07 07:44 | XMS_ITS | Clinical Summary ---
Author Organization Healthcare Address [address] [place] [address] Care Team Providers Care Link Fabric Machine Operator Name Role Phone Tangela Topete APRN Primary Care Provider [phone] Allergies No known active allergies Medications methocarbamol (Robaxin) 750 MG tablet TAKE 1 TABLET 3 TIMES DAILY. 08/09/2020 Active lisinopril 10 MG tablet TAKE 1 TABLET BY MOUTH DAILY 08/08/2020 Active ibuprofen 800 MG tablet 08/06/2020 Active estradiol (Estrace) 0.1 MG/GM vaginal cream 08/09/2020 Active atorvastatin (Lipitor) 10 MG tablet 05/08/2020 Active Social History Tobacco Use Types Packs/Day Years Used Date Smoking Tobacco: Never Smokeless Tobacco: Never PHQ-2 Answer Date Recorded Patient Health Questionnaire-2 Score 0 01/24/2021 Comments Unknown Sex and Gender Information Value Date Recorded Sex Assigned at Not on file Legal Sex Female 8:10 PM EDT Gender Identity Not on file Sexual Orientation Not on file Last Filed Vital Signs Vital Sign Reading Time Taken Comments Blood Pressure 137/85 01/24/2021 4:40 PM EDT Pulse 78 01/24/2021 4:40 PM EDT Temperature 36.3 C (97.4 F) 01/24/2021 4:40 PM EDT Respiratory Rate 16 01/24/2021 4:40 PM EDT Oxygen Saturation - - Inhaled Oxygen Concentration - - Weight 90.7 kg (200 lb) 01/24/2021 4:40 PM EDT Height 170.2 cm (5' 7 ) 01/24/2021 4:40 PM EDT Body Mass Index 31.32 01/24/2021 4:40 PM EDT Plan of Treatment Health Maintenance Due Date Last Done Comments [facility]-Depression Screening 1966 [facility]-/Child/Adol SDOH Screenings 1966 UKY- SDOH Screenings 1984 [facility]Y-Adult SDOH Screenings 1984 UKY-DTaP,Tdap,and Td Vaccine s (1 - Tdap) 1985 [facility]Y-Hepatitis B Vaccines (1 of 3 - 19+ 3-dose series) 1985 [facility]Y-Pap Smear 1987 [facility]-Cervical Cancer Screening 1996 UKY-HPV/Cotest 1996 CT Colonography 2011 Colonoscopy 2011 FIT-DNA 2011 FIT 2011 FOBT 2011 Sigmoidoscopy 2011 UKY-Colorectal Cancer Screening 2011 UKY-Pneumococcal Vaccine: 50 + Years (1 of 1 - PCV) 2016 UKY-Zoster Vaccines (1 of 2) 2016 [id number] Vaccine (1 - 20 24-25 season) 2024 UKY-Influenza Vaccine (#1) 2025 HPV Vaccines Aged Out No longer eligi ble based on patient's age to complete this topic UKY-HIB Vaccines Aged Out No longer e ligible based on patient's age to complete this topic UKY-Hepatitis A Vaccines Aged Out No longer eligible based on patient's age to complete this topic UKY-IPV Vaccines Aged Out No longer e ligible based on patient's age to complete this topic UKY-Rotavirus Vaccines Aged Out No lo nger eligible based on patient's age to complete this topic Insurance [facility] Care Teams Link Fabric Machine Operator Relationship Specialty Start Date End Date Tangela Topete APRN [address] [place], [place] [id number] PCP - General 01/24/21
--- NOTE | 2024-12-07 07:45 | MR_ITS ---
FINAL REPORT TECHNIQUE: Multiplanar MRI without gadolinium enhancement of the right ankle CLINICAL HISTORY: LEFT FOOT AND ANKLE PAIN. PRIOR HX FOOT SURGERY IN 2022. PAIN ON DORSAL ASPECT OF FOOT. FOOT AND ANKLE SWELLING. LATERAL SIDED ANKLE PAIN COMPARISON: none FINDINGS: Articular cartilage: No focal osteochondral defect. Mild diffuse thinning. Marrow signal: No fracture or edema. Postoperative changes of the lateral malleolus. Joint fluid: Small Tendons: Fluid within the Achilles tendon best seen on axial STIR sequences compatible with partial tear. Thickening of the anterior tibialis tendon compatible with tendinosis. Remaining tendons are unremarkable. Ligaments: Major ligaments unremarkable Plantar fascia: No evidence of tear or fasciitis. IMPRESSION: Partial longitudinal tear Achilles tendon. Enlargement of the anterior tibialis tendon compatible with tendinosis without tear. No ligamentous or acute osseous abnormality identified. Reviewed, Interpreted and Dictated by Dyana Mcdermott MD Transcribed by Maile Matias Authenticated and [facility]
--- NOTE | 2024-12-07 07:45 | MR_ITS ---
FINAL REPORT CLINICAL HISTORY: LEFT FOOT AND ANKLE PAIN.PRIOR HX FOOT SURGERY IN 2022. PAIN ON DORSAL ASPECT OF FOOT. FOOT AND ANKLE SWELLING. LATERAL SIDED ANKLE PAIN COMPARISON: None FINDINGS: Multiplanar MR imaging of the right foot was performed without contrast. Extensive postoperative changes in the medial midfoot are noted. Hardware artifact obscures the cuneiform and navicular bones and also obscures the adjacent soft tissues. There is marrow edema in the proximal 2nd metatarsal shaft suspicious for stress reaction. Degenerative etiology would be another consideration. Remaining osseous structures are unremarkable. The anterior tibialis tendon shows enlargement with minimal increased signal compatible with tendinosis. Remaining tendons within the foot are unremarkable. The plantar fascia is intact. There is edema in the plantar subcutaneous tissues overlying the 1st metatarsal head which may represent chronic inflammation and/or contusion of the soft tissues in this region. IMPRESSION: Marrow edema proximal 2nd metatarsal favored to represent stress reaction although degenerative related edema would be another consideration. Edema in the plantar subcutaneous tissues overlying the 1st metatarsal head may reflect chronic inflammation and/or contusion of the soft tissues. Reviewed, Interpreted and Dictated by Dyana Mcdermott MD Transcribed by Maile Matias Authenticated and [facility]
== END 2024-12-07 23:59 | disposition home or self-care (01) ==
LOC: RAD 07:43
PROVIDERS: PCP Family Medicine; Visit Provider Podiatrist
DX: M79.89 Other specified soft tissue disorders (principal); S86.011A Strain of right Achilles tendon, initial encounter; R93.6 Abnormal findings on diagnostic imaging of limbs; M25.572 Pain in left ankle and joints of left foot; M79.672 Pain in left foot
CPT/HCPCS: 73718; 73721

== ENCOUNTER 2025-01-25 14:14 | Outpatient (CLI) | payer OTHER, SELFPAY ==
--- OUTSIDE RECORDS SUMMARY | 2025-01-25 14:25 | XMS_ITS | Clinical Summary ---
[facility] [address] [place] [address] Care Team Providers Care Senior Counsel Name Role Phone Tangela Topete APRN Primary Care Provider [phone] Social History Tobacco Use Types Packs/Day Years Used Date Smoking Tobacco: Never Assessed Abuse Screen Answer Date Recorded Unsafe at Home or Work/School Not on file Feels Threatened by Someone? Not on file Does Anyone Keep You from Co ntacting Others or Doint Things Outside the Home? Not on file 03/06/2023 Physical Sign of Abuse Present Not on file 1 Housing Stability Answer Date Recorded Current Living Arrangements Not on file 02/22 Potentially Unsafe Housing Conditions Not on allen e 03/06/2023 Family and Community Support Answer Krishan e Recorded Help with Day-to-Day Activities Not on file 03/06/2023 Lonely or Isolated Not on file 03/06/2023 Employment Answer Date Recorded Do you want help finding or keeping work or a jermaine b? Not on file 03/06/2023 Disabilities Answer Date Recorded Concentrating, Remembering, or Making Decisions Difficulty Not on file 03/06/2023 Doing Errands Independently Difficulty Not on fi le 03/06/2023 Education Answer Date Recorded Help with school or training? Not on file Preferred Language Not on file 03/06/2023 Comments Unknown Sex and Gender Information Value Date Recorded Sex Assigned at Not on file Legal Sex Female 10:14 AM EDT Gender Identity Not on file Sexual Orientation Not on file Plan of Treatment Health Maintenance Due Date Last Done Comments ANNUAL PHYSICAL 1965 Annual Gynecologic Pelvic and Breast Exam 1966 HEPATITIS C SCREENING 1966 TDAP/TD VACCINES (1 - Tdap) 1985 MAMMOGRAM 2006 COLOGUARD 2011 COLON CANCER SCREENING 5 YEAR SIGMOIDOSCOPY 2011 COLONOSCOPY 2011 [address]AL CANCER SCREENING 2011 CT COLONOGRAPHY 2011 FECAL OCCULT BLOOD TEST 2011 FIT Testing (1 year) 2011 Pneumococcal Vaccine 50+ (1 of 1 - PCV) 2016 ZOSTER VACCINE (1 of 2) 2016 COVID-19 Vaccine (1 - 2023- season) 2024 INFLUENZA VACCINE 02/22/[address] [place] [address] [employer] Care Teams Senior Counsel Relationship Specialty Start Date End Date Tangela Topete APRN [address] [place] [address] [place] [address] PCP - General Obstetrics and Gynecology 02/19/21
--- OUTSIDE RECORDS SUMMARY | 2025-01-25 14:25 | XMS_ITS | Clinical Summary ---
Author Organization Healthcare Address [address] [place] [address] Care Team Providers Care Glass Decorator Name Role Phone Tangela Topete APRN Primary Care Provider [phone] Allergies No known active allergies Medications methocarbamol [...] 2016 UKY-Zoster Vaccines (1 of 2) 2016 [id number] Vaccine (1 - 20 24-25 season) 2024 [...] patient's age to complete this topic Insurance [facility] Care Teams Glass Decorator Relationship Specialty Start Date End Date Tangela Topete APRN [address] [place], [place] [id number] PCP - General 01/24/21
[2025-01-25 15:11] LABS: Hematocrit 41.0 % (37.0-47.0); Hemoglobin 14.0 g/dL (12.2-16.2); Immature Granulocytes % 0.3 %; Mean Corpuscular HGB Conc 34.1 g/dL (31.8-35.4); Mean Corpuscular Hemoglobin 31.1 pg (27.0-31.2); Mean Corpuscular Volume 91.1 fl (81-99); Nucleated Red Blood Cells % 0 %; Platelet Count 214 K/mm3 (142-424); Red Blood Count 4.50 M/mm3 (4.20-5.40); Red Cell Distribution Width-SD 40.8 fL; White Blood Count 7.8 K/mm3 (4.8-10.8)
[2025-01-25 16:03] LABS: Alanine Aminotransferase 18 U/L (12-78); Albumin Level 4.5 g/dl (3.5-5.0); Albumin/Globulin Ratio 2.0 (1.1-1.8); Alkaline Phosphatase 56 U/L (38-126); Anion Gap 12.0 mEq/L (5-15); Aspartate Amino Transferase 27 U/L (14-36); Bilirubin,Total 0.6 mg/dl (0.2-1.3); Blood Urea Nitrogen 16 mg/dl (7-17); Calcium 9.1 mg/dl (8.4-10.2); Carbon Dioxide 26 mmol/L (22.0-30.0); Chloride 103 mmol/L (98-107); Creatinine,Serum 0.70 mg/dl (0.52-1.04); Estimated Glomerular Filt Rate 86 ml/min (>60); GFR (African American) 104 ML/MIN (>60); Globulin 2.3 g/dL (1.3-3.2); Glucose 93 mg/dl (74-100); Potassium 4.0 mmoL/L (3.5-5.1); Sodium 137 mmol/L (136-145); Total Protein,Serum 6.8 g/dl (6.3-8.2)
[2025-01-25 16:10] LABS: C-Reactive Protein 13.5 mg/L (0-4)
[2025-01-25 18:14] LABS: Hemoglobin A1C 5.3 % (4.0-6.0)
== END 2025-01-25 23:59 | disposition home or self-care (01) ==
PROVIDERS: PCP Family Medicine; Visit Provider Podiatrist
DX: L03.116 Cellulitis of left lower limb (principal); E11.9 Type 2 diabetes mellitus without complications; T84.84XA Pain due to internal orthopedic prosthetic devices, implants and grafts, initial encounter; I89.0 Lymphedema, not elsewhere classified; M79.89 Other specified soft tissue disorders
CPT/HCPCS: 36415; 80053; 83036; 85025; 85651; 86140; 87070; 87205

== ENCOUNTER 2025-02-10 09:13 | Outpatient (CLI) | payer OTHER, SELFPAY ==
--- OUTSIDE RECORDS SUMMARY | 2025-02-10 09:15 | XMS_ITS | Clinical Summary ---
Author Organization Healthcare Address [address] [place] [address] Care Team Providers Care Silica Mixer Operator Name Role Phone Tangela Topete APRN Primary Care Provider [phone] Allergies No known active allergies Medications methocarbamol [...] Date Last Done Comments [facility]Y-Depression Screening 1966 UKY-Infant/Child/Adol SDOH Screenings 1966 UKY- SDOH Screenings 1984 [...] 2016 UKY-Zoster Vaccines (1 of 2) 2016 [id number] Vaccine (1 - 20 24-25 season) 2025 UKY-Influenza Vaccine (#1) 2025 HPV Vaccines Aged [...] patient's age to complete this topic Insurance [facility] Care Teams Silica Mixer Operator Relationship Specialty Start Date End Date Tangela Topete APRN [address] [place], [place] [id number] PCP - General 01/24/21
--- OUTSIDE RECORDS SUMMARY | 2025-02-10 09:15 | XMS_ITS | Clinical Summary ---
[facility] [address] [place] [address] Care Team Providers Care Crm Technical Lead Name Role Phone Tangela Topete APRN Primary Care Provider [phone] Social History Tobacco Use Types Packs/Day Years [...] of 2) 2016 COVID-19 Vaccine (1 - season) 2025 INFLUENZA VACCINE 02/22/[address] [place] [address] [place] [address] [employer] Care Teams Crm Technical Lead Relationship Specialty Start Date End Date Tangela Topete APRN [address] [place] [address] [place] [address] PCP - General Obstetrics and Gynecology 02/19/21
--- NOTE | 2025-02-10 09:30 | MR_ITS ---
FINAL REPORT CLINICAL HISTORY: SWELLNG TO LATERAL MALLEOLUS, NKI ON ANTIBIOTICS FOR INFECTION IN THE FOOT AND ANKLE COMPARISON: None FINDINGS: Multiplanar MR imaging of the left foot was performed with and without contrast. Extensive postoperative changes in the medial midfoot with hardware artifact. There is no evidence of marrow edema or marrow replacement to indicate osteomyelitis. No evidence of fluid collection. There is abnormal enhancement along the lateral hindfoot. Mild enhancement along the medial midfoot is probably postoperative in nature. IMPRESSION: No evidence of osteomyelitis or abscess. Subcutaneous enhancement lateral hindfoot may be cellulitis or postoperative. Reviewed, Interpreted and Dictated by Dyana Mcdermott MD Transcribed by Maile Matias Authenticated and [facility]
--- NOTE | 2025-02-10 10:30 | MR_ITS ---
FINAL REPORT CLINICAL HISTORY: SWELLNG TO LATERAL MALLEOLUS, NKI ON ANTIBIOTICS FOR INFECTION IN THE FOOT AND ANKLE COMPARISON: None FINDINGS: Multiplanar and multisequence imaging of the left ankle was obtained with and without intravenous contrast. Marrow signal: Hardware artifact of the lateral malleolus. No significant changes of osteomyelitis or fracture. Articular cartilage: No focal defect. Joint: Physiologic. Tendons: Unremarkable. Edema with enhancement of the subcutaneous tissues of within the lateral malleolus and lateral hindfoot which can be seen with cellulitis. If ankle surgery was recent postoperative changes would be included in the etiology. No evidence of fluid collection to indicate abscess. IMPRESSION: No evidence of abscess or osteomyelitis. Significant subcutaneous enhancement along the lateral hindfoot and lateral malleolus may indicate cellulitis and postsurgical change if surgery was recent. Reviewed, Interpreted and Dictated by Dyana Mcdermott MD Transcribed by Maile Matias Authenticated and [facility]
[2025-02-10] MEDS: SODIUM CHLORIDE 0.9% 10ML SYR (RAD ONLY) 10 ML IV (11:12)
[2025-02-10] MEDS: IOPAMIDOL-370 (76%);100ML BOTTLE 18 ML IV (11:12)
== END 2025-02-10 23:59 | disposition home or self-care (01) ==
LOC: RAD 09:14
PROVIDERS: PCP Family Medicine; Visit Provider Podiatrist
DX: L02.612 Cutaneous abscess of left foot (principal); L03.116 Cellulitis of left lower limb; M84.675A Pathological fracture in other disease, left foot, initial encounter for fracture; S86.312A Strain of muscle(s) and tendon(s) of peroneal muscle group at lower leg level, left leg, initial encounter; M76.72 Peroneal tendinitis, left leg; M79.89 Other specified soft tissue disorders; L02.416 Cutaneous abscess of left lower limb; R93.6 Abnormal findings on diagnostic imaging of limbs
CPT/HCPCS: 73720; 73723; Q9967

== ENCOUNTER 2025-02-15 07:00 | Outpatient (RCR) | payer OTHER, SELFPAY | END 2025-02-15 23:59 | disposition home or self-care (01) | LOC: PT.CARL 07:00 | DX: M17.11 Unilateral primary osteoarthritis, right knee (principal) | CPT/HCPCS: 97110; 97112; 97161; 97530 ==

== ENCOUNTER 2025-03-01 07:00 | Outpatient (RCR) | payer OTHER, SELFPAY | END 2025-03-01 23:59 | disposition home or self-care (01) | LOC: PT.CARL 07:00 | DX: M17.11 Unilateral primary osteoarthritis, right knee (principal) | CPT/HCPCS: 97110; 97530 ==

== ENCOUNTER 2025-03-02 08:30 | Outpatient (CLI) | payer OTHER, SELFPAY ==
--- OUTSIDE RECORDS SUMMARY | 2025-03-03 02:49 | XMS_ITS | Clinical Summary ---
[facility] [address] [place] [address] Care Team Providers Care Research Staff Member Name Role Phone Tangela Topete APRN Primary Care Provider [phone] Social History Tobacco Use Types Packs/Day Years [...] 2016 ZOSTER VACCINE (1 of 2) 2016 INFLUENZA VACCINE 12/23/2024 Insurance [facility] [employer] Care Teams Research Staff Member Relationship Specialty Start Date End Date Tangela Topete APRN [facility] [place] [address] PCP - General Obstetrics and Gynecology 02/19/21
--- OUTSIDE RECORDS SUMMARY | 2025-03-03 02:49 | XMS_ITS | Clinical Summary ---
Author Organization Healthcare Address [address] [place] [address] Care Team Providers Care Bed Worker Name Role Phone Tagnela Topete APRN Primary Care Provider [phone] Allergies No known active allergies Medications methocarbamol [...] 2016 [facility]Y-Zoster Vaccines (1 of 2) 2016 [id number] Vaccine (1 - 20 24-25 season) 2025 [...] to complete this topic Insurance [facility] Care Teams Bed Worker Relationship Specialty Start Date End Date Tangela Topete APRN [address] [place], [place] [id number] PCP - General 01/24/21
== END 2025-03-02 23:59 ==
LOC: LAB.DROPOF 03-03 02:48
PROVIDERS: PCP Podiatrist; Visit Provider Podiatrist
DX: T81.41XA Infection following a procedure, superficial incisional surgical site, initial encounter (principal); L02.416 Cutaneous abscess of left lower limb
CPT/HCPCS: 87070; 87205

== ENCOUNTER 2025-03-20 11:35 | Outpatient (CLI) | payer OTHER, SELFPAY ==
--- OUTSIDE RECORDS SUMMARY | 2025-03-20 11:40 | XMS_ITS | Data Portability ---
Author Organization [facility] Address [address] [place] [address] Assessment No assessment recorded. Plan of Treatment Reminders Order Date Submit Date Provider Last Modified By Organization Details Last Modified Time Details Appointments None recorded. Lab progestero ne, serum 2022 023 Y[facility]I [facility], [address], [place], [address], 3 10:51:57 estradiol, serum 2022 023 [facility], [address], [address], [place], [address], 3 10:51:53 lh + FSH, serum 2022 023 YUKI [facility], [address], [place], [address], 3 10:51:52 dhea-sulfa te, serum 2022 023 YUKI [facility], [address], [place], [address], 3 10:51:54 testostero ne, total, serum 2022 023 [email or web address] [facility], [address], [place], [address], 3 09:51:05 lipid panel, serum 05/10/ 2023 05/10/2 023 YUKI [facility], [address], [place], [address], 3 10:51:50 C reactive protein, QN, serum or plasma 2022 023 [facility], [address], [place], [address], 3 10:51:57 ESR (erythrocy te sedimentat ion rate), blood 2022 023 Y[facility], [address], [place], [address], 3 10:51:56 YULIYA (antinucle ar antibodies ) screen, serum 2022 023 Y[facility]I [facility], [address], [place], [address], 3 10:51:56 rf (rheumatoi d factor) iga, serum 2022 023 [facility], [address], [place], [address], 3 10:51:54 ccp (cyclic citrullina jeison peptide) iga+igg, serum 2022 023 [facility], [address], [place], [address], 3 10:51:55 uric acid, serum or plasma 2022 023 [facility], [address], [place], [address], 3 10:51:55 vitamin B12 + folate, serum or blood 2022 023 [facility], [address], [place], [address], 3 10:51:51 iron + TIBC + ferritin, serum 2022 023 [facility], [address], [place], [address], 3 10:51:49 CBC w/ auto diff 2022 023 [facility], [address], [place], [address], 3 10:51:58 HbA1c (hemoglobi n A1c), blood 2022 023 [facility], [address], [place], [address], 3 10:51:52 CMP, serum or plasma 2022 023 [facility], [address], [place], [address], 3 10:51:49 thyroid panel, serum 2022 023 [facility], [address], [place], [address], 3 10:51:50 vitamin D, 25-hydroxy , total, serum 2022 023 [facility], [address], [place], [address], 3 10:51:53 culture, urine 2022 023 [facility], [address], [place], [address], 3 16:12:19 urinalysis , dipstick 2022 023 [facility] Not available 3 15:57:[address] referral 2022 023 [email or web address] Gunner Degroot MD, [address], [place], [address], 08:03:49 Procedures None recorded. Surgeries None recorded. Imaging None recorded. Medication Orders Macrobid 100 mg capsule 2022 023 sallie [facility], [facility] [place], [address], 08:03:19 fluconazol e 150 mg tablet 2022 023 [facility], [address], [place], [address], 08:16:58 Wellbutrin XL 150 mg 24 hr tablet, extended release 2022 023 [facility], [facility] [place], [address], 16:39:36 Patient TargetsNo targets recorded. Patient InstructionsNo instructions recorded. Reason for Referral Heel Nail Rasper Referral for Dy spnea on exertion Referring Physician: Mike Duffy, Family Medicine, Encounter Date: 10/24/2022 Results Created Date Observation Date Name Description Value Unit Range Abnormal Flag Note LastModifiedBy Organization Detail LastModifiedTime 08/19/1908/22/2022 URINE CULTU RE, ROUTI NE urine culture, routine FINAL REPORT abnormal Not Available [facility] ([facility]) [address] [facility], [place], [address], 08/22/2022 16:12:19 08/19/1908/22/2022 URINE CULTU RE, ROUTI [...] Prote us mirab ilis. Not Available [facility] ([facility]) [address] [facility], [place], [address], 08/22/2022 16:12:19 08/19/19 23 08/22/2022 URINE CULTU [...] thopr im/Burch lfa S Not Available [facility] ([facility]) [address] [facility], [place], [address], 08/22/2022 16:12:19 08/19/19 23 08/18/2022 urina lysis , dipst ick Leukocytes (reference range) modera te Not Available [address], [address], 08/18/2022 15:53:12 08/19/19 23 08/18/2022 urina lysis , dipst ick Nitrite (reference range:) negati ve Not Available [address], [address], 08/18/2022 15:53:12 08/19/19 23 08/18/2022 urina lysis , dipst ick Urobilinogen (reference range) 0.2 Not Available [address], [address], 08/18/2022 15:53:12 08/19/19 23 08/18/2022 urina lysis , dipst ick Protein (reference range) negati ve Not Available [address], [address], 08/18/2022 15:53:12 08/19/19 23 08/18/2022 urina lysis , dipst ick pH (reference range 5-8.5) 6.5 Not Available [address], [address], 08/18/2022 15:53:12 08/19/19 23 08/18/2022 urina lysis , dipst ick Blood (reference range:) non-He molyze d: Trace Not Available [address], [address], 08/18/2022 15:53:12 08/19/19 23 08/18/2022 urina lysis , dipst ick Specific Porter (reference range) 1.025 Not Available [address], [address], 08/18/2022 15:53:12 08/19/19 23 08/18/2022 urina lysis , dipst ick Ketone (reference range) negati ve Not Available [address], [address], 08/18/2022 15:53:12 08/19/19 23 08/18/2022 urina lysis , dipst ick Bilirubin (reference range) negati ve Not Available [address], [address], 08/18/2022 15:53:12 08/19/19 23 08/18/2022 urina lysis , dipst ick Glucose (reference range) negati ve Not Available [address], [address], 08/18/2022 15:53:12 08/19/19 23 08/18/2022 urina lysis , dipst ick Color (reference range: yellow-brown ) Yellow Not Available [address], [address], 08/18/2022 15:53:12 10/02/19 23 10/02/2022 FE+TI BC+FE R iron bind.cap.(TI BC) 256 ug/dL 250-45 0 Not Available [facility] ([facility]) [address] [place], [address], 10/10/2022 03:07:56 10/02/19 23 10/02/2022 FE+TI BC+FE R UIBC 152 ug/dL 131-42 5 Not Available [facility] ([facility]) [address] [place], [address], 10/10/2022 03:07:56 10/02/19 23 10/02/2022 FE+TI BC+FE R iron 104 ug/dL 27-159 Not Available [facility] ([facility]) [address] [place], [address], 10/10/2022 03:07:56 10/02/19 23 10/02/2022 FE+TI BC+FE R iron saturation 41 % 15-55 Not Available [facility] ([facility]) [address] [place], [address], 10/10/2022 03:07:56 10/02/19 23 10/02/2022 FE+TI BC+FE R ferritin 263 NG/mL 15-150 above high normal Not Available [facility] ([facility]) [address] [facility], [place], [address], 10/10/2022 03:07:56 10/02/19 23 10/02/2022 CBC WITH DIFFE RENTI AL/PL ATELE T WBC 4.6 x10e3 /uL 3.4-10 .8 Not Available [facility] ([facility]) [address] [facility], [place], [address], 10/10/2022 03:07:57 10/02/19 23 10/02/2022 CBC WITH DIFFE RENTI AL/PL ATELE T RBC 4.71 x10e6 /uL 3.77-5 .28 Not Available [facility] ([facility]) [address] [facility], [place], [address], 10/10/2022 03:07:57 10/02/19 23 10/02/2022 CBC WITH DIFFE RENTI AL/PL ATELE T hemoglobin 14.4 g/dL 11.1-1 5.9 Not Available [facility] ([facility]) [address] [facility], [place], [address], 10/10/2022 03:07:57 10/02/19 23 10/02/2022 CBC WITH DIFFE RENTI AL/PL ATELE T hematocrit 42.7 % 34.0-4 6.6 Not Available [facility] ([facility]) [address] [facility], [place], [address], 10/10/2022 03:07:57 10/02/1910/02/2022 CBC WITH DIFFE RENTI AL/PL ATELE T MCV 91 fL 79-97 Not Available [facility] ([facility]) [address] [facility], [place], [address], 10/10/2022 03:07:57 10/02/19 23 10/02/2022 CBC WITH DIFFE RENTI AL/PL ATELE T MCH 30.6 pg 26.6-3 3.0 Not Available [facility] ([facility]) [address] [facility], [place], [address], 10/10/2022 03:07:57 10/02/19 23 10/02/2022 CBC WITH DIFFE RENTI AL/PL ATELE T MCHC 33.7 g/dL 31.5-3 5.7 Not Available [facility] ([facility]) [address] [facility], [place], [address], 10/10/2022 03:07:57 10/02/19 23 10/02/2022 CBC WITH DIFFE RENTI AL/PL ATELE T RDW 12.4 % 11.7-1 5.4 Not Available [facility] ([facility]) [address] [facility], [place], [address], 10/10/2022 03:07:57 10/02/19 23 10/02/2022 CBC WITH DIFFE RENTI AL/PL ATELE T platelets 211 x10e3 /uL 150-45 0 Not Available [facility] ([facility]) [address] [facility], [place], [address], 10/10/2022 03:07:57 10/02/1910/02/2022 CBC WITH DIFFE RENTI AL/PL ATELE T neutrophils 60 % not estab. Not Available [facility] ([facility]) [address] [facility], [place], [address], 10/10/2022 03:07:57 10/02/19 23 10/02/2022 CBC WITH DIFFE RENTI AL/PL ATELE T lymphs 26 % not estab. Not Available [facility] ([facility]) [address] [facility], [place], [address], 10/10/2022 03:07:57 10/02/19 23 10/02/2022 CBC WITH DIFFE RENTI AL/PL ATELE T monocytes 7 % not estab. Not Available [facility] ([facility]) [address] [facility], [place], [address], 10/10/2022 03:07:57 10/02/19 23 10/02/2022 CBC WITH DIFFE RENTI AL/PL ATELE T eos 6 % not estab. Not Available [facility] ([facility]) [address] [place], [address], 10/10/2022 03:07:57 10/02/19 23 10/02/2022 CBC WITH DIFFE RENTI AL/PL ATELE T basos 1 % not estab. Not Available [facility] ([facility]) [address] [place], [address], 10/10/2022 03:07:57 10/02/1910/02/2022 CBC WITH DIFFE RENTI AL/PL ATELE T immature cells REFUELING RAMP ATTENDANT Not Available [facility] ([facility]) [address] [place], [address], 10/10/2022 03:07:57 10/02/19 23 10/02/2022 CBC WITH DIFFE RENTI AL/PL ATELE T neutrophils (absolute) 2.8 x10e3 /uL 1.4-7. 0 Not Available [facility] ([facility]) [address] [place], [address], 10/10/2022 03:07:57 10/02/19 23 10/02/2022 CBC WITH DIFFE RENTI AL/PL ATELE T lymphs (absolute) 1.2 x10e3 /uL 0.7-3. 1 Not Available [facility] ([facility]) [address] [place], [address], 10/10/2022 03:07:57 10/02/19 23 10/02/2022 CBC WITH DIFFE RENTI AL/PL ATELE T monocytes(ab solute) 0.3 x10e3 /uL 0.1-0. 9 Not Available [facility] ([facility]) [address] [place], [address], 10/10/2022 03:07:57 10/02/19 23 10/02/2022 CBC WITH DIFFE RENTI AL/PL ATELE T eos (absolute) 0.3 x10e3 /uL 0.0-0. 4 Not Available [facility] ([facility]) [address] [facility], [place], [address], 10/10/2022 03:07:57 10/02/19 23 10/02/2022 CBC WITH DIFFE RENTI AL/PL ATELE T baso (absolute) 0.0 x10e3 /uL 0.0-0. 2 Not Available [facility] ([facility]) [address] [facility], [place], [address], 10/10/2022 03:07:57 10/02/19 23 10/02/2022 CBC WITH DIFFE RENTI AL/PL ATELE T immature granulocytes 0 % not estab. Not Available [facility] ([facility]) [address] [facility], [place], [address], 10/10/2022 03:07:57 10/02/1910/02/2022 CBC WITH DIFFE RENTI AL/PL ATELE T immature grans (abs) 0.0 x10e3 /uL 0.0-0. 1 Not Available [facility] ([facility]) [address] [facility], [place], [address], 10/10/2022 03:07:57 10/02/19 23 10/02/2022 CBC WITH DIFFE RENTI AL/PL ATELE T NRBC REFUELING RAMP ATTENDANT Not Available [facility] ([facility]) [address] [facility], [place], [address], 10/10/2022 03:07:57 10/02/1910/02/2022 CBC WITH DIFFE RENTI AL/PL ATELE T hematology comments: REFUELING RAMP ATTENDANT Not Available [facility] ([facility]) [address] [facility], [place], [address], 10/10/2022 03:07:57 10/02/19 23 10/02/2022 COMP. METAB OLIC PANEL (14) glucose 91 mg/dL 70-99 Not Available [facility] ([facility]) [address] [place], [address], 10/10/2022 03:07:58 10/02/19 23 10/02/2022 COMP. METAB OLIC PANEL (14) BUN 13 mg/dL 6-24 Not Available [facility] ([facility]) [address] [place], [address], 10/10/2022 03:07:58 10/02/19 23 10/02/2022 COMP. METAB OLIC PANEL (14) creatinine 0.74 mg/dL 0.57-1 .00 Not Available [facility] ([facility]) [address] [place], [address], 10/10/2022 03:07:58 10/02/19 23 10/02/2022 COMP. METAB OLIC PANEL (14) eGFR 95 mL/mi n/1.7 3 >59 Not Available [facility] ([facility]) [address] [place], [address], 10/10/2022 03:07:58 10/02/19 23 10/02/2022 COMP. METAB OLIC PANEL (14) BUN/creatini ne ratio 18 9-23 Not Available [facility] ([facility]) [address] [place], [address], 10/10/2022 03:07:58 10/02/19 23 10/02/2022 COMP. METAB OLIC PANEL (14) sodium 139 mmol/ L 134-14 4 Not Available [facility] ([facility]) [address] [place], [address], 10/10/2022 03:07:58 10/02/19 23 10/02/2022 COMP. METAB OLIC PANEL (14) potassium 4.9 mmol/ L 3.5-5. 2 Not Available [facility] ([facility]) [address] [place], [address], 10/10/2022 03:07:58 10/02/19 23 10/02/2022 COMP. METAB OLIC PANEL (14) chloride 102 mmol/ L 96-106 Not Available [facility] ([facility]) [address] [place], [address], 10/10/2022 03:07:58 10/02/19 23 10/02/2022 COMP. METAB OLIC PANEL (14) carbon dioxide, total 24 mmol/ L 20-29 Not Available [facility] ([facility]) [address] [place], [address], 10/10/2022 03:07:58 10/02/19 23 10/02/2022 COMP. METAB OLIC PANEL (14) calcium 9.6 mg/dL 8.7-10 .2 Not Available [facility] ([facility]) [address] [place], [address], 10/10/2022 03:07:58 10/02/19 23 10/02/2022 COMP. METAB OLIC PANEL (14) protein, total 6.9 g/dL 6.0-8. 5 Not Available [facility] ([facility] [address] [facility] [place], [address], 10/10/2022 03:07:58 10/02/19 23 10/02/2022 COMP. METAB OLIC PANEL (14) albumin 4.8 g/dL 3.8-4. 9 Not Available [facility] ([facility] [address] [facility] [place], [address], 10/10/2022 03:07:58 10/02/19 23 10/02/2022 COMP. METAB OLIC PANEL (14) globulin, total 2.1 g/dL 1.5-4. 5 Not Available [facility] ([facility]) [address] [facility] [place], [address], 10/10/2022 03:07:58 10/02/19 23 10/02/2022 COMP. METAB OLIC PANEL (14) A/G ratio 2.3 1.2-2. 2 above high normal Not Available [facility] ([facility]) [address] [facility], [place], [address], 10/10/2022 03:07:58 10/02/19 23 10/02/2022 COMP. METAB OLIC PANEL (14) bilirubin, total 0.5 mg/dL 0.0-1. 2 Not Available [facility] ([facility]) [address] [facility] [place], [address], 10/10/2022 03:07:58 10/02/19 23 10/02/2022 COMP. METAB OLIC PANEL (14) alkaline phosphatase 68 IU/L 44-121 Not Available [facility] ([facility]) [address] [facility], [place], [address], 10/10/2022 03:07:58 10/02/19 23 10/02/2022 COMP. METAB OLIC PANEL (14) AST (SGOT) 22 IU/L 0-40 Not Available [facility] ([facility]) [address] [facility] [place], [address], 10/10/2022 03:07:58 10/02/19 23 10/02/2022 COMP. METAB OLIC PANEL (14) ALT (SGPT) 22 IU/L 0-32 Not Available [facility] ([facility]) [address] [facility] [place], [address], 10/10/2022 03:07:58 10/02/19 23 10/02/2022 LIPID PANEL WITH LDL/H DL RATIO cholesterol, total 226 mg/dL 100-19 9 above high normal Not Available [facility] ([facility]) [address] [facility] [place], [address], 10/10/2022 03:07:58 10/02/19 23 10/02/2022 LIPID PANEL WITH LDL/H DL RATIO triglyceride s 62 mg/dL 0-149 Not Available [facility] ([facility]) [address] [facility], [place], [address], 10/10/2022 03:07:58 10/02/19 23 10/02/2022 LIPID PANEL WITH LDL/H DL RATIO HDL cholesterol 68 mg/dL >39 Not Available [facility] ([facility]) [address] [place], [address], 10/10/2022 03:07:58 10/02/19 23 10/02/2022 LIPID PANEL WITH LDL/H DL RATIO VLDL cholesterol william 11 mg/dL 5-40 Not Available [facility] ([facility]) [address] [place], [address], 10/10/2022 03:07:58 10/02/19 23 10/02/2022 LIPID PANEL WITH LDL/H DL RATIO LDL chol calc ([facility]) 147 mg/dL 0-99 above high normal Not Available [facility] ([facility]) [address] [place], [address], 10/10/2022 03:07:58 10/02/19 23 10/02/2022 LIPID PANEL WITH LDL/H DL RATIO comment: REFUELING RAMP ATTENDANT Not Available [facility] ([facility]) [address] [place], [address], 10/10/2022 03:07:58 10/02/19 23 10/02/2022 LIPID PANEL WITH LDL/H DL RATIO LDL/HDL ratio 2.2 ratio 0.0-3. 2 LDL/H DL Ratio Men Women 1/2 Avg.R isk 1.0 1.5 Avg.R isk 3.6 3.2 2X Avg.R isk 6.2 5.0 3X Avg.R isk 8.0 6.1 Not Available [facility] ([facility]) [address] [place], [address], 10/10/2022 03:07:58 10/02/19 23 10/02/2022 THYRO ID PANEL WITH TSH TSH 1.990 uIU/m L 0.450- 4.500 Not Available [facility] ([facility]) [address] [place], [address], 10/10/2022 03:07:58 10/02/19 23 10/02/2022 THYRO ID PANEL WITH TSH thyroxine (T4) 8.5 ug/dL 4.5-12 .0 Not Available [facility] ([facility]) [address] [place], [address], 10/10/2022 03:07:58 10/02/19 23 10/02/2022 THYRO ID PANEL WITH TSH T3 uptake 26 % 24-39 Not Available [facility] ([facility]) [address] [place], [address], 10/10/2022 03:07:58 10/02/1910/02/2022 THYRO ID PANEL WITH TSH free thyroxine index 2.2 1.2-4. 9 Not Available [facility] ([facility]) [address] [place], [address], 10/10/2022 03:07:58 10/02/1910/10/2022 TESTO STERO NE, WOMEN [...] - 40 Not Available [facility] [address] [place] [address], [place], [address], 10/10/2022 03:07:59 10/02/19 10/02/2022 VITAM IN B12 AND FOLAT E vitamin B12 655 pg/mL 232-12 45 Not Available [facility] ([facility]) [address] [place], [address], 10/10/2022 03:07:59 10/02/19 23 10/02/2022 VITAM IN B12 AND FOLAT E folate (folic acid), serum 17.7 NG/mL >3.0 A serum folat e january ntrat ion of less than 3.1 ng/mL is consi dered to repre sent clini william defic iency . Not Available [facility] ([facility]) [address] [place], [address], 10/10/2022 03:07:59 10/02/1910/02/2022 FSH AND LH LH 20.1 mIU/m L Adult Femal e: Folli cular phase 2.4 - 12.6 Ovula tion phase 14.0 - 95.6 Lutea l phase 1.0 - 11.4 Postm enopa usal 7.7 - 58.5 Not Available [facility] ([facility]) [address] [facility], [place], [address], 10/10/2022 03:07:59 10/02/1910/02/2022 FSH AND LH FSH 67.7 mIU/m L Adult Femal e: Folli cular phase 3.5 - 12.5 Ovula tion phase 4.7 - 21.5 Lutea l phase 1.7 - 7.7 Postm enopa usal 25.8 - 134.8 Not Available [facility] ([facility]) [address] [place], [address], 10/10/2022 03:07:59 10/02/1910/02/2022 HEMOG LOBIN A1C hemoglobin A1C 5.6 % 4.8-5. 6 Predi abete s: 5.7 - 6.4 Diabe jennyfer: >6.4 Glyce roxi contr ol for adult s with diabe jennyfer: <7.0 Not Available [facility] ([facility]) [address] [facility], [place], [address], 10/10/2022 03:08:00 10/02/19 23 10/02/2022 VITAM IN [...] um and D. Marisela coughlin [place]: [facility] . 2. Ashlee lira MF, Kassie miller [place], Phil off-F errar i GLASS, et al. Evalu ation , treat ment, and preve ntion of vitam in D defic iency : an Endoc rine Socie ty clini william pract ice guide line. JCEM. 2010; 96(7) :1911 -30. Not Available [facility] ([facility]) [address] [facility], [place], [address], 10/10/2022 03:08:00 10/02/1910/02/2022 ESTRA DIOL estradiol 7.1 pg/mL Adult Femal e: Folli cular phase 12.5 - 166.0 Ovula tion phase 85.8 - 498.0 Lutea l phase 43.8 - 211.0 Postm enopa usal <6.0 - 54.7 Pregn dorie 1st trime ster 215.0 - >4300 .0 Sang ECLIA metho dolog y Not Available [facility] ([facility]) [address] [facility], [place], [address], 10/10/2022 03:08:01 10/02/1910/02/2022 DHEA- SULFA TE DHEA-sulfate 27.1 ug/dL 29.4-2 20.5 below low normal Not Available [facility] ([facility]) [address] [facility], [place], [address], 10/10/2022 03:08:01 10/02/19 23 10/08/2022 RF, IGA BY EIA (RDL) rf, IgA by EIA (rdl) <7 U <7 Not Available [facility] [address] [place], [address], 10/10/2022 03:08:01 10/02/1910/02/2022 ANTI- CCP AB, IGG/I GA anti-ccp Ab, IgG/IgA 4 units 0-19 Negat rk <20 Weak posit rk 20 - 39 Moder ate posit rk 40 - 59 Stron g posit rk >59 Not Available [facility] ([facility]) [address] [facility], [place], [address], 10/10/2022 03:08:02 10/02/1910/02/2022 URIC ACID uric acid 4.5 mg/dL 3.0-7. 2 Thera rahi c pierre t for gout patie nts: <6.0 Not Available [facility] ([facility]) [address] [place], [address], 10/10/2022 03:08:02 10/02/1910/02/2022 ANTIN UCLEA R AB MULTI PLEX RFX 9 YULIYA direct Negati ve negati ve Not Available [facility] ([facility]) [address] [place], [address], 10/10/2022 03:08:02 10/02/1910/02/2022 SEDIM ENTAT ION RATE- WESTE RGREN sedimentatio n rate-westerg shaneka 14 mm/HR 0-40 Not Available [facility] ([facility]) [address] [place], [address], 10/10/2022 03:08:03 10/02/1910/02/2022 PROGE STERO NE progesterone 0.1 NG/mL Folli cular phase 0.1 - 0.9 Lutea l phase 1.8 - 23.9 Ovula tion phase 0.1 - 12.0 Pregn ant First trime ster 11.0 - 44.3 Secon d trime ster 25.4 - 83.3 Third trime ster 58.7 - 214.0 Postm enopa usal 0.0 - 0.1 Not Available [facility] ([facility]) [address] [facility], [place], [address], 10/10/2022 03:08:03 10/02/1910/02/2022 C-MIGUEL CTIVE PROTE IN, QUANT C-reactive protein, quant 4 mg/L 0-10 Not Available [facility] ([facility]) [address] [facility], [place], [address], 10/10/2022 03:08:03 Result Notes None recorded. Problems Name Problem SNOMED Code Status Onset Date Resolution Date Notes Provider Name and Address Organization Details Recorded Time Essential hypertensi on 38851414 Active 2022 MIKE DUFFY NP [address] [place], [address], [place] - [facility] [place] & [place] 3 08:27:40 Paroxysmal atrial fibrillati on 117737561 Active 2022 attributes to allergic reaction from [facility]; seen in ER once 2014 MIKE DUFFY NP [address] [place], [address], [place] [facility] [place] & [place] 3 08:27:19 Dyspnea on exertion 79091995 Active 2022 MIKE DUFFY NP [address] [place], [address], [place] - [facility] [place] & [place] 3 09:45:52 Mixed anxiety and depressive disorder 367989337 Active 2022 MIKE DUFFY NP [address] [place] [address], [place], [address] [facility] LINH RODRIGUE [facility] & [place] 09:45:55 Problem Notes None recorded. Procedures Surgical History Date Name Laterality Status Provider Name and Address Organization Details Recorded Time extraction of wisdom tooth completed Michelle HUSAIN [facility] [place] 08/18/2022 15:09:03 Partial Hysterectomy completed Michelle HUSAIN [facility] [place] 08/18/2022 15:09:26 Tubal Ligation completed Michelle HUSAIN [facility] [place] 08/18/2022 15:09:34 Carpal Tunnel Surgery completed Michelle HUSAIN [facility] [place] 08/18/2022 15:09:46 Imaging Results None recorded. Procedure Notes None recorded. Medical Equipment None Reported. Allergies Allergen ID Allergen Name Allergen Category Reaction Reaction Severity Criticality Documentation Date Start Date Code Code System Note Provider Name and Address Organization Details Recorded Time 89998 tramadol medicatio n Not available Not available Not available 08/18/2022 25747 RxNorm Michelle deng[facility] [place] 15:06:31 Medications Name Sig Start Date Stop [...] Updated DateTime 3 168.91 cm 32 kg/m2 34899.0 7 g 97.3 [degF] 99 % 99 % 67 /min 124/78 mm[Hg] Michelle MELTON [facility] & [place] 3 15:05:53 Date Recorded Body height Body mass index (BMI) Body weight Body temperature Oxygen saturation Oxygen saturation in Arterial blood by Pulse oximetry Heart rate Systolic And Diastolic Provider Name and Address Organization Details Last Updated DateTime 3 168.91 cm 31.2 kg/m2 90885.1 g 97 [degF] 98 % 98 % 67 /min 145/78 mm[Hg] Michelle MELTON [facility] & [place] 3 08:03:04 Date Recorded Body height Body mass index (BMI) Body weight Body temperature Oxygen saturation Oxygen saturation in Arterial blood by Pulse oximetry Heart rate Respiratory rate Systolic And Diastolic Provider Name and Address Organization Details Last Updated DateTime 3 168.91 cm 30.9 kg/m2 97737.0 8 g 97.3 [degF] 100 % 100 % 77 /min 16 /min 122/85 mm[Hg] Judith MELTON [facility] & [place] 3 09:16:16 Social History Question Answer Notes LastModified by Organizat ion Details LastModified Time Tobacco Smoking Status Former Smoker Michelle Carbone null, [place] - [facility] - [place] & [place] 08/18/2022 15:08:38 What Is Your Level Of [...] by Organization Details LastModified Time Mother Malignant neoplasm of breast [email or web address] Not available 2022 15:07:28 [...] Diagnosis SNOMED-CT Code Diagnosis ICD10 Code Diagnosis IMO Codes Diagnosis Note [id number] MIKE DUFFY NP [id number] [address] 08/18/2022 14:19:50 08/18/2022 16:51:14 Patient new to provider [id number] 82226 Z76.89 reviewed hx per patientlab s from May reviewed which was CBC and CMP and left foot xray Essential hypertension 42405548 I10 decreased from 10 mg to current 5 mgwishes to try to come of off; would like to try pink grapefruit juice to help with lowering will keep eye on and make sure meeting goal of <130/90 Dysuria 12603151 R30.0 awaiting culturetx for UTIdiscuss ed medication s as prescribed f/u if symptoms persist or worsen 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 History of hysterectomy 036523557 Z90.711 Dyspareunia 56657542 N94 .10 awaiting lab workdiscus sed lubricatio n; and reason for loss of estrogen after hysterecto my Essential hypertension 01102699 I10 educated on goal of less than 130/90home readings controlled advised low sodium diet, healthy lifestyle including exercise as ablecontin ue current medication regimenER if any symptoms such as chest pain, shortness of breath Mixed hyperlipidemia 267 629422 E78.2 tried cholestero l medication in past- unknown which one- unable to tolerate joint painPatien t advised to exercise, eat a prudent diet and lose weight as appropriat e. Pain of mu ltiple joints 22496515 M25.50 joint changes of hand and feet bilateralo n ibuprofen since [id number] MIKE DUFFY NP [facility] [address] [place], [place] [address] 10/24/2022 09:08:30 10/24/2022 09:43:31 Dyspnea on exertion 73293700 R06.09 ER if any urgent signs or symptoms arisecardi ology referral placed; needs cardiac workup Essential hypertension 76651828 I10 educated on goal of less than 130/90avoi d sudafed as can increaseho me blood pressure log reviewed which shows systolic 120 to 160discuss ed increasing back to lisinopril 10mgadvise d low sodium diet, healthy lifestyle including exercise as ablecontin ue current medication regimenER if any symptoms such as chest pain, shortness of breath Mixed anxi ety and depressive disorder 488885746 F41.8 wean wellbutrin ; discussed and verbalizes [...] *SELF PAY* Joanna Tran 10/27/2022 [facility] ([facility]) Omayra Tran [id number] Omayra Tran Notes Date Note Type Note Provider Name and Address Organization Details Recorded Time 08/18/2022 text/html ROS as noted in the HPI 57 yr old female who presents as [...] UTD on screenings MIKE DUFFY NP [address] [place], [address], [facility] - [facility] - [place] & [place] 08/18/2022 16:45:55 10/01/2022 text/html ROS as noted in the HPI Patient presents for annual visit.Vision screening: needs eye doctorDental screening: has one scheduledAny falls, fractures surgeries: deniesSpecialist: metallurgical or materials technician, winter operation of left footColonoscopy: denies colonoscopy [...] since the . MIKE DUFFY NP [address] [place], [address], [facility] - [place] & [place] 10/01/2022 10:15:04 10/24/2022 text/html ROS as noted in the HPI 57 yr old female who presents for [...] systolic 120 to 160. MIKE DUFFY NP [address] [place] [address], [address], [place] - [facility] [place] 10/26/2022 18:13:39 OBGyn Episode No OBEpisode recorded.
--- OUTSIDE RECORDS SUMMARY | 2025-03-20 11:40 | XMS_ITS | Clinical Summary ---
[facility] Address [address] [place] [address] Care Team Providers Care Funeral Home General Manager Name Role Phone Tangela Topete APRN Primary Care Provider [phone] Social History Tobacco Use Types Packs/Day Years [...] of 2) 2016 INFLUENZA VACCINE 12/23/2024 Insurance [facility] [employer] Care Teams Funeral Home General Manager Relationship Specialty Start Date End Date Tangela Topete APRN [facility] [place] [address] PCP - General Obstetrics and Gynecology 02/19/21
--- OUTSIDE RECORDS SUMMARY | 2025-03-20 11:40 | XMS_ITS | Clinical Summary ---
Author Organization Healthcare Address [address] [place] [address] Care Team Providers Care Elevator Runner Name Role Phone Tangela Topete APRN Primary Care Provider [phone] Allergies No known active allergies Medications methocarbamol [...] 2016 UKY-Zoster Vaccines (1 of 2) 2016 NCY-MLBIL-15 Vaccine (1 - 20 24-25 season) 2025 [...] patient's age to complete this topic Insurance [facility] Care Teams Elevator Runner Relationship Specialty Start Date End Date Tangela Topete APRN [address] [place], [place] [id number] PCP - General 01/24/21
[2025-03-20 12:12] LABS: Hematocrit 39.2 % (37.0-47.0); Hemoglobin 13.4 g/dL (12.2-16.2); Immature Granulocytes % 0.4 %; Mean Corpuscular HGB Conc 34.2 g/dL (31.8-35.4); Mean Corpuscular Hemoglobin 31.6 pg (27.0-31.2); Mean Corpuscular Volume 92.5 fl (81-99); Nucleated Red Blood Cells % 0 %; Platelet Count 203 K/mm3 (142-424); Red Blood Count 4.24 M/mm3 (4.20-5.40); Red Cell Distribution Width-SD 41.1 fL; White Blood Count 4.9 K/mm3 (4.8-10.8)
[2025-03-20 12:47] LABS: Albumin Level 3.4 g/dl (3.5-5.0); Chloride 103 mmol/L (98-107); Potassium 4.2 mmoL/L (3.5-5.1); Sodium 135 mmol/L (136-145)
[2025-03-20 12:49] LABS: Blood Urea Nitrogen 9 mg/dl (7-17); Creatinine,Serum 0.60 mg/dl (0.52-1.04); Estimated Glomerular Filt Rate 103 ml/min (>60); GFR (African American) 124 ML/MIN (>60)
[2025-03-20 12:50] LABS: Alanine Aminotransferase 20 U/L (12-78); Albumin/Globulin Ratio 1.1 (1.1-1.8); Alkaline Phosphatase 58 U/L (38-126); Anion Gap 9.2 mEq/L (5-15); Aspartate Amino Transferase 33 U/L (14-36); Bilirubin,Total 0.9 mg/dl (0.2-1.3); Calcium 9.1 mg/dl (8.4-10.2); Carbon Dioxide 27 mmol/L (22.0-30.0); Globulin 3.2 g/dL (1.3-3.2); Glucose 89 mg/dl (74-100); Total Protein,Serum 6.6 g/dl (6.3-8.2)
[2025-03-20 16:15] LABS: C-Reactive Protein 11.2 mg/L (0-4)
== END 2025-03-20 23:59 | disposition home or self-care (01) ==
LOC: LAB 11:36
PROVIDERS: PCP Family Medicine; Visit Provider Podiatrist
DX: M79.89 Other specified soft tissue disorders (principal); L02.612 Cutaneous abscess of left foot; L03.116 Cellulitis of left lower limb
CPT/HCPCS: 36415; 80053; 85025; 85651; 86140

== ENCOUNTER 2025-03-29 07:02 | Day surgery (SDC) | payer OTHER, SELFPAY ==
[2025-03-28 15:15] VITALS: BMI 32.1
[2025-03-29] VITALS (10 sets, daily range): BP systolic 114–158; BP diastolic 51–88; PULSE 58–82; RESP 16–18; TEMP 36.4–43; O2SAT 96–100
[2025-03-29] MEDS: 0.9 % SODIUM CHLORIDE 1000ML 1,000 ML 25 ML IV (07:40)
[2025-03-29 07:43] LABS: POC Glucose,Bedside 86 gm/dL (70-110)
--- NOTE | 2025-03-29 07:49 | EXP.ANES.CKL ---
[facility] Disclaimer: The information contained in this section may have been updated after the patient was seen, as this information can be updated by other users. Medical History Abscess of skin of left ankle Cellulitis of left ankle Cellulitis of left foot Claudication Palpitations Dizziness Paroxysmal A-fib Left bundle branch block Abnormal ECG Mild tricuspid regurgitation Mild mitral regurgitation Mild aortic regurgitation Grade I diastolic dysfunction Hypertension Dyspnea Left elbow fracture Lumbar disc herniation with radiculopathy Low Back Pain Hand pain, left Swelling of left lower extremity Surgical History Status post right knee replacement History of shoulder surgery History of partial hysterectomy History of cholecystectomy Family History Other Family history of AR (myocardial infarction) Family history of kidney disease Hypertension Social History Smoking Status: Never smoker smoking status stop date: 1998 second hand exposure: Yes alcohol intake: never substance use type: denies use current occupational status: employed and other Travel in the last 8 weeks?: None household members: spouse housing: house 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 current occupational exposures/hazards: No caffeine: No Have you lived/traveled outside US in past 30 days?: No Contact w/someone who lives/traveled outside US past 30 days?: No Exposure to someone with infectious disease in past 14 days?: No Do you have a fever (greater than 100.4 F or 38 C)?: No Have you tested positive for COVID-19?: No Exposed to someone with COVID-19 in past 14 days?: No Do you have a sore throat?: No Do you have a cough?: No Do you have any weakness?: No Do you have any diarrhea?: No Are you experiencing any unusual bleeding?: No Do you have any muscle aches/pain?: No Do you have any abdominal pain?: No Are you experiencing loss of taste or smell?: No [facility] Anesthesia Checklist Patient Identification Patient Identification: Arm Band and Verbal (Name & ) Structural Data Admitted From: Home Planned Operative Procedure/s: L foot surgery Consent for Planned Operative Procedure(s) Verified: Yes Verified Documents: Surgical Consent NPO Status Verified Time NPO: 00:00 Chart Verification Results Verified: CBC and BMP Additional verifications Fingerstick Blood Glucose: 86 Anesthesia Reactions: No Hx Blood Transfusions: No Blood Transfusion Reaction: No Airway Assessment Mallampati Score:: Class II C-Spine Mobility Assessed: Yes TMJ Mobility Assessed: Yes Dentition: Good Dentition Neurological Assessment Level of Consciousness: Awake, Alert and Appropriate Hx Seizures: No Numbness or tingling in extremities: No Anesthesia Plan Anesthesia Risk discussed: Yes Anesthesia Plan: Verified ASA Class: II Anesthesia Type: General w/block
[2025-03-29] MEDS: VANCOMYCIN/WATER FOR INJ (PEG) 1.5 GM/300 ML PIGGYBACK IV (09:15)
[2025-03-29] MEDS: SODIUM CHLORIDE IRRIG SOLUTION 3,000 ML 200 ML IR (09:27)
--- NOTE | 2025-03-29 10:54 | XR_ITS ---
FINAL REPORT CLINICAL HISTORY: s/p exostectomy/STM removal COMPARISON: 08/11/2024 FINDINGS: AP, oblique, and lateral views of the left ankle were obtained. There is no fracture or dislocation. Mild degenerative joint disease. Hardware is present in the medial midfoot. Diffuse soft tissue edema is noted. There is subcutaneous air along the anterolateral foot, likely postoperative. IMPRESSION: No acute osseous abnormality of the left ankle. Soft tissue edema and subcutaneous air, as above. Reviewed, Interpreted and Dictated by Marina Bernal MD Transcribed by Maile Matias Authenticated and [facility]
--- NOTE | 2025-03-29 10:55 | P.OP_ITS ---
Date of procedure: 03/29/25 Pre-op Diagnosis:: Left peroneal tendinitis, suspected tear Left ankle soft tissue mass Left foot dorsal foot spur/mass Retained suture/foreign body reaction/scar tissue Post-op Diagnosis:: Same Procedure performed:: Left foot I&D (soft tissue below deep fascia) peroneal brevis tendon repair peroneaus longus tenosynovectomy partial excision talus bone spur/exostectomy nerve decompression excision ganglion cyst foot excision of ankle lipoma removal of deep foreign body Surgeon:: Ya Helms DPM Anesthesia: GETA, regional (Left popliteal nerve block) and local (20cc 0.5% Marcaine plain) Estimated blood loss (mL): 30 Clinical Note:: Patient is a 59-year-old diabetic female with chronic left foot/ankle pain. Patient has had extensive conservative and surgical treatment including: Modification of shoe gear, modification of activity, ice/heat, elevation, compression therapy, immobilization, cojk-gls-mmbdyjs bracing, formal physical therapy, custom bracing/orthotics, steroid injections, oral steroids/NSAIDs, topical pain cream, second opinion with [facility]. Imaging reviewed included: X-rays and MRI left foot/ankle shows what I still suspect given her focal area of pain and the thinning on the MRI that she has a peroneal tendon longitudinal split tear that is trying to heal but has not fully healed. Also discussed the palpable soft tissue mass x2 at the anterior and medial foot/ankle does correlate to an area on the MRI which can be surgically excised if painful. Images shown and discussed with the patient. We discussed foreign body reaction to the suture and likely cause of site opening and closing again. Conservative treatment discussed but has been exhausted. We discussed surgery extensively in the past but decision made to wait due to social circumstances for her to return from vacation/hiking trip. She is now ready to proceed. Discussed left foot surgery: left foot I&D, suture removal, left peroneal debridement and repair, left medial foot/anterior ankle soft tissue mass removal (reports hardware not painful/palpable so plan to keep for now) . With the conservative care and orthotics/bracing the ankle instability has improved. We discussed her higher risk of post-op complications with co-morbidities: diabetes, obesity, previous surgery. Common risks and benefits were discussed including but not limited to: damage to blood vessels and nerves, bleeding, persistent/recurrent infection, wound complications/wound dehiscence, delayed/mal or non-union of bone, intraop fracture, post-traumatic arthritis, incomplete removal of soft tissue mass/recurrence of soft tissue mass, adjacent joint arthritis progression, need for further surgery, implant failure, need for removal of implant, foreign body reaction, prolonged or permanent swelling of the extremity, prolonged or permanent pain or deformity, CRPS/RSD, DVT/PE, and anesthetic complications including . Denies personal/FH of DVT/PE and does not smoke. Discussed how diabetes can affect wound healing, last Ha1c 5.3%. Discussed post op oral antibiotics based on intraop findings. No guarantees were given. All questions fully answered to patient's satisfaction. The patient verbalized understanding and agreed to proceed with surgery. Written and verbal consent was obtained. Operative findings:: Left anterior ankle soft tissue mass noted, suspected lipoma approximately 2 cm round. Left dorsal TN exostosis/bone spur with small soft tissue mass ~1cm round. Soft tissue mass likely more synovitic scar tissue than ganglion cyst. Lateral foot fragile skin over prior suture abscess and foreign body reaction site. Scar tissue excised full-thickness and sent as specimen to path. No purulence malodor or drainage. No deep signs of infection. Peroneal tendons were evaluated. Peroneus brevis had a 3 cm longitudinal split tear just distal to the distal fibula. Peroneus longus tenosynovitis noted with no rupture or tear of the tendon. Operative note:: On this date and time, the patient was deemed an appropriate surgical candidate. With informed consent signed, the patient was taken to the operating theater. The patient was positioned supine. General anesthesia was induced. Left thigh tourniquet applied @225mmHg. The left lower extremity was prepped and draped in normal sterile fashion. IV Vanco infused. Left ankle soft tissue mass/lipoma excision: Attention was directed to the medial ankle where a palpable prominence was noted. Dissection down to the level of the mass. It was transected and removed in total and sent as specimen to pathology. Wound flushed with normal saline. Left excision of soft tissue mass, nerve decompression: Attention was directed to the dorsal foot where a linear incision was mapped out extending over the ta deyanira and navicular directly over the soft tissue mass/bone spur prominence. Dissection was carried through skin to subcutaneous tissue with care taken to maintain surgical hemostasis and safely retract neurovascular structures. The extensor tendon was identified and there appeared to be a soft tissue mass arising that was more palpable. Intermediate dorsal cutaneous nerve was entrapped between the soft tissue mass. The nerve was dissected off a soft tissue mass, decompressed. Soft tissue mass was excised in total and sent to pathology specimen. The wound was flushed with copious amounts normal sterile saline. Left partial excision talus bone spur/exostectomy: Next rongeur and hand rasp were utilized to remove and then smooth down the bone spur at the dorsal talus, talonavicular joint. Bone appeared hard and normal texture and color but a piece was removed and sent for bone pathology. Left foot I&D, removal of deep foreign body: Attention was then directed to the lateral left lateral calcaneal cuboid joint where prior incision was noted. Semielliptical incision was mapped out around the thick scar tissue at the site of the previous foreign body reaction. Sharp dissection through the area. The lateral suture/scar tissue was sent to pathology specimen. I&D through skin, subcutaneous tissue, deep fascia performed. No purulence malodor or drainage noted. No deep signs of infection. Some previous deep suture was noted and removed without complication. Left peroneus longus tenosynovectomy: Peroneal sheath was transected and evaluated. Synovitic fluid noted around the longus tendon. It was debrided with 15 blade and forceps. Left peroneus brevis tendon tear: Synovitic fluid noted around the brevis tendon as well as a 3 cm longitudinal split tear. The nonviable tendon tissue was debrided with 15 blade and forceps and sent to pathology specimen. Next Prolene and Monocryl were used to reapproximate and read tubularized the tendon. Wound flushed with normal sterile saline. Tendon strength within normal limits. Neuroectomy, application of amniotic graft: The medial and intermediate dorsal cutaneous nerves were identified. The MCDN had been retracted and the IDCN resected where it attached to the soft tissue mass. A 4x4cm amniotic graft was then wrapped around the nerves to prevent scar tissue and adhesions to help decrease nerve symptoms. Another piece of the graft was applied to the peroneal tendon to prevent scar tissue and adhesions. Subcutaneous tissue reapproximated with monocryl in a running fashion. Subcuticular closure with monocryl. Dermabond prineo applied to medial ankle and dorsal foot incisions. Prolene used to reapproximate the skin in an interrupted fashion to lateral incision. A Hemiguard was applied to lateral incision at previous scar tissue site to prevent wound dehiscence. The skin was cleansed. 20cc of 0.5% Marcaine plain was then infiltrated to the incision site. Betadine soaked gauze, dry sterile dressing was applied to the foot. The patient was awoken from anesthesia and transferred to recovery with vital signs stable and neurovascular status intact. Patient appeared to tolerate procedure and anesthesia well without complication. Materials: Paligen amniotic graft x 1 (4x4cm), Dermabond prineo Discharge/Plan: Patient is to maintain dressing clean dry and intact. Ice to the top of the foot and elevate on two pillows. Non weight bearing to the left lower extremity with DME assistance (RKS/walker). Okay to put heel down in fracture boot for short distances around the bathroom and transfers only. Follow up in one week as scheduled for incision check and dressing change. Tourniquet time (min): 61 Condition: stable Disposition: same day Specimens:: Path: Left dorsal bone spur dorsal tissue mass left ankle lipoma suture/scar peroneal tendon Complications:: None
--- NOTE | 2025-03-29 10:56 | P.PNANES_ITS ---
[facility] Anesthesia Record Part I Anesthesia Record I Intake, IV Amount: 2,000 Hydration: Adequate Estimated blood loss (mL): 0 Urine output (mL): 0 Blood Pressure: 136/79 SaO2: 96 Pulse Rate: 82 Airway Patency: Patent Respiratory Rate: 16 Temperature: 97.5 F Patient is:: Awake and Stable Stable to PACU at:: 10:50
--- NOTE | 2025-03-30 10:21 | P.PNANES_ITS ---
[facility] Anesthesia Record Part II Anesthesia Record Part II Discharge Time: 11:51 Destination: Surgical Day Care (OP Surgery) PACU nurse assessment reviewed?: Yes Patient Condition:: Good Anesthesia Complications:: None Swallowing reflex intact?: Yes Airway Patency: Patent Cyanosis?: No Blood Pressure: 144/68 SaO2: 97 Respiratory Rate: 16 Pulse Rate: 58 Temperature: 97.8 F Mental Status: Alert & Oriented Pain level:: 0 Nausea and/or vomitting:: None Intake, IV Amount: 0 Hydration: Adequate
[2025-03-30 10:22] VITALS: BP 144/68; PULSE 58; RESP 16; TEMP 36.6; O2SAT 97
== END 2025-03-29 11:51 | disposition home or self-care (01) ==
PROVIDERS: PCP Family Medicine; Visit Provider Podiatrist
PROC: (CPT 27632; principal; 2025-03-29 09:00)
DX: S86.312A Strain of muscle(s) and tendon(s) of peroneal muscle group at lower leg level, left leg, initial encounter (principal); X58.XXXA Exposure to other specified factors, initial encounter; M76.72 Peroneal tendinitis, left leg; M60.20 Foreign body granuloma of soft tissue, not elsewhere classified, unspecified site; M79.89 Other specified soft tissue disorders; M67.472 Ganglion, left ankle and foot; I89.0 Lymphedema, not elsewhere classified; E11.41 Type 2 diabetes mellitus with diabetic mononeuropathy; E66.811 Obesity, class 1; M79.2 Neuralgia and neuritis, unspecified; S92.025S Nondisplaced fracture of anterior process of left calcaneus, sequela; I10 Essential (primary) hypertension; I48.0 Paroxysmal atrial fibrillation; Z90.49 Acquired absence of other specified parts of digestive tract; Z90.711 Acquired absence of uterus with remaining cervical stump; Z96.651 Presence of right artificial knee joint; Z88.8 Allergy status to other drugs, medicaments and biological substances; Z79.899 Other long term (current) drug therapy; Z68.32 Body mass index [BMI] 32.0-32.9, adult
CPT/HCPCS: 27632; 27658; 27691; 28003; 28192; 64704; 64708; 73610; 82962; J1100; J2003; J2250; J2405; J2704; J3010; J3375; J7030; Q4354

== ENCOUNTER 2025-04-19 11:11 | Outpatient (CLI) | payer OTHER, SELFPAY ==
--- OUTSIDE RECORDS SUMMARY | 2025-04-19 11:15 | XMS_ITS | Clinical Summary ---
Author Organization Healthcare Address [address] [place] [address] Care Team Providers Care Behavioral Health Case Manager Name Role Phone Tangela Topete APRN Primary Care Provider [phone] Allergies No known active allergies Medications methocarbamol [...] 2016 UKY-Zoster Vaccines (1 of 2) 2016 [id number]-[id number]-[id number] Vaccine (1 - 20 season) 2025 UKY-Influenza Vaccine (#1) 2025 HPV [...] patient's age to complete this topic Insurance [facility] Care Teams Behavioral Health Case Manager Relationship Specialty Start Date End Date Tangela Topete APRN [address] [place], [place] [id number] PCP - General 01/24/21
--- OUTSIDE RECORDS SUMMARY | 2025-04-19 11:15 | XMS_ITS | Clinical Summary ---
[facility] [address] [place] [address] Care Team Providers Care Landfill Gas Collection Operator Name Role Phone Tangela Topete APRN Primary Care Provider Social History Tobacco Use Types Packs/Day Years [...] of 2) 2016 INFLUENZA VACCINE 12/23/2024 Insurance [facility] [employer] Care Teams Landfill Gas Collection Operator Relationship Specialty Start Date End Date Tangela Topete APRN [facility] [place] [address] PCP - General Obstetrics and Gynecology 02/19/21
--- NOTE | 2025-04-19 11:21 | XR_ITS ---
FINAL REPORT CLINICAL HISTORY: PAIN AND NUMBNESS tingling in 4th and 5th digit FINDINGS: AP, oblique, and lateral views of the right wrist were obtained. There is no prior exam for comparison. There is no acute fracture or dislocation. There is degenerative joint disease of the first carpometacarpal joint. The soft tissues are normal. IMPRESSION: Degenerative joint disease of the first carpometacarpal joint. Reviewed, Interpreted and Dictated by Marina Bernal MD Transcribed by Sheri Rosario Authenticated and [facility]
== END 2025-04-19 23:59 | disposition home or self-care (01) ==
LOC: RAD 11:13
PROVIDERS: PCP Family Medicine; Visit Provider Physical Medicine & Rehabilitation
DX: M19.032 Primary osteoarthritis, left wrist (principal); R20.0 Anesthesia of skin
CPT/HCPCS: 73110